=== PATIENT | female | born 1935 | race Caucasian/White ===

== ENCOUNTER 2020-01-11 12:44 | Outpatient (CLI) | payer MEDICARE, SELFPAY ==
[2020-01-11 13:14] LABS: Basophils % 0.2 %; Eosinophils # 0.3 10^3/uL (0.0-0.8); Eosinophils % 5.2 %; Hematocrit 44.2 % (37.0-47.0); Hemoglobin 13.4 g/dL (11.5-15.3); Lymphocytes # 1.1 10^3/uL (0.8-4.8); Lymphocytes % 22.2 %; Mean Corpuscular HGB Conc 30.3 g/dL (30.0-36.0); Mean Corpuscular Volume 92.5 fL (81-99); Mean Platelet Volume 9.1 fL (7.4-10.4); Monocytes # 0.4 10^3/uL (0.2-0.9); Monocytes % 8.1 %; Neutrophils # 3.2 10^3/uL (1.8-7.7); Neutrophils % 63.9 %; Nucleated Red Blood Cells % 0 %; Platelet Count 243 10^3/cmm (130-400); Red Blood Count 4.78 10^6/uL (4.1-5.3); Red Cell Distribution Width 13.2 % (12.1-15.1)
[2020-01-11 14:33] LABS: Alanine Aminotransferase 20 U/L (0-33); Albumin Level 4.5 g/dL (3.5-5.2); Alkaline Phosphatase 75 IU/L (35-105); Anion Gap 15.9 (5-19); Aspartate Amino Transferase 31 U/L (0-32); Blood Urea Nitrogen 29 mg/dL (8-23); Calcium 10.4 mg/dL (8.5-10.5); Carbon Dioxide 28 mmol/L (22-29); Chloride 98 mmol/L (98-107); Ferritin 84 ng/mL (15-150); Glucose 110 mg/dL (65-115); Iron 83 ug/dL (37-145); Osmolality Calculated 284 mOsm/kg (285-295); Percent Saturation 29.2 % (20-50); Potassium 3.9 mmol/L (3.5-5.1); Sodium 138 mmol/L (136-145); Total Bilirubin 0.5 mg/dL (0.15-1.2); Total Iron Binding Capacity 284 mcg/dl; Total Protein 7.5 g/dL (6.6-8.7); Unsaturated Iron Binding 201 ug/dL (112-347)
== END 2020-01-11 12:45 | disposition home or self-care (01) ==
LOC: LAB 12:49 → ONCMED 15:26
PROVIDERS: PCP Family Medicine; Visit Provider Internal Medicine Hematology & Oncology
DX: C18.2 Malignant neoplasm of ascending colon (principal); R91.8 Other nonspecific abnormal finding of lung field; K63.89 Other specified diseases of intestine
CPT/HCPCS: 36415; 71250; 74176; 80053; 82378; 82728; 83540; 83550; 85025

== ENCOUNTER 2020-01-11 14:00 | Outpatient (CLI) | payer MEDICARE, SELFPAY ==
[2020-01-03] MEDS: iohexol 300 mg/mL 50 mL Btl PO (11:20)
--- NOTE | 2020-01-11 14:08 | CT_ITS ---
WS: [id number] CT CHEST, ABDOMEN, AND PELVIS TECHNIQUE: Noncontrast CT of the chest, abdomen, and pelvis with coronal and sagittal reformatted karley ges. CLINICAL INFORMATION: COLON CANCER COMPARISON: CT chest April 18, 2019, August 31, 2018, PET/CT March 05, 2018, CT abdomen pelvis No vember 2016 and September 2016 DLP: 1600.[address] scans at [facility] use at least one of these dose optimization techniques: automat ed exposure control; mA and/or kV adjustment per patient size (includes targeted exams where dose is matched to clinical indication); or iterative reconstruction. CT CHEST: Again seen are several noncalcified pulmonary nodules largest in the left lower lobe measuring 7.5 mm unchanged. Stable noncalcified nodule superior segment left lower lobe measuring 4.5 mm. Tiny subple ural nodule left lower lobe laterally measuring 2.5 mm is unchanged. Additional faint nodule left low er lobe posteriorly measuring 3.7 mm also unchanged. Vascular calcification including coronary. Normal caliber thoracic aorta. No mediastinal or hilar lym phadenopathy. No axillary lymphadenopathy. Adrenal glands are normal. Cholecystectomy clips. Mild tho racic curve. Moderate thoracic kyphosis. CT ABDOMEN AND PELVIS: Noncontrast liver is normal in appearance. Prior cholecystectomy. Adrenal glands are normal. Normal G E junction. Normal noncontrast spleen. Mild aortic calcification. Lobulated nodule along the perineum measuring 2.6 x 2.3 cm is unchanged since 2017. Prior hysterectomy. 2.5 cm lucent lesion in the left ilium is unchanged since 2017. CT/CT chest abd pel wo con IMPRESSION: 1. Noncalcified left greater than right pulmonary nodules unchanged since the prior examination. Recommend 12 month follow-up. 2. Stable largest nodule in the left lower lobe laterally measuring 7.5 mm. 3. No mediastinal or hilar lymphadenopathy. 4. Prior partial colectomy with anastomosis. 5. Stable nodule in the right perineum measuring 2.3 x 2.6 CM. 6. No evidence of new or progressive disease in the chest abdomen or pelvis. 7. Prior cholecystectomy and hysterectomy.
== END 2020-01-11 14:01 | disposition home or self-care (01) ==
LOC: RADWPI 14:01
PROVIDERS: PCP Family Medicine; Visit Provider Internal Medicine Hematology & Oncology
DX: C18.2 Malignant neoplasm of ascending colon (principal); R91.8 Other nonspecific abnormal finding of lung field; K63.89 Other specified diseases of intestine
CPT/HCPCS: 71250; 74176

== ENCOUNTER 2020-01-17 11:26 | Outpatient (CLI) | payer MEDICARE, SELFPAY ==
--- NOTE | 2020-01-29 16:10 | ONC FU_ITS ---
Dr. Duong follow up note Patient: Rhina Brewer Unit #: [id number]: 1935 Dicatated By: Allen Duong M.D.Date of Visit:Jan 17, 2020 Onc Med Follow-up/Prog Note History of Present Illness: Mrs. Rhina Brewer, 84 -year-old, female with long-standing history of alternating constipation and diarrhea , had CT scan of abdomen done in August 2016 showed thickening of the wall of cecum as well as 2.9 cm perineal soft tissue mass and noncalcified 7.6 mm pulmonary nodules in left lower lung subsequently underwent endoscopy on 10/20/2016 showed internal hemorrhoids and 5 mm sessile polyp removed from sigmoid colon and other 5 mm sessile polyp removed from transverse colon addresses was normal and final path report was adenomatous polyps. Then again she underwent follow-up is EGD colonoscopy on 06/01/2017 and it showed circumferential cecal mass and a biopsy was obtained it showed low-grade well to moderately differentiated infiltrating adenocarcinoma subsequently on 06/04/2017 she underwent laparoscopic right hemicolectomy with extracorporeal ileo colic stapled anastomosis and final pathology report came back low-grade infiltrating adenocarcinoma, 0 out of 16 lymph nodes positive. Patient tolerated surgery very well, Now being monitored Last colonoscopy was done on 09/13/2018, was unremarkable Follow-up CT scan of chest abdomen pelvis done on 04/18/2019 showed left greater than right noncalcified pulmonary nodules unchanged from the prior exam Largest nodule in the left lower lobe measuring 7.5 mm. The previously described right middle lobe peribronchial nodularity is stable to improved likely inflammatory No mediastinal or hilar lymphadenopathy no intrahepatic pathology Came for follow-up, denies any specific complaints, no nausea or vomiting, no diarrhea constipation, no abdominal pain, no melena or hematochezia, appetite is good. = Medications: Chlorpheniramine Maleate 1 Tablet (of 4 mg) Oral q 4 hours, Cholecalciferol 1 (58268 Units) Capsule Oral q 14 days, Latanoprost 1 drop(s) (of 0.005 %) Solution Ophthalmic daily, Levothyroxine Sodium 1 (25 mcg) Tablet Oral daily, Lisinopril-Hydrochlorothiazide 1 Tablet (of 20-12.5 mg) Oral daily, Vitamin B12 1 Tablet (of 1000 mg) Oral daily Allergies: Codeine and Related, OxyCODONE HCl, TraMADol HCl, and Vicodin. Review of Systems: Review of Systems is not available for this patient. Vital Signs: Performed on Jan 17, 2020 11:50 Height - 65.50 in Weight - 123.8 lbs BSA - 1.62 sq.m BMI - 20.29 Temperature - 98.0 F (LOW) Pulse - 57 /min (LOW) Respiration - 18 /min BP - 144/73 mm(hg) (HIGH) O2 Sat - 96 % Pain - 0 Performance Status: 0 - Fully active, able to carry on all predisease activities without restrictions. (ECOG) Physical Examination: ENMT - no mouth sores, no thrush, no jaundice, Respiratory - Lungs are clear, Cardiovascular - Regular rate and rhythm of heart, Abdomen - soft, bowel sounds present, Extremities - no visible edema. Lab/Imaging: Test performed on January 11, 2020 12:50 Ferritin 84 ng/mL % Iron Saturation 29.2 % Glucose 110 mg/dL BUN 29 mg/dL Iron, Total 83 mcg/dL Creatinine 1.0 mg/dL TIBC 284 mcg/dL Cr Clearance (Est) 37.13 mL/min Sodium 138 mmol/L Potassium 3.9 mmol/L Chloride 98 mmol/L CO2 28 mmol/L Calcium 10.4 mg/dL Protein, Total 7.5 g/dL Albumin 4.5 g/dL Globulin 3.0 g/dL Bilirubin, Total 0.5 mg/dL Alkaline Phosphatase 75 IU/L AST (SGOT) 31 IU/L ALT (SGPT) 20 IU/L WBC 5.0 10^9/L RBC 4.78 10^12/L HGB 13.4 g/dL HCT 44.2 % MCV 92.5 fl MCH 28.0 pg MCHC 30.3 g/dL RDW 13.2 % Platelet Count 243 10^9/L MPV 9.1 fL Neutrophils (Gran) 3.2 10^9/L Lymphocytes 1.1 10^9/L Monocytes 0.4 10^9/L Eosinophils 0.3 10^9/L Basophils 0.0 10^9/L Manual Lymphocytes 22.2 % Manual Monocytes 8.1 % Manual Eosinophils 5.2 % Manual Basophils 0.2 % CEA 3.0 ng/mL Test performed on Jul 27, 2019 12:05 UIBC 187 ug/dL Anion Gap 16.8 Neutrophil % 67.6 % Lymphocyte % 22.5 % Monocyte % 7.2 % Eosinophil % 2.3 % Basophils % 0.2 % Impression: 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 Low-grade well to moderately differentiated, invasion focally to muscularis propria into superficial serosal connective tissue. Tumor dimensions 6.3 x 3.2 cm T3 Margins clear 16 pericolonic lymph nodes were removed showed no metastasis . 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 due to carcinoma of cecum now on oral iron but noncompliant due to intolerance resolved CT scan of chest done on 08/31/2018 showed no significant change in previously noted bilateral pulmonary nodules and distal third esophageal wall thickening versus pseudo-thickening, Plan: Discussed with patient regarding her labs from 01/11/2020 showed white blood count 5 hemoglobin 13.4 crit 44.2 platelets 243,000 CMP within normal limits CEA 3.[address] scan of chest abdomen pelvis showed no recurrence of disease. Stable noncalcified left greater than right pulmonary nodules unchanged since prior exam. Stable largest nodule in the left lower lobe measuring 7.5 mm. Stable nodule in the right perineum since 2017, measuring 2.3 x 2.6 cm. Clinically, patient is doing well with no signs symptom suggestive of disease progression and her lab workup as well as follow-up CT scan of chest abdomen pelvis showed no evidence of recurrence of disease and stable pulmonary nodules. And PET scan in 12 months is recommended , In that case patient will return to clinic in 6 months with CBC CMP and CEA. Signed By: Allen Duong M.D. <<Signature on File>>
== END 2020-01-17 11:27 | disposition home or self-care (01) ==
LOC: ONCMED 11:33
PROVIDERS: PCP Family Medicine; Visit Provider Internal Medicine Hematology & Oncology
DX: Z08 Encounter for follow-up examination after completed treatment for malignant neoplasm (principal); Z85.038 Personal history of other malignant neoplasm of large intestine; R91.8 Other nonspecific abnormal finding of lung field; Z90.49 Acquired absence of other specified parts of digestive tract; Z86.2 Personal history of diseases of the blood and blood-forming organs and certain disorders involving the immune mechanism
CPT/HCPCS: 99214; G0463

== ENCOUNTER 2020-02-07 10:30 | Outpatient (CLI) | payer MEDICARE, SELFPAY ==
--- NOTE | 2020-02-07 10:39 | XR_ITS ---
WS: [id number] THORACIC SPINE TECHNIQUE: 3 views of the thoracic spine CLINICAL INFORMATION: CHRONIC BACK PAIN COMPARISON: None. FINDINGS: Mild lumbar curve convex left. Aortic calcification. Lungs are well aerated. Cholecystectomy clips. M ild thoracic kyphosis. No acute appearing compression fractures. Disc space heights and vertebral bod y heights well-preserved. XR/XR thoracic spine 2V [id number] IMPRESSION: 1. No acute appearing thoracic spine findings.
--- NOTE | 2020-02-07 10:40 | XR_ITS ---
WS: [id number] LUMBAR SPINE TECHNIQUE: 3 views of the lumbar spine CLINICAL INFORMATION: CHRONIC BACK PAIN COMPARISON: None. FINDINGS: Mild lumbar curve convex right. Moderate to advanced spondylitic changes. Cholecystectomy clips. Five [id number] lumbar vertebral bodies. Disc space narrowing worse at L1-L2, L4-L5 and L5-S1. O steopenia. Moderate to advanced arthropathy L5-S1 with bony foraminal narrowing. Chronic appearing mi ld compression superior endplates at L1 L2 and L3 appears unchanged since 2014 XR/XR lumbar spine 2-3V* [id number] IMPRESSION: 1. Mild lumbar curve convex right with moderate to advanced spondylitic change s. 2. Disc space narrowing worse at L1-L2, L4-L5 and L5-S1. 3. No acute appearing compression fractures. 4. Moderate to advanced facet arthropathy L5-S1.
== END 2020-02-07 10:31 | disposition home or self-care (01) ==
LOC: RADWPI 10:34
PROVIDERS: Family Provider Family Medicine; PCP Family Medicine; Visit Provider Family Medicine
DX: M54.89 Other dorsalgia (principal); G89.29 Other chronic pain; M48.061 Spinal stenosis, lumbar region without neurogenic claudication; M47.817 Spondylosis without myelopathy or radiculopathy, lumbosacral region
CPT/HCPCS: 72070; 72100

== ENCOUNTER 2020-05-01 12:02 | Outpatient (CLI) | payer MEDICARE, SELFPAY ==
--- NOTE | 2020-05-01 12:07 | MR_ITS ---
WS: [id number] MRI HEAD WITHOUT CONTRAST TECHNIQUE: Sagittal T1, T2 axial, T2 axial FLAIR, axial and coronal T1 images, axial susceptibility w eighted imaging, axial diffusion weighted images, and coronal T2 images were obtained. CLINICAL INFORMATION: ATYPICAL HEADACHE COMPARISON: MRI [address] FINDINGS: No evidence of restricted diffusion to suggest acute ischemia. Ventricular system and basal cisterns are patent. Moderate to advanced small vessel changes with moderate parenchymal volume loss. Normal p osterior fossa. Normal vascular flow voids at the skull base. No extra-axial fluid collections. No ev idence of mass or mass effect. Partial opacification of the left mastoid air cells. Mild mucosal thickening in the ethmoid air cells . Normal optic chiasm and pituitary infundibulum. Moderate to advanced symmetric atrophy involving the temporal lobes and hippocampal formations. No he mosiderin on the susceptibly weighted images. MR/MR head wo con* [id number] IMPRESSION: 1. No evidence of restricted diffusion to suggest acute ischemia. 2. Moderate to advanced small vessel changes with moderate parenchymal volume loss. 3. Moderate to advanced symmetric atrophy involving the temporal lobes and hip pocampal formations. 4. Partial opacification left mastoid air cells with mucosal thickening ethmoi d air cells.
== END 2020-05-01 12:03 | disposition home or self-care (01) ==
PROVIDERS: Family Provider Family Medicine; PCP Family Medicine; Visit Provider Family Medicine
DX: R51 Headache (principal); E53.8 Deficiency of other specified B group vitamins; E03.9 Hypothyroidism, unspecified; G31.9 Degenerative disease of nervous system, unspecified
CPT/HCPCS: 70551

== ENCOUNTER 2020-07-03 09:35 | Outpatient (CLI) | payer MEDICARE, SELFPAY ==
[2020-07-03 10:19] LABS: Basophils % 0.2 %; Eosinophils # 0.1 10^3/uL (0.0-0.8); Eosinophils % 2.5 %; Hematocrit 41.5 % (37.0-47.0); Hemoglobin 12.8 g/dL (11.5-15.3); Lymphocytes # 1.1 10^3/uL (0.8-4.8); Lymphocytes % 25.9 %; Mean Corpuscular HGB Conc 30.8 g/dL (30.0-36.0); Mean Corpuscular Hemoglobin 28.1 pg (28.0-34.0); Mean Corpuscular Volume 91.2 fL (81-99); Mean Platelet Volume 9.3 fL (7.4-10.4); Monocytes # 0.4 10^3/uL (0.2-0.9); Monocytes % 8.6 %; Neutrophils % 62.6 %; Nucleated Red Blood Cells % 0 %; Platelet Count 242 10^3/cmm (130-400); Red Blood Count 4.55 10^6/uL (4.1-5.3); Red Cell Distribution Width 12.9 % (12.1-15.1); White Blood Count 4.3 10^3/uL (4.0-10.0)
[2020-07-03 10:36] LABS: Alanine Aminotransferase 14 U/L (0-33); Albumin Level 4.5 g/dL (3.5-5.2); Alkaline Phosphatase 74 IU/L (35-105); Anion Gap 14.4 (5-19); Aspartate Amino Transferase 24 U/L (0-32); Blood Urea Nitrogen 25 mg/dL (8-23); Calcium 9.8 mg/dL (8.5-10.5); Carbon Dioxide 27 mmol/L (22-29); Chloride 100 mmol/L (98-107); Globulin 2.5 g/dL (1.3-4.6); Glucose 105 mg/dL (65-115); Osmolality Calculated 289 mOsm/kg (285-295); Potassium 4.4 mmol/L (3.5-5.1); Sodium 137 mmol/L (136-145); Total Bilirubin 0.4 mg/dL (0.15-1.2)
[2020-07-03 11:00] LABS: Carcinoembryonic Antigen 2.7 ng/mL (0.0-4.7)
--- NOTE | 2020-07-03 13:18 | ONC FU_ITS ---
Dr. Duong follow up note Patient: Rhina Brewer Unit #: [id number]: 1935 Dicatated By: Allen Duong M.D.Date of Visit:Jul 03, 2020 Onc Med Follow-up/Prog Note History of Present Illness: Mrs. Rhina Brewer, 84 -year-old, female with long-standing history of alternating constipation and diarrhea , had CT scan of abdomen done in August 2016 showed thickening of the wall of cecum as well as 2.9 cm perineal soft tissue mass and noncalcified 7.6 mm pulmonary nodules in left lower lung subsequently underwent endoscopy on 10/20/2016 showed internal hemorrhoids and 5 mm sessile polyp removed from sigmoid colon and other 5 mm sessile polyp removed from transverse colon addresses was normal and final path report was adenomatous polyps. Then again she underwent follow-up is EGD colonoscopy on 06/01/2017 and it showed circumferential cecal mass and a biopsy was obtained it showed low-grade well to moderately differentiated infiltrating adenocarcinoma subsequently on 06/04/2017 she underwent laparoscopic right hemicolectomy with extracorporeal ileo colic stapled anastomosis and final pathology report came back low-grade infiltrating adenocarcinoma, 0 out of 16 lymph nodes positive. Patient tolerated surgery very well, Now being monitored Last colonoscopy was done on 09/13/2018, was unremarkable Follow-up CT scan of chest abdomen pelvis done on 04/18/2019 showed left greater than right noncalcified pulmonary nodules unchanged from the prior exam Largest nodule in the left lower lobe measuring 7.5 mm. The previously described right middle lobe peribronchial nodularity is stable to improved likely inflammatory No mediastinal or hilar lymphadenopathy no intrahepatic pathology Came for follow-up, denies any specific complaints except chronic back pain which is, as per patient due to chronic arthritis and no melena or hematochezia, no nausea or vomiting, no diarrhea constipation, no jaundice, no abdominal pain, no hemoptysis or hematemesis, appetite is good = Medications: Chlorpheniramine Maleate 1 Tablet (of 4 mg) Oral q 4 hours, Cholecalciferol 1 (71626 Units) Capsule Oral q 14 days, Latanoprost 1 drop(s) (of 0.005 %) Solution Ophthalmic daily, Levothyroxine Sodium 1 (25 mcg) Tablet Oral daily, Lisinopril-Hydrochlorothiazide 1 Tablet (of 20-12.5 mg) Oral daily, Vitamin B12 1 Tablet (of 1000 mg) Oral daily Allergies: Codeine and Related, OxyCODONE HCl, TraMADol HCl, and Vicodin. Review of Systems: Review of Systems is not available for this patient. Vital Signs: Performed on Jul 03, 2020 11:28 Height - 65.50 in Weight - 118.2 lbs (LOW) BSA - 1.59 sq.m BMI - 19.37 Temperature - 98.0 F (LOW) Pulse - 58 /min (LOW) Respiration - 18 /min BP - 144/75 mm(hg) (HIGH) O2 Sat - 100 % Pain - 0 Performance Status: 0 - Fully active, able to carry on all predisease activities without restrictions. (ECOG) Physical Examination: ENMT - No mouth sores, no thrush, no jaundice, Respiratory - Lungs are clear to auscultation, Cardiovascular - Regular rate and rhythm of heart, Abdomen - Soft, bowel sounds present, Extremities - No visible edema. Lab/Imaging: Test performed on January 11, 2020 12:50 Ferritin 84 ng/mL % Iron Saturation 29.2 % Glucose 110 mg/dL BUN 29 mg/dL Iron, Total 83 mcg/dL Creatinine 1.0 mg/dL TIBC 284 mcg/dL Cr Clearance (Est) 37.13 mL/min Sodium 138 mmol/L Potassium 3.9 mmol/L Chloride 98 mmol/L CO2 28 mmol/L Calcium 10.4 mg/dL Protein, Total 7.5 g/dL Albumin 4.5 g/dL Globulin 3.0 g/dL Bilirubin, Total 0.5 mg/dL Alkaline Phosphatase 75 IU/L AST (SGOT) 31 IU/L ALT (SGPT) 20 IU/L WBC 5.0 10^9/L RBC 4.78 10^12/L HGB 13.4 g/dL HCT 44.2 % MCV 92.5 fl MCH 28.0 pg MCHC 30.3 g/dL RDW 13.2 % Platelet Count 243 10^9/L MPV 9.1 fL Neutrophils (Gran) 3.2 10^9/L Lymphocytes 1.1 10^9/L Monocytes 0.4 10^9/L Eosinophils 0.3 10^9/L Basophils 0.0 10^9/L Manual Lymphocytes 22.2 % Manual Monocytes 8.1 % Manual Eosinophils 5.2 % Manual Basophils 0.2 % CEA 3.0 ng/mL Impression: 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 Low-grade well to moderately differentiated, invasion focally to muscularis propria into superficial serosal connective tissue. Tumor dimensions 6.3 x 3.2 cm T3 Margins clear 16 pericolonic lymph nodes were removed showed no metastasis . 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 due to carcinoma of cecum now on oral iron but noncompliant due to intolerance resolved CT scan of chest done on 08/31/2018 showed no significant change in previously noted bilateral pulmonary nodules and distal third esophageal wall thickening versus pseudo-thickening, Plan: Discussed with patient regarding her labs white blood count 4.3 hemoglobin 12.8 hematocrit 41.5 platelets 242,000 CMP within normal limits CEA 2.7 Clinically, patient is doing well with no new signs symptoms suggestive of recurrence of disease her follow-up lab work-up within normal range As far as bilateral pulmonary nodules are concerned, will consider CT scan of chest prior to next visit in 6 months with CBC CMP Signed By: Allen Duong M.D. <<Signature on File>>
== END 2020-07-03 09:36 | disposition home or self-care (01) ==
LOC: ONCMED 09:39
PROVIDERS: PCP Family Medicine; Visit Provider Internal Medicine Hematology & Oncology
DX: Z08 Encounter for follow-up examination after completed treatment for malignant neoplasm (principal); Z85.038 Personal history of other malignant neoplasm of large intestine; R91.8 Other nonspecific abnormal finding of lung field; Z90.49 Acquired absence of other specified parts of digestive tract
CPT/HCPCS: 36415; 80053; 82378; 85025; G0463

== ENCOUNTER 2020-11-06 11:08 | Outpatient (CLI) | payer MEDICARE, SELFPAY ==
--- NOTE | 2020-11-06 11:20 | MM_ITS ---
WS: [id number] DIAGNOSTIC BILATERAL DIGITAL MAMMOGRAM WITH CAD RIGHT breast ultrasound, limited HISTORY: RIGHT BREAST MASS COMPARISON: 01/03/2015 TECHNIQUE: Bilateral craniocaudad, mediolateral oblique, and mediolateral views are submitted. Spot c ompression RIGHT CC. Computer aided detection utilized. Breast composition: There are scattered areas of fibroglandular density. Spiculated mass with increas ed density noted in the posterior RIGHT breast just below and lateral to the nipple line. There is ad jacent tethering and mild distortion associated with the mass. Otherwise benign calcifications in eac h breast and vascular calcifications. RIGHT breast ultrasound, limited. Solid mass in the RIGHT breast at 7:00 in the subareolar location corresponds to the mammographic abn ormality. Lobulated borders with increased vascularity. Mass measures 1.7 x 1.3 x 2.1 cm. MM/[place] [id number] IMPRESSION: BI-RADS: 5-Highly Suggestive of Malignancy FOLLOW UP: Biopsy Recommended Ultrasound-guided biopsy recommended of the RIGHT breast mass at 7:00. Notified Deshawn Marin MD at 11/06/2020 12:35 PM.
== END 2020-11-06 11:09 | disposition home or self-care (01) ==
LOC: RADSHAW 11:13
PROVIDERS: PCP Family Medicine; Visit Provider Family Medicine
DX: N63.13 Unspecified lump in the right breast, lower outer quadrant (principal)
CPT/HCPCS: 76642; 77066

== ENCOUNTER 2020-11-11 11:39 | Outpatient (CLI) | payer MEDICARE, SELFPAY ==
--- NOTE | 2020-11-11 11:59 | US_ITS ---
WS: [id number] ULTRASOUND-GUIDED RIGHT BREAST BIOPSY HISTORY: R BREAST MASS COMPARISON: 11/06/2020 Procedure, risks and complications are explained to the patient. Medications are reviewed. Consent is obtained. The mass in the RIGHT breast is localized with ultrasound. Mass localizes to 7:00. Skin is cleansed w ith ChloraPrep and anesthetized with 1% buffered lidocaine. Small dermatome is made. Under sterile co nditions mass is biopsied with a 14-gauge Achieve needle. Multiple core biopsies are performed. Mater ial placed in formalin and sent to pathology for review. No complications encountered. Breast tissue marker (Joystickers ultrasound enhanced ribbon): Single. Patient left the radiology suite with no complications. Patient is instructed to return to [facility] or [facility] with any concerns. US/[place] [id number] IMPRESSION: 1. Uncomplicated core needle biopsy RIGHT breast mass at 7:00. 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 RECOMMENDATION: Surgical and oncologic follow-up.
[2020-11-25 12:10] LABS: Miscellaneous Test See Scanned Lab Rpt
== END 2020-11-11 11:40 | disposition home or self-care (01) ==
LOC: RAD 11:46
PROVIDERS: PCP Family Medicine; Visit Provider Family Medicine
DX: R92.8 Other abnormal and inconclusive findings on diagnostic imaging of breast (principal); C50.511 Malignant neoplasm of lower-outer quadrant of right female breast
CPT/HCPCS: 19083; 88305; 88361; 88367; 88374

== ENCOUNTER 2020-11-27 12:45 | Outpatient (CLI) | payer MEDICARE, SELFPAY ==
--- NOTE | 2020-11-27 16:43 | ONC FU_ITS ---
Dr. Duong follow up note Patient: Rhina Brewer Unit #: [id number]: 1935 Dicatated By: Allen Duong M.D.Date of Visit:Nov 27, 2020 Onc Med Follow-up/Prog Note History of Present Illness: Mrs. Rhina Brewer, 85 -year-old, female with long-standing history of alternating constipation and diarrhea , had CT scan of abdomen done in August 2016 showed thickening of the wall of cecum as well as 2.9 cm perineal soft tissue mass and noncalcified 7.6 mm pulmonary nodules in left lower lung subsequently underwent endoscopy on 10/20/2016 showed internal hemorrhoids and 5 mm sessile polyp removed from sigmoid colon and other 5 mm sessile polyp removed from transverse colon addresses was normal and final path report was adenomatous polyps. Then again she underwent follow-up is EGD colonoscopy on 06/01/2017 and it showed circumferential cecal mass and a biopsy was obtained it showed low-grade well to moderately differentiated infiltrating adenocarcinoma subsequently on 06/04/2017 she underwent laparoscopic right hemicolectomy with extracorporeal ileo colic stapled anastomosis and final pathology report came back low-grade infiltrating adenocarcinoma, 0 out of 16 lymph nodes positive. Patient tolerated surgery very well, Now being monitored Last colonoscopy was done on 09/13/2018, was unremarkable Follow-up CT scan of chest abdomen pelvis done on 04/18/2019 showed left greater than right noncalcified pulmonary nodules unchanged from the prior exam Largest nodule in the left lower lobe measuring 7.5 mm. 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 Other than that patient denies any melena or hematochezia, denies any jaundice denies any bony pains denies any right axillary fullness denies any nipple discharge denies any headaches blurred vision or double vision. Denies any weight loss. = Medications: Chlorpheniramine Maleate 1 Tablet (of 4 mg) Oral q 4 hours, Cholecalciferol 1 (44223 Units) Capsule Oral q 14 days, Latanoprost 1 drop(s) (of 0.005 %) Solution Ophthalmic daily, Levothyroxine Sodium 1 (25 mcg) Tablet Oral daily, Lisinopril-Hydrochlorothiazide 1 Tablet (of 20-12.5 mg) Oral daily, Vitamin B12 1 Tablet (of 1000 mg) Oral daily Allergies: Codeine and Related, OxyCODONE HCl, TraMADol HCl, and Vicodin. Review of Systems: Review of Systems is not available for this patient. Vital Signs: Performed on Nov 27, 2020 15:15 Height - 65.50 in Weight - 113 lbs (LOW) BSA - 1.56 sq.m BMI - 18.52 Temperature - 97.5 F (LOW) Pulse - 62 /min Respiration - 18 /min BP - 161/89 mm(hg) (HIGH) O2 Sat - 97 % Pain - 7 Fatigue - 5 Performance Status: 1 - No physically strenuous activity, but ambulatory and able to carry out light or sedentary work (e.g. office work, light house work). (ECOG) Physical Examination: ENMT - No mouth sores, no thrush, no jaundice, Respiratory - Lungs are clear to auscultation, Cardiovascular - Regular rate and rhythm of heart, Breasts - There is 2 x 4 cm mass in the lower outer quadrant of right breast, status post biopsy, with mild tenderness, no overlying skin changes no nipple discharge or inversion noted, no right axillary lymphadenopathy noted, Abdomen - Soft, bowel sounds present, Extremities - No visible edema. Lab/Imaging: Test performed on Jul 03, 2020 09:55 Sodium 137 mmol/L Potassium 4.4 mmol/L Chloride 100 mmol/L CO2 27 mmol/L Anion Gap 14.4 BUN 25 mg/dL Creatinine 1.0 mg/dL Cr Clearance (Est) 35.45 mL/min Glucose 105 mg/dL Osmolality - Calculated 289 mOsm/kg Calcium 9.8 mg/dL Protein, Total 7.0 g/dL Albumin 4.5 g/dL Globulin 2.5 g/dL Bilirubin, Total 0.4 mg/dL ALT (SGPT) 14 U/L AST (SGOT) 24 U/L Alkaline Phosphatase 74 IU/L WBC 4.3 10 3/uL RBC 4.55 10 6/uL HGB 12.8 g/dL HCT 41.5 % MCV 91.2 fL MCH 28.1 pg MCHC 30.8 g/dL RDW 12.9 % Platelet Count 242 10 3/cmm MPV 9.3 fL Neutrophils 2.70 10 3/uL Lymphocytes 1.1 10 3/uL Monocytes 0.4 10 3/uL Eosinophils 0.1 10 3/uL Basophils 0.0 10 3/uL Neutrophil % 62.6 % Lymphocyte % 25.9 % Monocyte % 8.6 % Eosinophil % 2.5 % Basophils % 0.2 % NRBC % 0 % CEA 2.7 ng/mL Impression: 1 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 Low-grade well to moderately differentiated, invasion focally to muscularis propria into superficial serosal connective tissue. Tumor dimensions 6.3 x 3.2 cm T3 Margins clear 16 pericolonic lymph nodes were removed showed no metastasis . 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 due to carcinoma of cecum now on oral iron but noncompliant due to intolerance resolved CT scan of chest done on 08/31/2018 showed no significant change in previously noted bilateral pulmonary nodules and distal third esophageal wall thickening versus pseudo-thickening, Plan: Discussed with patient regarding her right breast biopsy report which confirmed moderately differentiated intraductal carcinoma, 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 as far as treatment options is concern either lumpectomy with sentinel lymph node biopsy followed by radiation therapy or right modified mastectomy with sentinel lymph node biopsy is recommended and if there is no sentinel lymph node involvement, will consider prognostic profiling with Oncotype DX score, and consider starting her on hormonal therapy with aromatase inhibitor. We will also consider CBC CMP when she return to clinic 2 weeks after right breast surgery. also discussed with patient's son and daughter on the phone, patient will call her surgeon for appointment after discussing with her PMD. Signed By: Allen Duong M.D. <<Signature on File>>
== END 2020-11-27 12:46 | disposition home or self-care (01) ==
PROVIDERS: PCP Family Medicine; Visit Provider Internal Medicine Hematology & Oncology
DX: C50.811 Malignant neoplasm of overlapping sites of right female breast (principal); Z17.0 Estrogen receptor positive status [ER+]; C78.5 Secondary malignant neoplasm of large intestine and rectum; C78.01 Secondary malignant neoplasm of right lung; C78.02 Secondary malignant neoplasm of left lung; D50.0 Iron deficiency anemia secondary to blood loss (chronic); Z79.811 Long term (current) use of aromatase inhibitors; Z79.899 Other long term (current) drug therapy
CPT/HCPCS: 99215

== ENCOUNTER → 2020-12-05 09:32 | Outpatient (BNVA) | payer MEDICARE, SELFPAY | PROVIDERS: PCP Family Medicine; Visit Provider Surgery | DX: Z20.822 Contact with and (suspected) exposure to COVID-19 (principal); C50.911 Malignant neoplasm of unspecified site of right female breast | CPT/HCPCS: 87635 ==

== ENCOUNTER 2020-12-06 06:00 | Outpatient (RCR) | payer MEDICARE, SELFPAY | END 2020-12-13 23:59 | disposition home or self-care (01) | LOC: SPT 06:00 | PROVIDERS: PCP Family Medicine; Referring Provider Surgery; Visit Provider Surgery | DX: C50.911 Malignant neoplasm of unspecified site of right female breast (principal) | CPT/HCPCS: 97161 ==

== ENCOUNTER 2020-12-09 14:05 | Observation (INO) | payer MEDICARE, SELFPAY ==
[2020-12-06 09:53] VITALS: BMI 18.8
--- NOTE | 2020-12-06 10:16 | ECG_ITS ---
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 Measurements Intervals [place] Rate: 69 P: 87 MD: 151 QRS: 30 QRSD: 92 T: 40 QT: 391 QTc: 421 Interpretive Statements SINUS RHYTHM Compared to ECG 10/01/2018 19:25:50 No significant changes Electronically Signed On 12-07-2020 5:24:47 CDT by Deisi Rollins M.D. [id number]
--- NOTE | 2020-12-06 17:11 | P.ANESASSM_ITS ---
Pre-Anesthetic Assessment Pre-Anesthetic Assessment: Height/Weight: Height 1.65 m Weight 51.256 kg Proposed Procedure: Operation Date: 12/09/20 13:00 Proposed Procedures p Mastectomy Simple 16092 23934 c50.911(Right) - Surendra Walters MD s Sentinal Lymph Node Biopsy(Right) - Surendra Walters MD Was Beta Ada taken within 24 hours: N/A Was Clonidine taken within 24 hours: N/A Social: Social History: No alcohol and No tobacco Exam: Pre-Anes Outpt Exam: alert, oriented x 3, clear to auscultation bilaterally and regular rate & rhythm Airway: Submandibular: WNL Cervical ROM: WNL MP: 2 Dentition: Full CV/HEM: CV/HEM: HTN Metabolic: Metabolic: Thyroid Neuropsych: Comments: [place] Anesthetic Plan: ASA status: 2 Anesthesia: General Risk of > 500 ml blood loss (7ml/kg in children): No PFSH Anesthesia PFSH: Medical History (Updated 12/02/20 @ 15:03 by Surendra Walters MD) Breast cancer, right History of colon cancer Hypertension Hypothyroidism Vitamin D deficiency Surgical History (Updated 12/02/20 @ 15:00 by Surendra Walters MD) History of appendectomy History of back surgery 2x History of bilateral cataract extraction History of cholecystectomy History of colon resection History of colonoscopy History of hysterectomy Family History (Updated 12/02/20 @ 14:40 by SOLO Peres) Denies family history of Anesthesia complication Bleeding disorder Social History (Updated 12/02/20 @ 14:40 by SOLO Peres) Smoking and tobacco status: never smoked Data Anesthesia Cardiac Studies: No Data to Display
[2020-12-09] VITALS (18 sets, daily range): BP systolic 147–184; BP diastolic 62–87; PULSE 59–78; RESP 14–18; TEMP 36.1–36.7; O2SAT 94–100
--- NOTE | 2020-12-09 08:09 | W.PM.OPSUD ---
Surgery/Procedure H&P Update DATE OF PROCEDURE: December 09, 2020 DATE H&P PERFORMED: 12/02/20 H&P UPDATE INFORMATION: I have reviewed H&P completed within last 30 days, I have examined patient prior to procedure and No changes to prior documentation PREOP DIAGNOSIS: Right breast cancer PLANNED PROCEDURE: Operation Date: 12/09/20 13:00 Proposed Procedures p Mastectomy Simple 21630 42093 c50.911(Right) - Surendra Walters MD s Sentinal Lymph Node Biopsy(Right) - Surendra Walters MD
[2020-12-09] MEDS: sodium chloride 0.9% 1,000 ML 30 ML IV (08:10)
--- NOTE | 2020-12-09 08:11 | NM_ITS ---
WS: [id number] NUCLEAR MEDICINE SENTINEL LYMPH NODE IMAGING HISTORY: simple mastectomy, RIGHT COMPARISON: Prior imaging studies are reviewed. TECHNIQUE: The patient was injected with 1.1 mCi of Technetium 99 ultra filtered sulfur colloid. Inje ction is intradermal in a periareolar location. Four aliquots are used. Injection of radionuclide in the RIGHT breast. NM/NM sentinel node inject [id number] IMPRESSION: Status post RIGHT sentinel node injection.
--- NOTE | 2020-12-09 09:02 | P.ANESUD_ITS ---
Pre-Anesthetic Update Pre-Anesthetic Assessment: Date of Surgery/Procedure: 12/09/20 Preop Kori gnosis: Right breast cancer Proposed Procedure: Operation Date: 12/09/20 13:00 Proposed Procedures p Mastectomy Simple 12251 55300 c50.911(Right) - Surendra Walters MD s Sentinal Lymph Node Biopsy(Right) - Surendra Walters MD Last Intake: Intake Last Liquid Date 12/08/20 Last Solid Date 12/08/20 Vitals: Temperature 97.8 F 12/09/20 07:40 Pulse Rate 76 12/09/20 07:40 Respiratory Rate 18 12/09/20 07:40 Blood Pressure 147/85 12/09/20 07:40 Blood Pressure Esther n 105 12/09/20 07:40 Pulse Oximetry 99 12/09/20 07:40 Oxygen Delivery Me thod 12/09/20 07:40 Exam: Pre-Anes Outpt Exam: alert, oriented x 3, clear to auscultation bilaterally and regular rate & rhythm Other Pertinent Information: Other Pertinent Information: no changes Cardiac Studies: No Data to Display
--- NOTE | 2020-12-09 09:02 | SUR.PREOP ---
Central Node injection complete at 08:50.
[2020-12-09] MEDS: thrombin 5,000 unit SDV 5000 UNIT (13:55)
--- NOTE | 2020-12-09 14:07 | P.OP_ITS ---
Operative Report Date of procedure: December 09, 2020 Pre-op Diagnosis: Right breast cancer Post-op Findings: Right breast cancer 7 o'clock position Procedure Done: 1. Right mastectomy 2. Right axillary sentinel lymph node biopsy Specimens removed/disposition: Right breast, short superior, long stitch lateral Right axillary sentinel lymph node biopsy Surgeon: Surendra Walters Anesthesia: General Condition: stable Disposition: PACU Procedure: The patient was taken to the operating room and intubated under general anesthesia after IV antibiotic and instead. The right chest and arm was prepped and draped in a sterile manner. Using a 15 blade an elliptical incision was made around the nipple areolar complex and dermis was divided with electrocautery. 40 mL of normal saline mixed with 20 mL of 1% lidocaine with epinephrine was injected deep to the dermis using a 22-gauge spinal needle for tumescence. Using Romeo scissors skin flaps were raised superiorly up to the second rib space, inferiorly to the inframammary line, medially up to the lateral edge of sternum and laterally up to the latissimus dorsi in the avascular plane. Using electrocautery the breast along with the pectoral fascia was dissected off the pectoralis muscle starting superiorly and medially and moving inferiorly and laterally. A short stitch was placed superiorly and long stitch was placed laterally using 2-0 silk on the partially excised breast specimen. The lateral edge of the breast was freed along with the axillary tail and the specimen was removed entirely from the operative field. There were couple of bleeding muscular branches from the pectoral muscle which were controlled with cautery. The wound was irrigated with warm water and the site was reexamined to ensure adequate hemostasis. There was no active bleeding note d. A technetium sulfur colloid had been injected previously by the radiologist in the periareolar area. Using gamma probe radioactive lymph node was identified which was dissected free from the surrounding subcutaneous tissue and vascular bundle using electrocautery and sent to pathology. There was no other significant radioactive lymph nodes noted in the axilla. A stab incision was made laterally and 10 flat CODY drain was placed along the inframammary fold and attached to bulb suction. The skin flaps appeared healthy and of adequate thickness. The dermis was approximated using running 3-0 Vicryl suture and the skin was closed using running subcuticular 4-0 Monocryl suture and Dermabond. Fluffs and a surgical bra was used for pressure dressing. Patient was transferred to the recovery room in stable condition.
--- NOTE | 2020-12-09 14:25 | SUR.PHASEI ---
pt resting quietly with good resp noted VSS PT STATES PAIN IS ( A LITTLE BIT) PT DOES NOT WANT IV PAIN MEDS AT THIS TIME
[2020-12-09] MEDS: acetaminophen 325 mg Tablet 650 MG PO ×2 (15:41→21:40)
[2020-12-09] MEDS: D5-NS 0.45% + KCL 20 mEq 20 MEQ/1,000 ML BAG 50 MEQ IV (15:45)
[2020-12-09] MEDS: sennosides-docusate Tablet 1 TAB PO (17:18)
[2020-12-09] MEDS: hydroCHLOROthiazide 25 mg Tablet 12.5 MG PO (17:18)
[2020-12-09] MEDS: lisinopril 20 mg Tablet PO (17:19)
--- NOTE | 2020-12-10 01:08 | PC.NURSE ---
STRAIGHT CATH Pt has been voiding 100-125ml at at time tonight with c/o not feeling like she is emptying her bladder when she goes and still feels urge to urinate. Dr Walters was called after bladder scan showed >616 ml. Straight cath done with return of 500ml urine and says feels better
[2020-12-10 03:08] LABS: Basophils % 0.3 %; Eosinophils # 0.1 10^3/uL (0.0-0.8); Eosinophils % 2.3 %; Hematocrit 37.4 % (37.0-47.0); Hemoglobin 11.4 g/dL (11.5-15.3); Lymphocytes # 0.8 10^3/uL (0.8-4.8); Mean Corpuscular HGB Conc 30.5 g/dL (30.0-36.0); Mean Corpuscular Hemoglobin 27.7 pg (28.0-34.0); Mean Platelet Volume 9.4 fL (7.4-10.4); Monocytes # 0.6 10^3/uL (0.2-0.9); Monocytes % 9.5 %; Neutrophils # 4.42 10^3/uL (1.8-7.7); Neutrophils % 73.6 %; Nucleated Red Blood Cells % 0 %; Platelet Count 195 10^3/cmm (130-400); Red Blood Count 4.11 10^6/uL (4.1-5.3); Red Cell Distribution Width 12.9 % (12.1-15.1)
[2020-12-10 03:17] LABS: Anion Gap 10.9 (5-19); Blood Urea Nitrogen 18 mg/dL (8-23); Calcium 8.5 mg/dL (8.5-10.5); Carbon Dioxide 29 mmol/L (22-29); Chloride 101 mmol/L (98-107); Glucose 123 mg/dL (65-115); Osmolality Calculated 287 mOsm/kg (285-295); Potassium 3.9 mmol/L (3.5-5.1); Sodium 137 mmol/L (136-145)
[2020-12-10 04:04] VITALS: BP 134/72; PULSE 57; RESP 17; TEMP 36.7; O2SAT 99
[2020-12-10] MEDS: acetaminophen 325 mg Tablet 650 MG PO (04:34)
--- NOTE | 2020-12-10 05:56 | PC.NURSE ---
SHIFT SUMMARY Has done well tonight except for the difficulties with urination. Still only voiding 100ml at a time this morning and cont to c/o feeling like she still needs to urinate after she goes. Bladder scan was rechecked and showed 234ml this morning. Will continue to monitor. Dressing/tunde binder in place to chest. CODY with 82ml sanguinous liquid drainage this shift. Has been up to ambulate in coates this morning with walker & nurse. Ronaldo well. Requests to only take Tylenol for pain and has been medicated X2 this shift. IV fluids infusing at 50ml/hr rate.
[2020-12-10 07:25] VITALS: BP 122/69; PULSE 63; RESP 18; TEMP 36.6; O2SAT 99
--- NOTE | 2020-12-10 08:05 | PC.NURSE ---
In room as patient's call light is going off. Patient is slumped over to the side of her chair that she is sitting in. Sat patient up in an upright position and asked patient if anything was wrong. Patient just stared at this nurse. Called out for help and Yvette PATTERSON entered the room. Patient physically picked up by this nurse and Yvette PATTERSON and placed in bed. Once laid down in bed patient rolled to her left side as she began to vomit. Patient then stated, I am sick to my stomach. Patient vomited about 50 mls of food and liquid. Asked patient if she felt like she had choked on her food and patient states, NO I did not choke I have done this before when I get sick to my stomach I feel like I am going to pass out. I am okay. I did not mean to scare you. Vital signs 98.3 Temp, 77 HR, 132/63 BP, 98% RA. Patient denies any new or increase in pain. Patient is A&Ox3. 0845 Dr. Walters notified of event. No new orders received.
[2020-12-10] MEDS: ondansetron 2 mg/ML SDV 2 mL 4 MG IVP (08:23)
[2020-12-10] MEDS: D5-NS 0.45% + KCL 20 mEq 20 MEQ/1,000 ML BAG 50 MEQ IV (08:33)
[2020-12-10] MEDS: sennosides-docusate Tablet 1 TAB PO (09:02)
[2020-12-10] MEDS: lisinopril 20 mg Tablet PO (09:02)
[2020-12-10] MEDS: hydroCHLOROthiazide 25 mg Tablet 12.5 MG PO (09:02)
--- NOTE | 2020-12-10 09:48 | PC.CHAP ---
Pastoral Care Encounter/Spiritual Assessment Type of Contact [] Declined construction framer visit [] Patient/Family/Request visit [] Outpatient visit [] Follow-up visit [] Physician referral [] Code/Alert [x] Routine visit [] Staff referral [] Actively dying [] Patient sleeping [] Family support [] [] Out of room [] Palliative care [] [] Receiving care in room [] Pre-surgical visit [] Trauma [] Long length of stay [] ICU visit [] Other: Relational/Emotional Strength [x] Patient feels connected with others/family/visitors/staff [] Distress [] Loneliness/isolation [] Abandonment Spirituality of Patient [x] Person of Bryanna [x] Attends Quaker of their [place] [x] Believes in Prayer [x] Reads Bible or Gnosticism materials [] There are Spiritual issues to be addressed Ship Scraper Interventions [x] Prayer [x] Active listening [x] Non-anxious presence [x] Spiritual/emotional support [] Crisis/trauma care [] Spiritual counseling [] Bereavement support [] Provided bereavement packet [] Provided Bible/devotional materials [] Provided toy/stuffed animal, coloring book to patient or family member [] Provided Communion [] Anointing/[place] [] Salvation [x] Completed spiritual assessment [] Other: Impact on Illness or Injury [] Angry [] Fearful [] Anxious [] Often cries [] Exhaustion [] Unable to work [] Unable to attend protestant [] Unable to walk/stand [] Unable to read [] Unable to drive [] Unable to eat/drink [] Unable to sleep [] Unable to be with family [] Patient intubated [] Other: Summary Pt's son was present in room at time of visit. Pt lives alone but son lives nearby which she considers a blessing, allowing her to continue to live on her own. Expecting to be released home today. Unsure if she will have to undergo additional treatment. Time spent with patient 15m
[2020-12-10 11:39] VITALS: BP 116/64; PULSE 61; RESP 18; TEMP 36.8; O2SAT 98
--- NOTE | 2020-12-10 11:54 | P.DS_ITS ---
Discharge Providers Date of Admission: 12/09/20 14:05 Date of Discharge: December 10, 2020 Attending Provider at Admission: Surendra Walters MD Attending Provider at Discharge: Surendra Walters MD Primary Care Provider: Deshawn Marin MD Reason for Visit Reason for Visit: masectomy, lymph biopsy Hospital Course Hospital Course This is a 85 year-old female with invasive ductal carcinoma right breast who underwent right mastectomy with sentinel lymph node biopsy. Patient is admitted overnight for observation. At time of discharge her vital signs are stable, blood work was normal. Her pain is well controlled. Discharge Data Data Completed and Pending: Completed Studies During Hospitalization Category Date Time Status NM sentinel node inject [id number] Routi ne Nuc Med 12/09/20 08:11 Completed Pending at discharge Category Date Time Status Pathology: Surgic al [PTH] Routine Pth 12/09/20 14:00 Received Labs from last 24 hours 12/10/20 12/10/20 02:43 02:43 WBC 6.0 RBC 4.11 Hgb 11.4 L Hct 37.4 MCV 91.0 MCH 27.7 L MCHC 30.5 RDW 12.9 Plt Count 195 MPV 9.4 Neut % (Auto) 73.6 Lymph % (Auto) 14.0 Colbert % (Auto) 9.5 Eos % (Auto) 2.3 Baso % (Auto) 0.3 Neut # (Auto) 4.42 Lymph # (Auto) 0.8 Colbert # (Auto) 0.6 Eos # (Auto) 0.1 Baso # (Auto) 0.0 Nucleated RBC % (a uto) 0 Nucleated RBCs # 0.0 Sodium 137 Potassium 3.9 Chloride 101 Carbon Dioxide 29 Anion Gap 10.9 BUN 18 Creatinine 0.7 GFR Calculation Not Reportable Glucose 123 H Calculated Osmolal ity 287 Calcium 8.5 Vitals: Last Vital Signs Temp 98.2 F 12/10/20 11:39 Pulse 61 12/10/20 11:39 Resp 18 12/10/20 11:39 BP 116/64 12/10/20 11:39 Pulse Ox 98 12/10/20 11:39 Discharge Plan Discharge Patient Disposition: Home Condition: Stable Prescriptions: New Colace 100 mg capsule 100 mg PO BID Qty: 30 RF: 0 hydrocodone-acetaminophen 5-325 mg tablet 1 tab PO Q6H PRN (Reason: pain) Qty: 20 RF: 0 Zofran 4 mg tablet 4 mg PO Q6H PRN (Reason: nausea and vomiting) Qty: 20 RF: 0 Continued acetaminophen 500 mg capsule 500 mg PO Q6H PRN (Reason: Pain) RF: 0 levothyroxine 25 mcg capsule 25 mcg PO DAILY RF: 0 cyanocobalamin (vitamin B-12) [Vitamin B-12] 1,000 mcg tablet 1,000 mcg PO DAILY RF: 0 lisinopril-hydrochlorothiazide 20-12.5 mg tablet 1 tab PO DAILY RF: 0 travoprost [Travatan Z] 0.004 % drops 1 drp ophthalmic (eye) ONCE RF: 0 Discharge Orders: Discharge Order (Routine); Ordered 12/10/20 Ordered By: Surendra Walters Referrals: Surendra Walters MD [Physician] - 12/17/20 3:30 pm Patient Instructions: Hydrocodone/Acetaminophen (By mouth), Laxative, Stool Softeners (By mouth), Ondansetron (By mouth), Mastectomy (DC), Opioid Safety Activity Restrictions/Additional Instructions: Diet Advance to normal diet as tolerated, increase fluid intake as much as possible. Activity Avoid strenuous activity for 2 weeks but continue with daily activities including walking as tolerated. Do not lift more than 10 pounds for 2 weeks Return to work/school You can return to work/ school whenever you feel ready as long as you don?t have to lift more than 10 pounds at work. If you have paperwork that needs to be completed for time off from work, please contact my office Driving You can resume driving once you stop using narcotic pain medications, and transition to non-opioid pain medications like Tylenol, Motrin, Aleve, etc. Medications Pain Take opioid pain medications as prescribed and transition to non-opioid pain medications like Tylenol, Motrin, Aleve etc. over the next few days. The goal of the pain medications is to make the pain bearable and not to be pain free since you recently had surgery. Resume all home medications after surgery as per the medication reconciliation list Nausea Nausea is common after surgery, take nausea medications as needed and stay on a liquid bland diet until nausea resolves. Constipation The combination of surgery, anesthesia and pain medications can result in constipation. Take stool softeners as prescribed. If you do not have a bowel movement in 3 days, please take an nsoc-som-lqeklbj laxative like MiraLAX to add ress the constipation. Shower It is ok to shower but avoid getting the wound wet for 48 hours after surgery. Do not soak in bathtub, swimming pool or hot tub for 2 weeks. Wound care The glue applied to the incision will peel slowly over the next two weeks. The stitches used are dissolvable and will not need to be removed. Do not apply antibiotics or other medications on the incision Drain care Strip CODY drain 3 times a day. Monitor drain output and document every 24 hours. Call office once drain output is less than 30 cc in 24 hours Problems with the wound You can develop some redness around the incision from bruising after surgery. If there is increasing pain, redness, tenderness around the incision with or without drainage, please contact my office to rule out an infection. Sometimes the skin at the incisions can separate, resulting in reopening of the wound. Cover the wound with antibiotic cream and sterile dressings and contact my office. Contact physician Call the office at [phone] during office hours or go the Emergency Room after hours for - ?Fever to 100.4 or greater ?Shaking chills ?Pain that increases over time ?Redness, warmth, or pus draining from incision sites ?Persistent nausea or inability to take in liquids Discharge Attestations Time Spent in Discharge Care*: less than 30 min Quality Metrics Clinical Quality Measures During this hospital stay, did patient experience: None Coding Level of Care Code Acute [place] KYM GAYLE note
[2020-12-10 13:31] VITALS: BP 116/64; PULSE 61; RESP 18; TEMP 36.8; O2SAT 98
--- NOTE | 2020-12-10 13:33 | PC.NURSE ---
Reviewed discharge with patient and sister at this time. 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 Patient verbalized understanding of discharge instructions. Patient's sister returned a demonstration of how to empty patient's CODY drain. Patient is A&Ox3. Respirations even and non-labored on room air. IV removed intact. Patient tolerated well. Patient wheel chaired to private vehicle at this time.
== END 2020-12-10 13:16 | disposition home or self-care (01) ==
LOC: MEDSURG 14:06
PROVIDERS: Admitting Provider Surgery; PCP Family Medicine; Visit Provider Surgery
PROC: (CPT 19303; principal; 2020-12-09 12:50)
PROC: (CPT 19303; 2020-12-09 12:50)
DX: C50.911 Malignant neoplasm of unspecified site of right female breast (principal); I10 Essential (primary) hypertension; E03.9 Hypothyroidism, unspecified; E55.9 Vitamin D deficiency, unspecified; Z80.0 Family history of malignant neoplasm of digestive organs
CPT/HCPCS: 19303; 38525; 36415; 38792; 51702; 51798; 80048; 85025; 88305; 93005; 94664; A9541; G0378; J0690; J2405; J2704; J3010; J3490; J7030

== ENCOUNTER 2020-12-14 06:00 | Outpatient (RCR) | payer MEDICARE, SELFPAY | END 2021-01-13 23:59 | disposition home or self-care (01) | LOC: SPT 06:00 | PROVIDERS: PCP Family Medicine; Referring Provider Surgery; Visit Provider Surgery | DX: C50.911 Malignant neoplasm of unspecified site of right female breast (principal) | CPT/HCPCS: 97110 ==

== ENCOUNTER 2021-01-01 12:57 | Outpatient (CLI) | payer MEDICARE, SELFPAY ==
[2021-01-01 13:39] LABS: Basophils % 0.2 %; Eosinophils # 0.1 10^3/uL (0.0-0.8); Eosinophils % 2.3 %; Hemoglobin 12.3 g/dL (11.5-15.3); Lymphocytes # 0.9 10^3/uL (0.8-4.8); Lymphocytes % 15.3 %; Mean Corpuscular HGB Conc 31.5 g/dL (30.0-36.0); Mean Corpuscular Hemoglobin 28.7 pg (28.0-34.0); Mean Corpuscular Volume 91.1 fL (81-99); Mean Platelet Volume 9.1 fL (7.4-10.4); Monocytes # 0.5 10^3/uL (0.2-0.9); Monocytes % 8.8 %; Neutrophils # 4.14 10^3/uL (1.8-7.7); Nucleated Red Blood Cells % 0 %; Platelet Count 244 10^3/cmm (130-400); Red Blood Count 4.28 10^6/uL (4.1-5.3); Red Cell Distribution Width 13.2 % (12.1-15.1); White Blood Count 5.7 10^3/uL (4.0-10.0)
[2021-01-01 14:29] LABS: Alanine Aminotransferase 11 U/L (0-33); Albumin Level 4.3 g/dL (3.5-5.2); Alkaline Phosphatase 68 IU/L (35-105); Aspartate Amino Transferase 20 U/L (0-32); Blood Urea Nitrogen 29 mg/dL (8-23); Calcium 9.5 mg/dL (8.5-10.5); Carbon Dioxide 30 mmol/L (22-29); Chloride 97 mmol/L (98-107); Globulin 2.4 g/dL (1.3-4.6); Glucose 131 mg/dL (65-115); Osmolality Calculated 292 mOsm/kg (285-295); Sodium 137 mmol/L (136-145); Total Bilirubin 0.3 mg/dL (0.15-1.2); Total Protein 6.7 g/dL (6.6-8.7)
--- NOTE | 2021-01-01 16:17 | ONC FU_ITS ---
Dr. Duong follow up note Patient: Rhina Brewer Unit #: [id number]: 1935 Dicatated By: Allen Duong M.D.Date of Visit:January 01, 2021 Onc Med Follow-up/Prog Note History of Present Illness: Mrs. Rhina Brewer, 85 -year-old, female with long-standing history of alternating constipation and diarrhea , had CT scan of abdomen done in August 2016 showed thickening of the wall of cecum as well as 2.9 cm perineal soft tissue mass and noncalcified 7.6 mm pulmonary nodules in left lower lung subsequently underwent endoscopy on 10/20/2016 showed internal hemorrhoids and 5 mm sessile polyp removed from sigmoid colon and other 5 mm sessile polyp removed from transverse colon addresses was normal and final path report was adenomatous polyps. Then again she underwent follow-up is EGD colonoscopy on 06/01/2017 and it showed circumferential cecal mass and a biopsy was obtained it showed low-grade well to moderately differentiated infiltrating adenocarcinoma subsequently on 06/04/2017 she underwent laparoscopic right hemicolectomy with extracorporeal ileo colic stapled anastomosis and final pathology report came back low-grade infiltrating adenocarcinoma, 0 out of 16 lymph nodes positive. Patient tolerated surgery very well, Now being monitored Last colonoscopy was done on 09/13/2018, was unremarkable Follow-up CT scan of chest abdomen pelvis done on 04/18/2019 showed left greater than right noncalcified pulmonary nodules unchanged from the prior exam Largest nodule in the left lower lobe measuring 7.5 mm. The previously described right middle lobe peribronchial nodularity is stable to improved likely inflammatory No mediastinal or hilar lymphadenopathy no intrahepatic pathology noted mass in her right breast for which she underwent ultrasound-guided right breast biopsy on November 18, 2020 which showed moderately differentiated intraductal carcinoma, ER/MI positive HER-2/sonny negative. Subsequently underwent right simple mastectomy with sentinel lymph node biopsy on December 09, 2020 and final pathology report showed moderately differentiated invasive ductal carcinoma tumor size 1.5 cm, clear surgical margins, 0 out of 6 lymph nodes showed metastatic disease clinical stage I ( T1c, N0 MX) Came for follow-up, denies any specific complaint except soreness at right mastectomy site, she was recently seen by surgery and was informed wound is healing well. Patient denies any fever or chills denies any nausea or vomiting denies any diarrhea constipation also complaining of off and on pain in mid upper back, denies any trauma to her back denies any lower extremity weakness or numbness denies any urine or stool incontinence, patient is taking tramadol for his postsurgical pain and is helping. = Medications: Chlorpheniramine Maleate 1 Tablet (of 4 mg) Oral q 4 hours, Cholecalciferol 1 (59766 Units) Capsule Oral q 14 days, Latanoprost 1 drop(s) (of 0.005 %) Solution Ophthalmic daily, Levothyroxine Sodium 1 (25 mcg) Tablet Oral daily, Lisinopril-Hydrochlorothiazide 1 Tablet (of 20-12.5 mg) Oral daily, Vitamin B12 1 Tablet (of 1000 mg) Oral daily Allergies: Codeine and Related, OxyCODONE HCl, TraMADol HCl, and Vicodin. Review of Systems: Review of Systems is not available for this patient. Vital Signs: Performed on January 01, 2021 14:44 Height - 65.50 in Weight - 113.0 lbs BSA - 1.56 sq.m BMI - 18.52 Temperature - 97.9 F (LOW) Pulse - 67 /min Respiration - 18 /min BP - 127/60 mm(hg) O2 Sat - 98 % Pain - 0 Performance Status: 0 - Fully active, able to carry on all predisease activities without restrictions. (ECOG) Physical Examination: ENMT - No mouth sores, no thrush, no jaundice, Respiratory - Lungs are clear to auscultation, Cardiovascular - Regular rate and rhythm of heart, Abdomen - Soft, bowel sounds present, right simple mastectomy site shows no discharge or swelling, Extremities - No visible edema. Lab/Imaging: Most recent lab results are not available for this patient. Impression: 1Stage I (T1c, N0 MX) status post right breast simple mastectomy and right axillary sentinel lymph node biopsy done on December 09, 2020 final pathology confirmed 1.5 cm moderately differentiated invasive ductal carcinoma, 0 out of 6 lymph node positive for metastatic disease. ER/MI positive, HER-2/sonny negative Moderately differentiated intraductal carcinoma involving right breast per ultrasound-guided right breast biopsy done on November 11, 2020 final pathology report showed moderately differentiated intraductal carcinoma ofmixed type, grade 2, ER 98%, MI 90%, HER-2/sonny negative, Ki-67 25% 2 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 Low-grade well to moderately differentiated, invasion focally to muscularis propria into superficial serosal connective tissue. Tumor dimensions 6.3 x 3.2 cm T3 Margins clear 16 pericolonic lymph nodes were removed showed no metastasis . 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 due to carcinoma of cecum now on oral iron but noncompliant due to intolerance resolved CT scan of chest done on 08/31/2018 showed no significant change in previously noted bilateral pulmonary nodules and distal third esophageal wall thickening versus pseudo-thickening, Plan: Discussed with patient regarding her labs white blood count 5.7 hemoglobin 12.3 hematocrit 39 platelets 244,000 CMP within normal limits and her right breast mastectomy/sentinel lymph node biopsy report which confirmed T1c lesion and 0 of 6+ lymph nodes thus stage I, ER/MI positive HER-2/sonny negative Clinically, patient doing well, tolerated right simple mastectomy with sentinel lymph node biopsy well, now healing well,, at this point, will consider breast prognostic profiling with Oncotype DX score and in the meantime we will start her on Arimidex 1 mg p.o. daily for 5 years unless Oncotype DX score shows high risk, patient already on vitamin D and she was also advised to take calcium supplement, on the side effect possible benefits associated with aromatase inhibitor including but not limited to hot flashes, musculoskeletal discomfort/pain, osteoporosis, mood swings, generalized weakness and fatigue. We will give her prescription for 1 month, in the meantime we will have Oncotype DX score report available so she will return to clinic in 1 month for further discussion. As far as history of pulmonary nodules concerned, we will consider follow-up CT scan of chest upon return to clinic visit. Signed By: Allen Duong M.D. <<Signature on File>>
== END 2021-01-01 12:58 | disposition home or self-care (01) ==
PROVIDERS: PCP Family Medicine; Visit Provider Internal Medicine Hematology & Oncology
DX: C50.811 Malignant neoplasm of overlapping sites of right female breast (principal); Z17.0 Estrogen receptor positive status [ER+]; E55.9 Vitamin D deficiency, unspecified; E83.51 Hypocalcemia; D50.0 Iron deficiency anemia secondary to blood loss (chronic); Z85.038 Personal history of other malignant neoplasm of large intestine; Z79.899 Other long term (current) drug therapy; Z79.811 Long term (current) use of aromatase inhibitors
CPT/HCPCS: 80053; 85025; 99214

== ENCOUNTER 2021-02-07 11:22 | Outpatient (CLI) | payer MEDICARE, SELFPAY ==
--- NOTE | 2021-02-07 12:58 | ONC FU_ITS ---
Dr. Duong follow up note Patient: Rhina Brewer Unit #: [id number]: 1935 Dicatated By: Allen Duong M.D.Date of Visit:Feb 07, 2021 Onc Med Follow-up/Prog Note History of Present Illness: Mrs. Rhina Brewer, 85 -year-old, female with long-standing history of alternating constipation and diarrhea , had CT scan of abdomen done in August 2016 showed thickening of the wall of cecum as well as 2.9 cm perineal soft tissue mass and noncalcified 7.6 mm pulmonary nodules in left lower lung subsequently underwent endoscopy on 10/20/2016 showed internal hemorrhoids and 5 mm sessile polyp removed from sigmoid colon and other 5 mm sessile polyp removed from transverse colon addresses was normal and final path report was adenomatous polyps. Then again she underwent follow-up is EGD colonoscopy on 06/01/2017 and it showed circumferential cecal mass and a biopsy was obtained it showed low-grade well to moderately differentiated infiltrating adenocarcinoma subsequently on 06/04/2017 she underwent laparoscopic right hemicolectomy with extracorporeal ileo colic stapled anastomosis and final pathology report came back low-grade infiltrating adenocarcinoma, 0 out of 16 lymph nodes positive. Patient tolerated surgery very well, Now being monitored Last colonoscopy was done on 09/13/2018, was unremarkable Follow-up CT scan of chest abdomen pelvis done on 04/18/2019 showed left greater than right noncalcified pulmonary nodules unchanged from the prior exam Largest nodule in the left lower lobe measuring 7.5 mm. The previously described right middle lobe peribronchial nodularity is stable to improved likely inflammatory No mediastinal or hilar lymphadenopathy no intrahepatic pathology noted mass in her right breast for which she underwent ultrasound-guided right breast biopsy on November 18, 2020 which showed moderately differentiated intraductal carcinoma, ER/TN positive HER-2/sonny negative. Subsequently underwent right simple mastectomy with sentinel lymph node biopsy on December 09, 2020 and final pathology report showed moderately differentiated invasive ductal carcinoma tumor size 1.5 cm, clear surgical margins, 0 out of 6 lymph nodes showed metastatic disease clinical stage I ( T1c, N0 MX) Came for follow-up, denies any specific complaints except chronic mid upper back pain and right chest wall paresthesia/pain, she is status post right mastectomy, denies any lower extremity weakness or numbness denies any upper extremity weakness or numbness denies any shoulder pain denies any recent trauma to her upper back or chest wall but patient said after surgery to minimize risk of fluid accumulation in the right chest wall, the chest wrap was little too tight Pain is not bad when she is not moving but upper body movement, bending sometime aggravate it otherwise denies any fever or chills denies any nausea or vomiting denies any diarrhea constipation denies any hot flashes, tolerating Arimidex well. Patient said she is planning to move to [facility] to see her family and because of this discomfort and pain and mid back she is not sure, wants evaluation., Her Oncotype DX is still pending = Medications: Chlorpheniramine Maleate 1 Tablet (of 4 mg) Oral q 4 hours, Cholecalciferol 1 (70348 Units) Capsule Oral q 14 days, Latanoprost 1 drop(s) (of 0.005 %) Solution Ophthalmic daily, Levothyroxine Sodium 1 (25 mcg) Tablet Oral daily, Lisinopril-Hydrochlorothiazide 1 Tablet (of 20-12.5 mg) Oral daily, Vitamin B12 1 Tablet (of 1000 mg) Oral daily Allergies: Codeine and Related, OxyCODONE HCl, TraMADol HCl, and Vicodin. Review of Systems: Review of Systems is not available for this patient. Vital Signs: Performed on Feb 07, 2021 11:44 Height - 65.50 in Weight - 110.2 lbs (LOW) BSA - 1.54 sq.m BMI - 18.06 Temperature - 98.5 F Pulse - 67 /min Respiration - 18 /min BP - 165/80 mm(hg) (HIGH) O2 Sat - 97 % Pain - 5 Fatigue - 5 Performance Status: 1 - No physically strenuous activity, but ambulatory and able to carry out light or sedentary work (e.g. office work, light house work). (ECOG) Physical Examination: ENMT - No mouth sores, no thrush, no jaundice, Respiratory - Lungs are clear to auscultation No overlying skin changes in the mid upper back no focal tenderness, no overlying skin change in the right chest wall no focal tenderness or mass or swelling noted, Cardiovascular - Regular rate and rhythm of heart, Abdomen - Soft, bowel sounds present, Extremities - No visible edema. Lab/Imaging: Most recent lab results are not available for this patient. Impression: 1Stage I (T1c, N0 MX) status post right breast simple mastectomy and right axillary sentinel lymph node biopsy done on December 09, 2020 final pathology confirmed 1.5 cm moderately differentiated invasive ductal carcinoma, 0 out of 6 lymph node positive for metastatic disease. ER/TN positive, HER-2/sonny negative Moderately differentiated intraductal carcinoma involving right breast per ultrasound-guided right breast biopsy done on November 11, 2020 final pathology report showed moderately differentiated intraductal carcinoma ofmixed type, grade 2, ER 98%, TN 90%, HER-2/sonny negative, Ki-67 25% 2 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 Low-grade well to moderately differentiated, invasion focally to muscularis propria into superficial serosal connective tissue. Tumor dimensions 6.3 x 3.2 cm T3 Margins clear 16 pericolonic lymph nodes were removed showed no metastasis . 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 due to carcinoma of cecum now on oral iron but noncompliant due to intolerance resolved CT scan of chest done on 08/31/2018 showed no significant change in previously noted bilateral pulmonary nodules and distal third esophageal wall thickening versus pseudo-thickening, Plan: Discussed with patient regarding her concern and safety regarding traveling to [facility] which is about [address], patient has history of chronic back pain, in the past she underwent lower back surgery, now with off and on upper back pain/discomfort but no associated neurological symptoms, also complaining of pain/paresthesia in right chest wall since right modified mastectomy for early stage breast cancer. patient has not seen Dr. Walters in recent past. Etiology of her chronic mid upper back pain is unclear, could be musculoskeletal, less likely due to metastatic disease, we will refer her to orthopedics for evaluation, as patient used to see orthopedics in the past for chronic back pain. And she was also advised that right chest wall pain could be due to postop paresthesia. And advised to see Dr. Walters for evaluation, if there is no improvement or worsening, will consider bone scan. Patient will continue with Arimidex 1 mg p.o. daily along with vitamin D and calcium and then return to clinic in 3 months with CBC CMP,And follow-up CT scan of chest, patient was advised in case there is a worsening of symptoms she need to call us. Signed By: Allen Duong M.D. <<Signature on File>>
== END 2021-02-07 11:23 | disposition home or self-care (01) ==
LOC: ONCMED 11:25
PROVIDERS: PCP Family Medicine; Visit Provider Internal Medicine Hematology & Oncology
DX: C50.811 Malignant neoplasm of overlapping sites of right female breast (principal); C78.5 Secondary malignant neoplasm of large intestine and rectum; G89.29 Other chronic pain; M54.6 Pain in thoracic spine; D50.0 Iron deficiency anemia secondary to blood loss (chronic)
CPT/HCPCS: 99214

== ENCOUNTER 2021-04-29 08:58 | Outpatient (CLI) | payer MEDICARE, SELFPAY ==
[2021-04-29 09:47] LABS: Basophils % 0.2 %; Eosinophils # 0.2 10^3/uL (0.0-0.8); Eosinophils % 3.9 %; Hemoglobin 12.8 g/dL (11.5-15.3); Lymphocytes # 0.9 10^3/uL (0.8-4.8); Lymphocytes % 19.4 %; Mean Corpuscular HGB Conc 31.2 g/dL (30.0-36.0); Mean Corpuscular Hemoglobin 28.1 pg (28.0-34.0); Mean Corpuscular Volume 89.9 fl (81-99); Monocytes # 0.4 10^3/uL (0.2-0.9); Monocytes % 8.2 %; Neutrophils # 3.16 10^3/uL (1.8-7.7); Neutrophils % 67.9 %; Nucleated Red Blood Cells % 0 %; Platelet Count 244 10^3/cmm (130-400); Red Blood Count 4.56 10^6/uL (4.1-5.3); Red Cell Distribution Width 13.4 % (12.1-15.1); White Blood Count 4.7 10^3/uL (4.0-10.0)
[2021-04-29 10:24] LABS: Carcinoembryonic Antigen 3.2 ng/mL (0.0-4.7)
[2021-04-29 10:35] LABS: Alanine Aminotransferase 19 U/L (0-33); Albumin Level 4.2 g/dL (3.5-5.2); Alkaline Phosphatase 83 IU/L (35-105); Anion Gap 15.2 (5-19); Aspartate Amino Transferase 28 U/L (0-32); Blood Urea Nitrogen 28 mg/dL (8-23); Calcium 9.1 mg/dL (8.5-10.5); Carbon Dioxide 26 mmol/L (22-29); Chloride 98 mmol/L (98-107); Globulin 2.4 g/dL (1.3-4.6); Glucose 103 mg/dL (65-115); Osmolality Calculated 286 mOsm/kg (285-295); Potassium 4.2 mmol/L (3.5-5.1); Sodium 135 mmol/L (136-145); Total Bilirubin 0.6 mg/dL (0.15-1.2); Total Protein 6.6 g/dL (6.6-8.7)
--- NOTE | 2021-04-29 17:16 | ONC FU_ITS ---
Dr. Duong follow up note Patient: Rhina Brewer Unit #: [id number]: 1935 Dicatated By: Allen Duong M.D.Date of Visit:Apr 29, 2021 Onc Med Follow-up/Prog Note History of Present Illness: Mrs. Rhina Brewer, 85 -year-old, female with long-standing history of alternating constipation and diarrhea , had CT scan of abdomen done in August 2016 showed thickening of the wall of cecum as well as 2.9 cm perineal soft tissue mass and noncalcified 7.6 mm pulmonary nodules in left lower lung subsequently underwent endoscopy on 10/20/2016 showed internal hemorrhoids and 5 mm sessile polyp removed from sigmoid colon and other 5 mm sessile polyp removed from transverse colon addresses was normal and final path report was adenomatous polyps. Then again she underwent follow-up is EGD colonoscopy on 06/01/2017 and it showed circumferential cecal mass and a biopsy was obtained it showed low-grade well to moderately differentiated infiltrating adenocarcinoma subsequently on 06/04/2017 she underwent laparoscopic right hemicolectomy with extracorporeal ileo colic stapled anastomosis and final pathology report came back low-grade infiltrating adenocarcinoma, 0 out of 16 lymph nodes positive. Patient tolerated surgery very well, Now being monitored Last colonoscopy was done on 09/13/2018, was unremarkable Follow-up CT scan of chest abdomen pelvis done on 04/18/2019 showed left greater than right noncalcified pulmonary nodules unchanged from the prior exam Largest nodule in the left lower lobe measuring 7.5 mm. The previously described right middle lobe peribronchial nodularity is stable to improved likely inflammatory No mediastinal or hilar lymphadenopathy no intrahepatic pathology noted mass in her right breast for which she underwent ultrasound-guided right breast biopsy on November 18, 2020 which showed moderately differentiated intraductal carcinoma, ER/CO positive HER-2/sonny negative. Subsequently underwent right simple mastectomy with sentinel lymph node biopsy on December 09, 2020 and final pathology report showed moderately differentiated invasive ductal carcinoma tumor size 1.5 cm, clear surgical margins, 0 out of 6 lymph nodes showed metastatic disease clinical stage I ( T1c, N0 MX) Came for follow-up, denies any specific complaints, no fever chills, no nausea or vomiting, no diarrhea constipation, no melena or hematochezia, no hemoptysis or hematemesis, no new bony pains, patient was supposed to get CT scan of the chest as a part of follow-up for multiple pulmonary nodules but patient is going back and forth to [place] to spend time with her family so could not get it done otherwise tolerating Arimidex well = Medications: Chlorpheniramine Maleate 1 Tablet (of 4 mg) Oral q 4 hours, Cholecalciferol 1 (53683 Units) Capsule Oral q 14 days, Latanoprost 1 drop(s) (of 0.005 %) Solution Ophthalmic daily, Levothyroxine Sodium 1 (25 mcg) Tablet Oral daily, Lisinopril-Hydrochlorothiazide 1 Tablet (of 20-12.5 mg) Oral daily, Vitamin B12 1 Tablet (of 1000 mg) Oral daily Allergies: Codeine and Related, OxyCODONE HCl, TraMADol HCl, and Vicodin. Review of Systems: Review of Systems is not available for this patient. Vital Signs: Performed on Apr 29, 2021 11:00 Height - 65.50 in Weight - 118.8 lbs (HIGH) BSA - 1.59 sq.m BMI - 19.47 Temperature - 97.4 F (LOW) Pulse - 67 /min Respiration - 18 /min BP - 164/74 mm(hg) (HIGH) O2 Sat - 98 % Pain - 0 Performance Status: 0 - Fully active, able to carry on all predisease activities without restrictions. (ECOG) Physical Examination: ENMT - No mouth sores, no thrush, no jaundice, Respiratory - Lungs are clear to auscultation, Cardiovascular - Regular rate and rhythm of heart, Abdomen - Soft, bowel sounds present, Extremities - No visible edema. Lab/Imaging: Most recent lab results are not available for this patient. Impression: 1Stage I (T1c, N0 MX) status post right breast simple mastectomy and right axillary sentinel lymph node biopsy done on December 09, 2020 final pathology confirmed 1.5 cm moderately differentiated invasive ductal carcinoma, 0 out of 6 lymph node positive for metastatic disease. ER/CO positive, HER-2/sonny negative Moderately differentiated intraductal carcinoma involving right breast per ultrasound-guided right breast biopsy done on November 11, 2020 final pathology report showed moderately differentiated intraductal carcinoma ofmixed type, grade 2, ER 98%, CO 90%, HER-2/sonny negative, Ki-67 25% 2 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 Low-grade well to moderately differentiated, invasion focally to muscularis propria into superficial serosal connective tissue. Tumor dimensions 6.3 x 3.2 cm T3 Margins clear 16 pericolonic lymph nodes were removed showed no metastasis . 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 due to carcinoma of cecum now on oral iron but noncompliant due to intolerance resolved CT scan of chest done on 08/31/2018 showed no significant change in previously noted bilateral pulmonary nodules and distal third esophageal wall thickening versus pseudo-thickening, Plan: Discussed with patient regarding her labs white blood count 4.7 hemoglobin 12.8 hematocrit 41 platelets 244,000 CMP within normal limits CEA 3.2 Clinically, patient doing well with no new signs symptom suggestive of recurrence of disease, as far as colon cancer is concerned, her lab work-up is within normal range and her CEA is within normal range, will continue to monitor As far as breast cancer is concerned, patient is on Arimidex/vitamin D and calcium tolerating well will continue with same and then return to clinic in 6 months and we will also consider follow-up CT scan of chest regarding her history of pulmonary nodules but patient wants to get it done in [place] as she is going back with her daughter to be with her family. Signed By: Allen Duong M.D. <<Signature on File>>
== END 2021-04-29 08:59 | disposition home or self-care (01) ==
LOC: ONCMED 09:03
PROVIDERS: PCP Family Medicine; Visit Provider Internal Medicine Hematology & Oncology
DX: C50.911 Malignant neoplasm of unspecified site of right female breast (principal); Z17.0 Estrogen receptor positive status [ER+]; D50.9 Iron deficiency anemia, unspecified; Z85.038 Personal history of other malignant neoplasm of large intestine; Z79.811 Long term (current) use of aromatase inhibitors; Z79.899 Other long term (current) drug therapy
CPT/HCPCS: 36415; 80053; 82378; 85025; 99214

== ENCOUNTER 2021-12-29 14:29 | Outpatient (CLI) | payer MEDICARE, SELFPAY ==
[2021-12-29 15:37] LABS: Thyroid Stimulating Hormone 2.82 uIU/mL (0.27-4.20)
[2021-12-30 15:13] LABS: T3 Total 83 ng/dL (76-181)
[2021-12-31 02:18] LABS: Triiodothyronine Uptake 28 % (22-35)
[2021-12-31 03:57] LABS: T4 Total 7.7 mcg/dL (5.1-11.9)
[2022-01-03 22:57] LABS: T3 Reverse LC/MS/MS 20 ng/dL (8-25)
== END 2021-12-29 14:30 | disposition home or self-care (01) ==
PROVIDERS: PCP Family Medicine; Visit Provider Family Medicine
DX: E07.9 Disorder of thyroid, unspecified (principal); I10 Essential (primary) hypertension
CPT/HCPCS: 84436; 84443; 84479; 84480; 84482

== ENCOUNTER 2022-02-18 12:30 | Oncology outpatient (recurring) (ONCR) | payer MEDICARE, SELFPAY ==
--- NOTE | 2022-02-13 14:43 | CTR_ITS ---
PROCEDURE INFORMATION: Exam: CT Chest With Contrast; Diagnostic Exam date and time: 02/13/2022 3:36 PM Age: 86 years old Clinical indication: Condition or disease; Other: Breast cancer, colon cancer; Primary cancer: Breast, colon; Follow-up oncological assessment; Prior surgery; Surgery type: RT breast; Additional info: Malignant neoplasm of ascending colon TECHNIQUE: Imaging protocol: Diagnostic computed tomography of the chest with contrast. Radiation optimization: All CT scans at this facility use at least one of these dose optimization techniques: automated exposure control; mA and/or kV adjustment per patient size (includes targeted exams where dose is matched to clinical indication); or iterative reconstruction. Contrast material: VISIPAQUE; Contrast volume: 50 ml; Contrast route: INTRAVENOUS (IV); COMPARISON: [place] [id number] 01/11/2020 2:40 PM RADIATION DOSE METRICS: Total DLP (mGy-cm): 536.32 FINDINGS: Lungs: Lateral left lower lobe nodular density measuring 2 mm, series 5, image 45, versus 6-7 mm previously. Posterolateral nodule measuring 3-4 mm at the superior aspect of left lower lobe, image 36, unchanged. Subpleural anteromedial left upper lobe density measuring 1-2 mm, image 25, unchanged. No acute lung consolidation or ground-glass opacity. Pleural spaces: Unremarkable. No pneumothorax. No pleural effusion. Heart: Normal heart size with coronary calcification. Lymph nodes: No enlarged lymph nodes. Vasculature: Unremarkable. No aortic aneurysm. Liver: Calcified hepatic granulomas. Bones/joints: Osteopenia. Multilevel vertebral disc degeneration and endplate osteophytes. No acute osseous findings otherwise. Soft tissues: No acute findings. Probable prior right mastectomy. CT/CT chest w con* [id number] IMPRESSION: 1. Comparison CT 01/11/2020. Multiple tiny pulmonary nodules, most are stable in size and are most likely benign. The largest in the left lower lobe now measures 2 mm, versus 6-7 mm previously. For patients at low risk (minimal or absent history of smoking and of other known risk factors), no routine follow-up is indicated. For patients at high risk (history of smoking or of other known risk factors), consider optional CT Chest at 12 months. (Reference: Octaviano) 2. No enlarged adenopathy or other acute thoracic findings. REFERENCES: Octaviano Reyes et al. Guidelines for Management of Incidental Pulmonary Nodules Detected on CT Images: From the Fleischner Society 2017. Radiology. 2017;284(1):228-243.
[2022-02-13 15:32] LABS: Blood Urea Nitrogen 31 mg/dL (8-23)
[2022-02-13] MEDS: iodixanol 320 mg/mL 100mL Btl IV (15:47)
[2022-02-18 11:47] LABS: Eosinophils # 0.1 10^3/uL (0.0-0.8); Eosinophils % 1.7 %; Hematocrit 37.6 % (37.0-47.0); Hemoglobin 12.2 g/dL (11.5-15.3); Lymphocytes # 1.1 10^3/uL (0.8-4.8); Lymphocytes % 22.4 %; Mean Corpuscular HGB Conc 32.4 g/dL (30.0-36.0); Mean Corpuscular Volume 86.4 fl (81-99); Mean Platelet Volume 9.2 fL (7.4-10.4); Monocytes # 0.4 10^3/uL (0.2-0.9); Monocytes % 8.1 %; Neutrophils # 3.26 10^3/uL (1.8-7.7); Neutrophils % 67.6 %; Nucleated Red Blood Cells % 0 %; Platelet Count 220 10^3/cmm (130-400); Red Blood Count 4.35 10^6/uL (4.1-5.3); Red Cell Distribution Width 12.8 % (12.1-15.1); White Blood Count 4.8 10^3/uL (4.0-10.0)
[2022-02-18 12:13] LABS: Alanine Aminotransferase 15 U/L (0-33); Albumin Level 4.5 g/dL (3.5-5.2); Alkaline Phosphatase 73 IU/L (35-105); Aspartate Amino Transferase 25 U/L (0-32); Blood Urea Nitrogen 27 mg/dL (8-23); Calcium 9.9 mg/dL (8.5-10.5); Carbon Dioxide 25 mmol/L (22-29); Chloride 103 mmol/L (98-107); Globulin 2.4 g/dL (1.3-4.6); Glucose 102 mg/dL (65-115); Osmolality Calculated 295 mOsm/kg (285-295); Sodium 140 mmol/L (136-145); Total Bilirubin 0.6 mg/dL (0.15-1.2); Total Protein 6.9 g/dL (6.6-8.7)
== END 2022-03-15 23:59 | disposition home or self-care (01) ==
PROVIDERS: PCP Family Medicine; Visit Provider Internal Medicine Hematology & Oncology
DX: C50.911 Malignant neoplasm of unspecified site of right female breast (principal); Z17.0 Estrogen receptor positive status [ER+]; C18.0 Malignant neoplasm of cecum; R91.8 Other nonspecific abnormal finding of lung field
CPT/HCPCS: 71260; 80053; 82565; 84520; 85025; 99214; Q9967

== ENCOUNTER 2022-05-14 12:23 | Outpatient (CLI) | payer MEDICARE, SELFPAY ==
--- NOTE | 2022-05-14 12:15 | CT_ITS ---
WS: [id number] CT HEAD NONCONTRAST HISTORY: Chronic Headaches, worsening. TECHNIQUE: Contiguous axial imaging performed through the brain in 2.5 mm imaging. Bone and soft tiss ue windows. Sagittal and coronal reformats reviewed. All CT scans at [facility] use at least one of these dose optimization techniques: automated exposure control; mA and/or kV adjustment per pa tient size (includes targeted exams where dose is matched to clinical indication); or iterative recon struction. DLP: 1034.58 mGy.cm COMPARISON: 10/01/2018 No acute intracranial hemorrhage, midline shift or mass effect. Moderate atrophy with severe bilateral small vessel ischemic disease. Small lacunar infarct in the LE FT thalamus. Small bilateral lacunar infarcts in the basal ganglia and insular ribbons. Moderate prog ression of ischemic disease since 10/01/2018. Ventricles: Ventricles are mildly prominent on the basis of atrophy. No inferior displacement of the cerebellar tonsils. Paranasal sinuses: Mild mucoperiosteal thickening within the ethmoid air cells. Mastoid air cells: Well pneumatized. Calvarium and scalp: Skull is intact with no soft tissue edema or swelling. CT/CT head wo con* [id number] IMPRESSION: 1. No acute intracranial hemorrhage or edema. 2. Moderate atrophy with severe small vessel ischemic disease. Small vessel is chemic disease has progressed since 10/01/2018.
== END 2022-05-14 12:24 | disposition home or self-care (01) ==
LOC: RAD 12:23
PROVIDERS: PCP Family Medicine; Visit Provider Family Medicine
DX: R51.9 Headache, unspecified (principal); G89.29 Other chronic pain; I67.82 Cerebral ischemia; G31.9 Degenerative disease of nervous system, unspecified
CPT/HCPCS: 70450

== ENCOUNTER 2022-08-28 09:30 | Oncology outpatient (recurring) (ONCR) | payer MEDICARE, SELFPAY ==
--- NOTE | 2022-08-28 09:57 | MM_ITS ---
WS: [id number] DIAGNOSTIC LEFT DIGITAL MAMMOGRAPHY WITH CAD. HISTORY: HX OF BREAST CA COMPARISON: 11/06/2020, 01/03/2015 Technique: CC, MLO and ML views. Breast composition: There are scattered areas of fibroglandular density. No suspicious mass or calci fication. No distortion. Benign calcifications. MM/[place] [id number] IMPRESSION: BI-RADS: 2-Benign FOLLOW UP: 1 Year Follow-up
== END 2022-09-15 23:59 | disposition home or self-care (01) ==
LOC: RAD 08-29 → ONCMED 09-16 12:12
PROVIDERS: PCP Family Medicine; Visit Provider Internal Medicine Hematology & Oncology
DX: Z85.3 Personal history of malignant neoplasm of breast
CPT/HCPCS: 36415; 77066; 80053; 82378; 85025; 99214

== ENCOUNTER → 2022-09-03 08:06 | Outpatient (BNVA) | payer MEDICARE, SELFPAY | PROVIDERS: PCP Family Medicine; Visit Provider Podiatrist Foot & Ankle Surgery | DX: I73.9 Peripheral vascular disease, unspecified (principal); L60.3 Nail dystrophy | CPT/HCPCS: 11721; 99203 ==

== ENCOUNTER 2022-09-22 19:21 | Outpatient (CLI) | payer MEDICARE, SELFPAY ==
[2022-09-22 19:48] LABS: Add Urine Culture? No; Add Urine Microscopic? YES; Bilirubin Urine Neg (Negative); Blood Urine Neg (Negative); Glucose Urine UA Norm (Normal); Ketones Urine Negative (Negative); Leukocyte Esterase Urine Trace (Negative); Nitrate Urine Negative (Negative); Protein Urine Neg (Negative); Squamous Epithelial Cell Urine RARE /hpf (0-5); Urine Appearance Clear (CLEAR); Urine Color Yellow (Yellow); Urobilinogen Urine Neg (Negative); WBC Urine 0-4 /hpf (0-5); pH Urine 5 (5-7)
== END 2022-09-22 19:22 | disposition home or self-care (01) ==
LOC: LAB 19:25
PROVIDERS: PCP Family Medicine; Visit Provider Family Medicine
DX: Z01.89 Encounter for other specified special examinations (principal)
CPT/HCPCS: 81001; 87086

== ENCOUNTER → 2023-04-06 13:00 | Outpatient (BNVA) | payer MEDICARE, SELFPAY | PROVIDERS: PCP Family Medicine; Visit Provider Podiatrist Foot & Ankle Surgery | DX: B35.1 Tinea unguium (principal); L84 Corns and callosities; M20.41 Other hammer toe(s) (acquired), right foot; M20.42 Other hammer toe(s) (acquired), left foot; M79.671 Pain in right foot; M79.672 Pain in left foot | CPT/HCPCS: 11055; 11721; 99204 ==

== ENCOUNTER 2023-04-27 12:08 | Oncology outpatient (recurring) (ONCR) | payer MEDICARE, SELFPAY ==
[2023-04-27 13:19] LABS: Basophils % 0.2 %; Eosinophils # 0.1 10^3/uL (0.0-0.8); Hematocrit 38.8 % (36-47); Lymphocytes # 1.1 10^3/uL (0.8-4.8); Lymphocytes % 24.1 %; Mean Corpuscular HGB Conc 31.4 g/dL (30-55); Mean Corpuscular Hemoglobin 28.7 pg (27-33); Mean Corpuscular Volume 91.3 fl (85-98); Mean Platelet Volume 8.9 fL (7.4-10.4); Monocytes # 0.3 10^3/uL (0.2-0.9); Monocytes % 6.8 %; Neutrophils # 3.08 10^3/uL (1.8-7.7); Neutrophils % 65.7 %; Nucleated Red Blood Cells % 0 %; Platelet Count 196 10^3/cmm (157-399); Red Blood Count 4.25 10^6/uL (3.85-5.65); Red Cell Distribution Width 12.9 % (12.1-15.1); White Blood Count 4.69 10^3/uL (3.29-11.43)
[2023-04-27 13:29] LABS: Alanine Aminotransferase 12 U/L (0-33); Albumin Level 4.5 g/dL (3.5-5.2); Alkaline Phosphatase 67 U/L (35-105); Anion Gap 13.3 (5-19); Aspartate Amino Transferase 21 U/L (0-32); Blood Urea Nitrogen 39 mg/dL (8-23); Calcium 9.4 mg/dL (8.5-10.5); Carbon Dioxide 27 mmol/L (22-29); Chloride 106 mmol/L (98-107); Globulin 2.2 g/dL (1.3-4.6); Glucose 100 mg/dL (65-115); Osmolality Calculated 303 mOsm/kg (285-295); Potassium 4.3 mmol/L (3.5-5.1); Sodium 142 mmol/L (136-145); Total Bilirubin 0.2 mg/dL (0.15-1.2); Total Protein 6.7 g/dL (6.6-8.7)
== END 2023-05-15 23:59 | disposition home or self-care (01) ==
PROVIDERS: PCP Family Medicine; Visit Provider Internal Medicine Medical Oncology
DX: C50.811 Malignant neoplasm of overlapping sites of right female breast (principal); C18.0 Malignant neoplasm of cecum; R91.1 Solitary pulmonary nodule; Z17.0 Estrogen receptor positive status [ER+]; F03.90 Unspecified dementia, unspecified severity, without behavioral disturbance, psychotic disturbance, mood disturbance, and anxiety
CPT/HCPCS: 36415; 80053; 85025; 99214

== ENCOUNTER 2023-07-11 06:38 | Inpatient (IN) | payer MEDICARE, SELFPAY ==
[2023-07-11] VITALS (15 sets, daily range): BP systolic 113–164; BP diastolic 57–76; PULSE 58–86; RESP 14–22; TEMP 36.3–37.1; O2SAT 95–98; BMI 23.3
--- NOTE | 2023-07-11 | XR_ITS ---
WS: [id number] C-ARM RADIOGRAPHS LEFT HIP; 3 IMAGES HISTORY: OR PICS COMPARISON: 07/11/2023 Intraoperative imaging during ORIF of LEFT intertrochanteric hip fracture. Hardware in good position and alignment. IMPRESSION: 1. Intraoperative imaging during LEFT hip ORIF. 2. Limited by technique.
--- NOTE | 2023-07-11 06:55 | CTR_ITS ---
PROCEDURE INFORMATION: Exam: CT Head Without Contrast Exam date and time: 07/11/2023 7:16 AM Age: 87 years old Clinical indication: Injury or trauma; Fall; Blunt trauma (contusions or hematomas); With loss of consciousness; Loss of consciousness for 30 minutes or less TECHNIQUE: Imaging protocol: Computed tomography of the head without contrast. Radiation optimization: All CT scans at this facility use at least one of these dose optimization techniques: automated exposure control; mA and/or kV adjustment per patient size (includes targeted exams where dose is matched to clinical indication); or iterative reconstruction. REPORTING DATA: Count of CT and Cardiac NM exams in prior 12 months: This patient has received 0 known CTs and 0 known cardiac nuclear medicine studies in the 12 months prior to the current study. COMPARISON: CT head wo con* [id number] 05/14/2022 12:32 PM RADIATION DOSE METRICS: Total DLP (mGy-cm): 1052.38 FINDINGS: Brain: There is mild to moderate small vessel disease. There is no evidence of acute parenchymal hemorrhage, extra-axial collection, or acute infarction. There is no mass effect, midline shift, or downward herniation. Cerebral ventricles: No ventriculomegaly. Paranasal sinuses: There is mild paranasal sinus disease. Mastoid air cells: There is left mastoid effusion again seen. Bones/joints: Unremarkable. No acute fracture. Soft tissues: Unremarkable. CT/CT head wo con* [id number] IMPRESSION: Sccc-bi-foazapfr small vessel disease. No evidence of acute intracranial process.
--- NOTE | 2023-07-11 06:55 | XRR_ITS ---
PROCEDURE INFORMATION: Exam: XR Left Shoulder Exam date and time: 07/11/2023 7:21 AM Age: 87 years old Clinical indication: Injury or trauma; Fall; Blunt trauma (contusions or hematomas); Shoulder and arm, upper; Left TECHNIQUE: Imaging protocol: Radiologic exam of the left shoulder. Views: 2 or more views. COMPARISON: CT chest w con* [id number] 02/13/2022 3:36 PM FINDINGS: Bones/joints: There is a displaced humeral neck fracture identified. Soft tissues: Normal. XR/XR shoulder LT min 2V* [id number] IMPRESSION: Displaced left humeral neck fracture.
--- NOTE | 2023-07-11 06:55 | XRR_ITS ---
PROCEDURE INFORMATION: Exam: XR Bilateral Hips Exam date and time: 07/11/2023 7:24 AM Age: 87 years old Clinical indication: Injury or trauma; Fall; Blunt trauma (contusions or hematomas); Bilateral; Hip TECHNIQUE: Imaging protocol: Radiologic exam of the bilateral hips. Views: 2 views of hips with pelvis when performed. COMPARISON: [place] [id number] 01/11/2020 2:40 PM FINDINGS: Bones/joints: There is an acute intertrochanteric left hip fracture. There is mild bilateral hip osteoarthritis. There is osteopenia present. Soft tissues: Unremarkable. XR/XR hip BI 3-4V wo/w pel [id number] IMPRESSION: Acute left hip intratrochanteric fracture.
--- NOTE | 2023-07-11 06:58 | W.ED.FALL ---
HPI - Fall General: Chief Complaint: Fall Stated Complaint: FALL Time Seen by Provider: 07/11/23 06:41 History of Present Illness: 87-year-old female who presents to the emergency department via EMS from her [facility] secondary to reported fall sometime between arrival here at 4 AM this morning she had an unwitnessed fall she is not on anticoagulation at present she does have a 2 cm superficial laceration to the left upper supraorbital region she does complain of lower back pain left hip pain left shoulder pain. Was unknown if there is loss of consciousness. The patient does have a history of dementia. She does appear to be awake alert and oriented at present. She states she does have pain to her left hip area. She is unable to quantify it. Review of Systems General: Reports: 10 or more systems reviewed and unremarkable except in HPI and below Musc: Reports: back pain, extremity pain and joint pain Skin/Breast: Reports: other (Laceration to the left supraorbital region) [facility] PFSH: Medical History Adenocarcinoma of cecum Breast cancer, right History of colon cancer Hypertension Hypothyroidism Pulmonary nodules Vitamin D deficiency Surgical History History of appendectomy History of back surgery 2x History of bilateral cataract extraction History of cholecystectomy History of colon resection History of colonoscopy History of hysterectomy S/P right mastectomy (12/09/20) Family History Other Cancer Dementia Diabetes Hyperlipidemia Hypertension Stroke Denies family history of CAD (coronary artery disease) Clotting disorder Psychiatric illness Chronic kidney disease (CKD) Suicide Anesthesia complication Bleeding disorder Lung disease Social History Smoking and tobacco/nicotine status: never used tobacco/nicotine Alcohol intake: never Physical Exam Narrative: EXAM NARRATIVE: Constitutional: the patient appears well nourished and with normal development. Vital signs reviewed as documented. HENMT: Normocephalic, 2 cm laceration to the left supraorbital region. External ears with normal appearance without drainage. Nose without drainage, normal appearance. Mucus membranes moist. Neck is supple, No jugular venous distension, trachea is midline, no appreciable carotid bruits. No lymphadenopathy. No meningeal signs. Flexion, extension and lateral rotation is without pain. Eyes: Pupils are equal, round, reactive to light and accommodation. No scleral icterus. Extra-ocular movement are intact. Thorax is symmetrical and with equal rise and fall with respirations. Resp: Lungs are clear to auscultation. No wheezes, rales, crackles or ronchi at present. Cardio: Regular rate and rhythm. Positive S1, S2. No appreciable murmurs, rubs or gallops. GI: Abdominal exam reveals normal bowel sounds to all quadrants. No organomegaly. No obvious palpable masses noted. No hepatomegally appreciated. Soft, nontender to palpation. Extremity: Extremities are non-edematous and both femoral and pedal pulses are 2+ and equal bilaterally. Moves all extremities--pain to palpation to left hip and left proximal humerus , sensation in all extremities. Neuro: Alert and oriented x4, person, place, time and situation. Cranial nerves II through XII are grossly intact, there is no focal neurological deficits that I can appreciate at present. Motor strength in the upper and lower extremities are equal and bilateral 5/5. Psych: Cooperative, calm, normal thought process, appropriate judgment. Skin: No lesions, rashes. No gross abnormalities noted. superficiallaceration to left lateral supraorbital area Back: Symmetrical, no obvious deformity, No CVA tenderness Course Vital Signs: Vital signs: Vital Signs Temperature 97.7 F 07/11/23 06:38 Pulse Rate 58 L 07/11/23 06:52 Respiratory Rate 22 H 07/11/23 06:52 Blood Pressure 139/61 07/11/23 06:52 Pulse Oximetry 96 07/11/23 06:52 Oxygen Delivery Me thod Room Air 07/11/23 06:52 MDM - Fall Medical Decision Making Will obtain a CT scan of her head, plain film of her pelvis bilaterally and her left shoulder. Medical Records I reviewed the patient's medical records. Lab Data Radiology Impressions Head CT 07/11/23 06:55 IMPRESSION: [id number]-gv-[id number] small vessel disease. No evidence of acute intracranial process. Hip/Pelvis X-Ray 07/11/23 06:55 IMPRESSION: Acute left hip intratrochanteric fracture. Shoulder X-Ray 07/11/23 06:55 IMPRESSION: Displaced left humeral neck fracture. Chest X-Ray 07/11/23 07:31 IMPRESSION: No acute pulmonary process. All radiology interpretation(s) finalized by discharge Discharge Plan Discharge Patient Disposition: Admitted As Inpatient Clinical Impression: Accidental fall, Contusion of face, scalp and neck, Closed left femoral fracture, Closed left humeral fracture Condition: Stable Prescriptions: No Action acetaminophen 500 mg capsule 500 mg PO Q6H PRN (Reason: Pain) lisinopril-hydrochlorothiazide 20-12.5 mg tablet 1 tab PO DAILY cyanocobalamin (vitamin B-12) [Vitamin B-12] 1,000 mcg tablet 2,500 mcg PO DAILY Colace 100 mg capsule 100 mg PO BID PRN (Reason: constipation) anastrozole 1 mg tablet 1 mg PO DAILY latanoprost 0.005 % drops 1 drp ophthalmic (eye) .HS magnesium oxide 250 mg magnesium tablet 250 mg PO DAILY meloxicam 15 mg tablet 15 mg PO DAILY multivitamin Tablet 1 tab PO DAILY mirtazapine 15 mg tablet See Rx Instructions .ROUTE .COMPLEX Qty: 28 0RF Dose Instruction: TAKE 1 TABLET BY MOUTH DAILY AT BEDTIME FOR DEPRESSION Rx Instructions: TAKE 1 TABLET BY MOUTH DAILY AT BEDTIME FOR DEPRESSION Referrals: Romeo Anderson DO [Primary Care Provider] - Patient Instructions: Opioid Safety, Pain Management Coding Level of Care Code ED 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
--- NOTE | 2023-07-11 07:31 | XRR_ITS ---
PROCEDURE INFORMATION: Exam: XR Chest Exam date and time: 07/11/2023 7:29 AM Age: 87 years old Clinical indication: Dyspnea; Additional info: Preop TECHNIQUE: Imaging protocol: Radiologic exam of the chest. Views: 1 view. COMPARISON: CT chest w con* [id number] 02/13/2022 3:36 PM FINDINGS: Lungs: Unremarkable. No consolidation. Pleural spaces: Unremarkable. No pleural effusion. No pneumothorax. Heart/Mediastinum: Unremarkable. No cardiomegaly. Bones/joints: There is a left humeral neck fracture. XR/XR chest 1V portable [id number] IMPRESSION: No acute pulmonary process.
[2023-07-11 08:56] LABS: Basophils % 0.2 %; Eosinophils % 0.1 %; Hematocrit 35.7 % (36-47); Lymphocytes # 0.4 10^3/uL (0.8-4.8); Lymphocytes % 3.3 %; Mean Corpuscular HGB Conc 31.1 g/dL (30-55); Mean Corpuscular Hemoglobin 28.5 pg (27-33); Mean Corpuscular Volume 91.8 fl (85-98); Mean Platelet Volume 9.1 fL (7.4-10.4); Monocytes # 0.7 10^3/uL (0.2-0.9); Monocytes % 5.2 %; Neutrophils % 90.8 %; Nucleated Red Blood Cells % 0 %; Platelet Count 194 10^3/cmm (157-399); Red Blood Count 3.89 10^6/uL (3.85-5.65); Red Cell Distribution Width 13.2 % (12.1-15.1); White Blood Count 12.88 10^3/uL (3.29-11.43)
[2023-07-11 09:14] LABS: INR 1.04 (0.8-1.2); Partial Thromboplastin Time 25.2 SECONDS (23.9-36.7)
--- NOTE | 2023-07-11 09:20 | PC.PHAR ---
PT IS FROM [facility]. 07/11/23
[2023-07-11 09:23] LABS: Alanine Aminotransferase 18 U/L (0-33); Albumin Level 4.3 g/dL (3.5-5.2); Alkaline Phosphatase 78 U/L (35-105); Anion Gap 13.8 (5-19); Aspartate Amino Transferase 24 U/L (0-32); Blood Urea Nitrogen 39 mg/dL (8-23); Calcium 9.7 mg/dL (8.5-10.5); Carbon Dioxide 26 mmol/L (22-29); Chloride 105 mmol/L (98-107); Globulin 2.4 g/dL (1.3-4.6); Glucose 172 mg/dL (65-115); Osmolality Calculated 305 mOsm/kg (285-295); Potassium 3.8 mmol/L (3.5-5.1); Sodium 141 mmol/L (136-145); Total Bilirubin 0.4 mg/dL (0.15-1.2); Total Protein 6.7 g/dL (6.6-8.7)
--- NOTE | 2023-07-11 09:56 | PM.HP ---
Providers/Chief Complaint Admitting Physician: Nathan Phillip Primary Care Provider: Romeo Anderson DO Chief Complaint: FALL History of Present Illness 87-year-old lady [place] resident with remote history of colon cancer, colon resection, dementia, HTN, hypothyroidism, other medical problems fell around 4 AM this morning with severe left-sided hip pain, left arm pain, she states that she was trying to get out of bed because she had to go somewhere and seems that when the fall occurred. She states that had some lightheadedness in the past but not this time, no other recent new developments in her health. Has not been short of breath, no chest pain or pressure. Ambulation on flat ground is usually not limited by any dyspnea or chest pain or pressure. In ER she is found to have intertrochanteric left hip fracture as well as left humeral neck fracture. Review of Systems Const: Denies: fever(s), chills, body aches or malaise ENMT: Denies: throat pain Card: Denies: chest pain, edema, pre-syncope or dyspnea on exertion Resp: Denies: dyspnea, productive cough, change in phlegm color or hemoptysis GI: Denies: abdominal pain, nausea, vomiting, diarrhea, constipation, hematochezia or melena : Denies: flank pain, urinary frequency or hematuria Musc: Denies: back pain, joint swelling or joint redness Skin/Breast: Denies: rash or new lesions Neuro: Denies: headache(s), numbness in extremities, weakness in extremities, dizziness, confusion or seizure-like activity Medications/Allergies Home Medications Medication Instructions Recorded Confirmed Last Taken Type acetaminophen 500 mg capsule See Rx Instructions .Route 12/02/20 07/11/23 12/08/20 History .COMPLEX PRN Pain lisinopril 20 2 tab PO BID 12/02/20 07/11/23 12/08/20 History mg-hydrochlorothiazide 12.5 mg tablet anastrozole 1 mg tablet 1 mg PO DAILY 11/15/21 07/11/23 Unknown History cyanocobalamin (vitamin B-12) 2,500 mcg PO DAILY 11/15/21 07/11/23 Unknown History 1,000 mcg tablet (Vitamin B-12) docusate sodium 100 mg capsule 100 mg PO BID PRN constipation 11/15/21 07/11/23 Unknown History (Colace) latanoprost 0.005 % eye drops 1 drp ophthalmic (eye) BEDTIME 11/15/21 07/11/23 Unknown History magnesium oxide 250 mg PO DAILY 11/15/21 07/11/23 Unknown History meloxicam 15 mg tablet 15 mg PO DAILY 11/15/21 07/11/23 Unknown History multivitamin 1 tab PO DAILY 11/15/21 07/11/23 Unknown History diclofenac sodium 1 % topical gel See Rx Instructions .Route .COMPLEX 07/11/23 07/11/23 Unknown History levothyroxine 25 mcg tablet 25 mcg PO QAM 07/11/23 07/11/23 Unknown History mirtazapine 15 mg tablet 15 mg PO BEDTIME 07/11/23 07/11/23 Unknown History Allergies Allergy/AdvReac Type Severity Reaction Status Date / Time codeine Allergy Intermediate nausea Verified 07/11/23 06:45 PFSH Acute PFSH: Medical History (Updated 07/11/23 @ 10:19 by Nathan Phillip MD) Adenocarcinoma of cecum Breast cancer, right Dementia History of colon cancer Hypertension Hypothyroidism Pulmonary nodules Vitamin D deficiency Surgical History History of appendectomy History of back surgery 2x History of bilateral cataract extraction History of cholecystectomy History of colon resection History of colonoscopy History of hysterectomy S/P right mastectomy (12/09/20) Family History Other Cancer Dementia Diabetes Hyperlipidemia Hypertension Stroke Denies family history of CAD (coronary artery disease) Clotting disorder Psychiatric illness Chronic kidney disease (CKD) Suicide Anesthesia complication Bleeding disorder Lung disease Social History Smoking and tobacco/nicotine status: never used tobacco/nicotine Alcohol intake: never Vitals/I&O/Wt Last Vital Signs Temp 97.7 F 07/11/23 06:38 Pulse 58 L 07/11/23 06:52 Resp 22 H 07/11/23 06:52 BP 139/61 07/11/23 06:52 Pulse Ox 96 07/11/23 06:52 O2 Del Method Room Air 07/11/23 06:52 Weight last 48 hrs Weight 63.503 kg Physical Exam Narrative: Accompanied by family. Const: COMMON NORMALS: alert GENERAL APPEARANCE: cooperative ORIENTATION/CONSCIOUSNESS: Yes awake HENMT: COMMON NORMALS: oropharynx normal Neck/C-Spine: COMMON NORMALS: no JVD Resp: COMMON NORMALS: normal respiratory effort and clear to auscultation bilaterally AUSCULTATION: clear to auscultation bilaterally Cardio: COMMON NORMALS: no JVD, regular rhythm, S1 normal heart sound present, S2 normal heart sound present and No murmurs present (Cardio) RHYTHM: regular rhythm HEART SOUNDS: S1 normal heart sound present and S2 normal heart sound present GI: COMMON NORMALS: Normal to inspection, nondistended, normoactive bowel sounds present, Soft to palpation and non-tender PALPATION: Yes Soft to palpation Extremity: COMMON NORMALS: no joint enlargement and no pedal edema NARRATIVE EXTREMITY EXAM: Antalgic positioning left arm, left leg Neuro: COMMON NORMALS: patient oriented x3 and moves all extremities SENSORIUM/ORIENTATION: Yes alert Skin: COMMON NORMALS: no rashes or lesions noted GENERAL SKIN EXAM: no rashes or lesions noted Data 07/11/23 08:41 07/11/23 08:41 A&P Assessment and plan (1) Closed left femoral fracture: Seems after accidental fall try to get out of bed. She and family would like to pursue surgical repair. Understand elevated risk with her age, although otherwise she seems to be pretty active, unrestricted in her mobility on flat ground without any dyspnea or chest pain or pressure. Will obtain baseline EKG, otherwise does not appear that there is much that should delay surgery. Will be at risk of delirium perioperatively especially with her age and underlying dementia. Orthopedics consulted in ER. NPO. Hold lisinopril, HCTZ. Hilliard catheter. Most history obtained from her family. Reviewed vitals, CBC, INR, CMP, chest, shoulder, hip x-rays and head CT. Reviewed ER documentation, discussed with ER physician. (2) Closed left humeral fracture: Pending orthopedic evaluation. Sling is requested. (3) Accidental fall: Obtain UA, check TSH. States she fell getting out of bed. Does have underlying dementia. (4) Dementia: At risk of delirium. May have difficult recovery. May fare better without delays in repair of her hip and mobilization. Unclear whether we will be able to safely continue on her own at [place]. Case management consultation for postdischarge planning. (5) Contusion of face, scalp and neck: Reassess (6) Goals of care, counseling/discussion: Whereas patient and family would like to pursue surgical intervention and any other medical treatments, in case of cardiopulmonary arrest, would not want cardiopulmonary resuscitation. Plan History of colon resection with history of colon cancer. Intermittent diarrhea/constipation. HTN: Monitor blood pressures. Hold lisinopril, HCTZ for now in anticipation of possible surgical intervention. Hypothyroidism: Continue levothyroxine. Check TSH. Pulmonary nodule Right kidney disease: Appears baseline creatinine is around 1.2 as currently. Would avoid and discontinue NSAIDs at discharge. Unable to enter admission orders at the moment as it is being blocked by another user. Attestations Medical Necessity Statement*: Admission of over 2 midnights anticipated for assessment management of left hip and left humeral fracture in a lady of advanced age with underlying dementia. Diagnoses Closed left femoral fracture S72.92XA Closed left humeral fracture S42.302A Accidental fall W19.XXXA Dementia F03.90 Contusion of face, scalp and neck S00.83XA; S00.03XA; S10.93XA Goals of care, counseling/discussion Z71.89
--- NOTE | 2023-07-11 10:13 | ECG_ITS ---
[facility] Test Date: 2023-07-11 Pat Name: Rhina Brewer Department: Room: 261 Gender: Female Rn Anesthesiology: : 1935 Requested By: Nathan Phillip Order Number: [id number] Reading MD: Milo Verdugo M.D. Measurements Intervals [place] Rate: 66 P: 78 ME: 151 QRS: -14 QRSD: 83 T: 62 QT: 414 QTc: 435 Interpretive Statements SINUS RHYTHM Normal EKG Compared to ECG 12/06/2020 10:57:13 No significant changes Electronically Signed On 07-11-2023 13:50:56 [employer] by Milo Verdugo M.D. [id number]
[2023-07-11 10:38] LABS: Thyroid Stimulating Hormone 2.69 uIU/mL (0.27-4.20)
[2023-07-11 10:56] LABS: Add Urine Microscopic? NO; Charge for UA Resulting for Rev
--- NOTE | 2023-07-11 11:02 | P.CONIM_ITS ---
Providers/Reason For Consult Consulting Physician/Specialty*: Yandy Chau MD Reason for Consult*: Left Intertrochanteric Hip Fracture Requesting Physician: Dr. Donnie Carreon Attending Physician: Nathan Phillip Primary Care Provider: Romeo Anderson DO History of Present Illness History of Present Illness Rhina Brewer is a 87 year old female who is a resident of [place] and who presents today after an unwitnessed fall. The patient stated that she was trying to get out of bed at approximately 4 AM this morning. Causes for her fall have been denied including shortness of breath, chest pain, or chest pressu re. She does suffer with a history of colon cancer with subsequent colon resection, dementia, hypertension, and hypothyroidism. She was found to have both a left intertrochanteric hip fracture and left humeral neck fracture upon her evaluation in the emergency department. She was admitted to the medical service. I was consulted for evaluation and definitive treatment. Review of Systems General: Reports: 10 or more systems reviewed and unremarkable except in HPI and below Const: Denies: fever(s), chills, body aches or malaise ENMT: Denies: throat pain Card: Denies: chest pain, edema, pre-syncope or dyspnea on exertion Resp: Denies: dyspnea, productive cough, change in phlegm color or hemoptysis GI: Denies: abdominal pain, nausea, vomiting, diarrhea, constipation, hematochezia or melena : Denies: flank pain, urinary frequency or hematuria Musc: Reports: extremity pain and joint pain; Denies: back pain, joint swelling or joint redness Skin/Breast: Reports: other (Laceration to the left supraorbital region); Denies: rash or new lesions Neuro: Denies: headache(s), numbness in extremities, weakness in extremities, dizziness, confusion or seizure-like activity Medications/Allergies Home Medications Medication Instructions Recorded Confirmed Last Taken Type acetaminophen 500 mg capsule See Rx Instructions .Route 12/02/20 07/11/23 12/08/20 History .COMPLEX PRN Pain lisinopril 20 2 tab PO BID 12/02/20 07/11/23 12/08/20 History mg-hydrochlorothiazide 12.5 mg tablet anastrozole 1 mg tablet 1 mg PO DAILY 11/15/21 07/11/23 Unknown History cyanocobalamin (vitamin B-12) 2,500 mcg PO DAILY 11/15/21 07/11/23 Unknown History 1,000 mcg tablet (Vitamin B-12) docusate sodium 100 mg capsule 100 mg PO BID PRN constipation 11/15/21 07/11/23 Unknown History (Colace) latanoprost 0.005 % eye drops 1 drp ophthalmic (eye) BEDTIME 11/15/21 07/11/23 Unknown History magnesium oxide 250 mg PO DAILY 11/15/21 07/11/23 Unknown History meloxicam 15 mg tablet 15 mg PO DAILY 11/15/21 07/11/23 Unknown History multivitamin 1 tab PO DAILY 11/15/21 07/11/23 Unknown History diclofenac sodium 1 % topical gel See Rx Instructions .Route .COMPLEX 07/11/23 07/11/23 Unknown History levothyroxine 25 mcg tablet 25 mcg PO QAM 07/11/23 07/11/23 Unknown History mirtazapine 15 mg tablet 15 mg PO BEDTIME 07/11/23 07/11/23 Unknown History Allergies Allergy/AdvReac Type Severity Reaction Status Date / Time codeine Allergy Intermediate nausea Verified 07/11/23 06:45 PFSH Acute PFSH: Medical History (Updated 07/11/23 @ 11:14 by Yandy Chau MD) Adenocarcinoma of cecum Breast cancer, right Dementia History of colon cancer Hypertension Hypothyroidism Pulmonary nodules Vitamin D deficiency Surgical History History of appendectomy History of back surgery 2x History of bilateral cataract extraction History of cholecystectomy History of colon resection History of colonoscopy History of hysterectomy S/P right mastectomy (12/09/20) Family History Other Cancer Dementia Diabetes Hyperlipidemia Hypertension Stroke Denies family history of CAD (coronary artery disease) Clotting disorder Psychiatric illness Chronic kidney disease (CKD) Suicide Anesthesia complication Bleeding disorder Lung disease Social History Smoking and tobacco/nicotine status: never used tobacco/nicotine Alcohol intake: never Vitals/I&O/Wt Last Vital Signs Temp 97.7 F 07/11/23 06:38 Pulse 58 L 07/11/23 06:52 Resp 22 H 07/11/23 06:52 BP 139/61 07/11/23 06:52 Pulse Ox 96 07/11/23 06:52 O2 Del Method Room Air 07/11/23 06:52 Weight last 48 hrs Weight 140 lb Physical Exam Urinary Catheter Management: [place]: Cath Placed During This Visit: yes Urinary Catheter Date of Insertion: 07/11/23 Urinary Catheter Time of Insertion: 10:52 Data 07/11/23 08:41 07/11/23 08:41 Xray Ortho: My impression: X-rays of the patient's left hip and shoulder are evaluated and interpreted by me. The imaging studies demonstrate there is a proximal humerus fracture involving the surgical neck and more of a transverse fashion. There is minimal comminution. The humeral head is well located. There is significant displacement. Left hip imaging demonstrates there is an intertrochanteric hip fracture involving both the greater and lesser trochanters. There is minimal angulation and no significant shortening on initial imaging. A&P Assessment and plan (1) Closed intertrochanteric fracture of left hip: Patient presented to the emergency room after a fall at approximately 4 AM. There was no reason for her fall, but she got out of bed stating she had to go somewhere. The patient suffers with dementia. She was admitted through the emergency room with complaints of both left shoulder and hip pain. She was unable to ambulate. She also had contusions of the face scalp and neck. Upon evaluation, the patient was found to have a left intertrochanteric hip fracture with minimal angulation and displacement. Additionally, she had a proximal humerus fracture involving the surgical neck with displacement. Patient will be taken to the operating room for open reduction internal fixation of her left intertrochanteric hip fracture. Plans are for surgical intervention today. Questions were answered and consents were signed in the preoperative area. Qualifiers: Encounter type: initial encounter Fracture alignment: displaced Qualified Code(s): S72.142A - Displaced intertrochanteric fracture of left femur, initial encounter for closed fracture (2) Fracture of surgical neck of left humerus: X-rays are evaluated, and this fracture demonstrates significant displacement, but she is quite osteopenic and not a good surgical candidate. Plans will be made for closed treatment. Discussion occurred regarding closed treatment of her humeral surgical neck fracture. Family is in agreement. Qualifiers: Encounter type: initial encounter Fracture morphology: unspecified fracture morphology Fracture type: closed Consult Attestations Medical Necessity Statement: Ongoing care for infected total hip arthroplasty Coding Level of Care Code Acute Code for [facility] Fwd Diagnoses Closed intertrochanteric fracture of left hip S72.142A Encounter type: initial encounter Fracture alignment: displaced Fracture of surgical neck of left humerus S42.212A Encounter type: initial encounter Fracture morphology: unspecified fracture morphology Fracture type: closed
[2023-07-11 11:07] LABS: Bilirubin Urine Neg (Negative); Blood Urine Neg (Negative); Glucose Urine UA Norm (Normal); Ketones Urine 1+ (Negative); Leukocyte Esterase Urine Negative (Negative); Nitrate Urine Negative (Negative); Protein Urine Neg (Negative); Specific Gravity, Urine 1.015 (1.005-1.030); Urine Appearance Clear (CLEAR); Urine Color Straw (Yellow); Urobilinogen Urine Norm (Negative); pH Urine 5 (5-7)
[2023-07-11] MEDS: gabapentin 300 mg Capsule PO (11:56)
[2023-07-11] MEDS: CELEcoxib 200 mg Capsule 400 MG PO (11:56)
[2023-07-11] MEDS: acetaminophen 1,000 MG/100 ML PIGGYBACK 400 MG IV (11:56)
[2023-07-11] MEDS: sodium chloride 0.9% 1,000 ML 30 ML IV (11:57)
--- NOTE | 2023-07-11 13:19 | P.ANESASSM_ITS ---
Pre-Anesthetic Assessment Height/Weight: Height 1.65 m Weight 63.503 kg Temp Pulse Resp BP Pulse Ox O2 Del Method 98.8 F 62 19 H 132/60 95 Room Air 07/11/23 11:45 07/11/23 11:45 07/11/23 11:45 07/11/23 11:45 07/11/23 11:45 07/11/23 11:45 Operation Date: 07/11/23 12:15 Proposed Procedures p Total Hip Arthroplasty(Left) - Yandy Chau MD Familial anesthetic complications: none Was Beta Ada taken within 24 hours: N/A Was Clonidine taken within 24 hours: N/A Social No alcohol and No tobacco Exam alert and clear to auscultation bilaterally Airway Submandibular: within normal limits Cervical ROM: within normal limits Mallampati: Class II Dentition: false CV/HEM Hypertension Chronic Renal Insufficiency GI Colon CA Metabolic Thyroid Disease [facility] [place] Osteoarthritis/DJD Neuropsych Dementia Anesthetic Plan ASA status: 3 Anesthesia: General Medications/Allergies Home Medications Medication Instructions Recorded Confirmed Last Taken Type acetaminophen 500 mg capsule See Rx Instructions .Route 12/02/20 07/11/23 12/08/20 History .COMPLEX PRN Pain lisinopril 20 2 tab PO BID 12/02/20 07/11/23 12/08/20 History mg-hydrochlorothiazide 12.5 mg tablet anastrozole 1 mg tablet 1 mg PO DAILY 11/15/21 07/11/23 Unknown History cyanocobalamin (vitamin B-12) 2,500 mcg PO DAILY 11/15/21 07/11/23 Unknown History 1,000 mcg tablet (Vitamin B-12) docusate sodium 100 mg capsule 100 mg PO BID PRN constipation 11/15/21 07/11/23 Unknown History (Colace) latanoprost 0.005 % eye drops 1 drp ophthalmic (eye) BEDTIME 11/15/21 07/11/23 Unknown History magnesium oxide 250 mg PO DAILY 11/15/21 07/11/23 Unknown History meloxicam 15 mg tablet 15 mg PO DAILY 11/15/21 07/11/23 Unknown History multivitamin 1 tab PO DAILY 11/15/21 07/11/23 Unknown History diclofenac sodium 1 % topical gel See Rx Instructions .Route .COMPLEX 07/11/23 07/11/23 Unknown History levothyroxine 25 mcg tablet 25 mcg PO QAM 07/11/23 07/11/23 Unknown History mirtazapine 15 mg tablet 15 mg PO BEDTIME 07/11/23 07/11/23 Unknown History Allergies Allergy/AdvReac Type Severity Reaction Status Date / Time codeine Allergy Intermediate nausea Verified 07/11/23 06:45 Current Medications Generic Name Dose Route Start Last Admin Trade Name Freq PRN Reason Stop Dose Admin Sodium Chloride 1,000 mls @ 30 mls/hr 07/11/23 12:00 07/11/23 11:57 Sodium Chloride 0.9% IV 07/12/23 11:59 30 mls/hr .Q24H JACQUELINE Administration PFSH Anesthesia Medical History (Updated 07/11/23 @ 11:14 by Yandy Chau MD) Adenocarcinoma of cecum Breast cancer, right Dementia History of colon cancer Hypertension Hypothyroidism Pulmonary nodules Vitamin D deficiency Surgical History History of appendectomy History of back surgery 2x History of bilateral cataract extraction History of cholecystectomy History of colon resection History of colonoscopy History of hysterectomy S/P right mastectomy (12/09/20) Family History Other Cancer Dementia Diabetes Hyperlipidemia Hypertension Stroke Denies family history of CAD (coronary artery disease) Clotting disorder Psychiatric illness Chronic kidney disease (CKD) Suicide Anesthesia complication Bleeding disorder Lung disease Social History Smoking and tobacco/nicotine status: never used tobacco/nicotine Alcohol intake: never Data Anesthesia 07/11/23 08:41 07/11/23 08:41 Short CBC 07/11/23 Range/Units 08:41 WBC 12.88 H (3.29-11.43) 10^3/uL Hgb 11.10 L (11.27-16.99) g/dL Hct 35.7 L (36-47) % MCV 91.8 (85-98) fl Plt Count 194 (157-399) 10^3/cmm Neut % (Auto) 90.8 % Neut # (Auto) 11.70 H (1.8-7.7) 10^3/uL BMP 07/11/23 08:41 Sodium 141 Potassium 3.8 Chloride 105 Carbon Dioxide 26 BUN 39 H Creatinine 1.2 H Glucose 172 H Calcium 9.7 Liver Function 07/11/23 Range/Units 08:41 Total Bilirubin 0.4 (0.15-1.2) mg/dL AST 24 (0-32) U/L ALT 18 (0-33) U/L Alkaline Phosphatase 78 (35-105) U/L Albumin 4.3 (3.5-5.2) g/dL Urine 07/11/23 Range/Units 10:19 Urine Color Straw (Yellow) Urine Appearance Clear (CLEAR) Urine pH 5 (5-7) Ur Specific [place] 1.015 (1.005-1.030) Urine Protein Neg (Negative) Urine Glucose (UA) Norm (Normal) Urine Ketones 1+ H (Negative) Urine Nitrate Negative (Negative) Urine Bilirubin Neg (Negative) Ur Leukocyte Esterase Negative (Negative) Coags 07/11/23 08:41 PT 13.90 INR 1.04 APTT 25.2 Cardiac Studies: No Data to Display
[2023-07-11] MEDS: ceFAZolin 2,000 MG in sodium chloride 0.9% (plus) 50 ML 100 MG IV ×3 (13:47→23:55)
[2023-07-11] MEDS: BUPivacaine 0.5% INJ 30 mL 20 ML INJECTION (14:42)
--- NOTE | 2023-07-11 15:16 | ANE.PACU2 ---
Inpatient post-anesthesia follow up: Airway intact: Yes Vital signs: Temperature 98.8 F Pulse Rate 62 Respiratory Rate 19 Blood Pressure 132/60 Pulse Oximetry 95 Oxygen Delivery Me thod Room Air Oxygen Flow Rate Fraction of Inspir ed Oxygen Hydration adequate: Yes Nausea and vomiting: No Pain level: 1 Mental status: Baseline
--- NOTE | 2023-07-11 16:03 | P.OP_ITS ---
Operative Report Date of procedure: July 11, 2023 Pre-op diagnosis: Slightly displaced left intertrochanteric hip fracture Post-op diagnosis: Slightly displaced left intertrochanteric hip fracture Procedure done: Open reduction internal fixation left intertrochanteric hip fracture Implants: The [place] gamma nail 3 with an 11 mm x 180 mm x 125 degree gamma 3 trochanteric nail, a 10.5 mm x 100 mm lag screw and a 5 mm x 35 mm fully threaded distal locking screw Specimens removed/disposition: None Surgeon: Yandy Chau MD [employer] Consulting: None Anesthesia: General (Per LMA, ASA 3) Estimated blood loss (mL): 20 IV fluids (mL): 1,500 Urine output (mL): 700 Complications: None Condition: stable Disposition: PACU (Then admitted to the floor for postoperative rehabilitation and pain management) Brief History: Rhina Brewer is a 87 year old female who is a resident of [place] and who presents today after an unwitnessed fall.? The patient stated that she was trying to get out of bed at approximately 4 AM this morning.? Causes for her fall have been denied including shortness of breath, chest pain, or chest pressure.? She does suffer with a history of colon cancer with subsequent colon resection, dementia, hypertension, and hypothyroidism.? She was found to have both a left intertrochanteric hip fracture and left humeral neck fracture upon her evaluation in the emergency department.? She was admitted to the medical service.? Patient was seen with her family in the room. Discussion was undertaken with regards to appropriate treatment for this fracture. Risks and complications were discussed. Consents were signed and questions were answered. Procedure: Patient is brought to the operating theater. After undergoing adequate general anesthesia with intubation, the patient was transferred to the fracture table, positioned on the table and fluoroscopic guidance obtained throughout the surgical procedure. Prior to the commencement of the surgical procedure, a surgical pause was performed. At the time of the surgical pause, we confirmed the site and side of surgery as well as preoperative surgical markings and appropriate and timely administration of IV antibiotics, Ancef 2 g. Availability of equipment was also confirmed. Fluoroscopy was used to confirm the fracture was appropriately reduced in both AP and lateral planes. An incision was then made slightly above the greater trochanter to allow access to the greater trochanter. An awl was used to enter the greater trochanter and a guidewire was subsequently placed. Once the guidewire was confirmed to be in appropriate position in AP and lateral planes, reaming was accomplished over this to allow for the proximal diameter of the nail. Guidewire was then removed. An 11 mm x 180 mm x 125 degree gamma 3 trochanteric nail was placed into appropriate position with positioning being confirmed in AP and lateral planes on the x-ray. It passed without difficulty. Guidewire was then passed through the jigging system into the femoral head. We wanted to be center or slightly inferior and posterior to center. Guidewire was placed into appropriate position. Once the guidewire was in appropriate position and this position was confirmed by x-ray. This was then measured and we chose a 10.5 mm x 100 mm lag screw. We reamed to allow for the lag screw to be placed. The 10.5 mm x 100 mm lag screw was then passed into the femoral head through the trochanteric nail. This was passed uneventfully and again position was confirmed in AP and lateral planes. Compression was obtained under fluoroscopic guidance. The set screw was then placed in position, tightened completely, and subsequently backed off one-quarter turn. The construct was left in position and attention was directed distally. Cannulas were again used to determine appropriate placement for the distal screw. This was placed in position without difficulty. It was measured off of the drill. The appropriate length screw was then obtained and placed in position without difficulty. Once the screw was in position, we confirmed appropriate placement of the components, and we removed the jigging system. Attention was then directed to closure. The hip was copiously irrigated with normal saline with antibiotics. Following this it was dried and closed. Tensor fascia darren was closed proximally with 0 Vicryl in an interrupted fashion. Subcutaneous tissues were closed with 2-0 Monocryl, and the skin was closed with a continuous 3-0 Monocryl subcuticular stitch. This was then covered with Dermabond followed by Steri-Strips and OpSite. The patient was removed from the fracture table and returned to recovery in satisfactory condition. The patient will be discharged to the floor for postoperative rehabilitation and pain management. There were no specimens obtained. Related Problem List Diagnoses (1) Closed intertrochanteric fracture of left hip:
[2023-07-11] MEDS: lisinopril 20 mg Tablet PO (17:08)
[2023-07-11] MEDS: hydroCHLOROthiazide 25 mg Tablet 12.5 MG PO (17:09)
[2023-07-11] MEDS: acetaminophen 500 mg Tablet 1000 MG PO ×2 (17:09→23:55)
[2023-07-11] MEDS: mirtazapine 15 mg Tablet PO (22:06)
[2023-07-11] MEDS: latanoprost 0.005% Op Soln 2.5 mL Btl 1 DROP EYE-BOTH (22:10)
[2023-07-12] VITALS (7 sets, daily range): BP systolic 93–140; BP diastolic 50–58; PULSE 65–89; RESP 16–18; TEMP 36.4–36.6; O2SAT 94–98; BMI 23.3
[2023-07-12] MEDS: oxyCODONE 5 mg IR Tab/Cap PO ×2 (06:24→10:38)
[2023-07-12] MEDS: levothyroxine 25 mcg Tablet PO (06:25)
[2023-07-12] MEDS: ceFAZolin 2,000 MG in sodium chloride 0.9% (plus) 50 ML 100 MG IV (08:32)
[2023-07-12] MEDS: cyanocobalamin 1,000 mcg Tablet 2500 MCG PO (08:33)
[2023-07-12] MEDS: hydroCHLOROthiazide 25 mg Tablet 12.5 MG PO (08:34)
[2023-07-12] MEDS: acetaminophen 500 mg Tablet 1000 MG PO ×2 (08:34→17:24)
[2023-07-12] MEDS: meloxicam 7.5 mg tablet 15 MG PO (08:34)
[2023-07-12] MEDS: lisinopril 20 mg Tablet PO (08:34)
[2023-07-12] MEDS: aspirin 325 mg EC Tablet PO (08:34)
[2023-07-12] MEDS: docusate sodium 100 mg Capsule PO (08:34)
[2023-07-12] MEDS: anastrozole 1 mg Tablet PO (10:35)
--- NOTE | 2023-07-12 11:56 | PC.OT ---
OT EVALUATION ATTEMPTED TWICE THIS A.M. AT FIRST ATTEMPT THE PATIENT WAS EATING BREAKFAST. AT SECOND ATTEMPT THE PATIENT BP WAS 94/47; HOLD OT AT THIS TIME.
[2023-07-12] MEDS: sodium chloride 0.9% 1,000 ML 50 ML IV (12:21)
[2023-07-12 13:13] LABS: Iron 45 ug/dL (37-145); Percent Saturation 18.1 % (20-50); Total Iron Binding Capacity 248 mcg/dl; Unsaturated Iron Binding 203 ug/dL (112-347)
[2023-07-12 13:29] LABS: Vitamin B12 1893 pg/mL (232-1245)
--- NOTE | 2023-07-12 13:31 | P.PN_ITS ---
Subjective 2 Subjective: Patient is seen in her room the day. She has not been up yet with physical therapy secondary to ongoing medical issues. Patient is at baseline for confusion. Medications: Reviewed: Yes Vitals/I&O/Wt Last Vital Signs Temp 97.5 F L 07/12/23 12:23 Pulse 67 07/12/23 12:23 Resp 18 07/12/23 12:23 BP 104/58 07/12/23 12:23 Pulse Ox 94 07/12/23 12:23 O2 Del Method Room Air 07/12/23 12:23 07/11/23 07/12/23 07/12/23 22:59 06:59 14:59 Intake Total 1010 / 1060 170 / 1230 1372 / 1372 Output Total 1600 / 1600 400 / 2000 Balance -590 / -540 -230 / -770 1372 / 1372 Weight last 48 hrs Weight 140 lb Weight 140 lb Weight 140 lb Physical Exam 2 Const: COMMON NORMALS: no acute distress, average body habitus, patient oriented x3 and alert GENERAL APPEARANCE: cooperative and comfortable O RIENTATION/CONSCIOUSNESS: Yes awake HENMT: COMMON NORMALS: normocephalic and atraumatic HEAD & SCALP: n ormocephalic and atraumatic Eye: GENERAL EYE: appearance normal, both eyes and all related structures Chest: COMMONS NORMALS: normal inspection of the chest Resp: COMMON NORMALS: normal respiratory effort EFFORT & INSPECTION: Yes able to speak in complete sentences and Yes symmetric chest movement Extremity: LEFT LOWER EXTREMITY: Yes hip joint (Minimal to no swelling) Left hip: Yes inspection (No ecchymosis), Yes palpation (Minimal tenderness), Yes ROM (Not evaluated) and Yes neurovascular exam (Intact distally with no evidence of DVT) Neuro: COMMON NORMALS: patient oriented x3 SENSORIUM/ORIENTATION: Yes alert Psych: COMMON NORMALS: mental status grossly normal APPEARANCE: Yes grossly normal ATTITUDE: Yes calm and Yes engaged ATTENTION/CONCENTRATION: Yes attention grossly intact Skin: COMMON NORMALS: no rashes or lesions noted GENERAL SKIN EXAM: no rashes or lesions noted Urinary Catheter Management: [place]: Cath Placed During This Visit: yes, but has since been removed by the nurse Reason for Continuing Indwelling Catheter: Perioperative Use in Selected Surgeries Urinary Catheter Date of Insertion: 07/11/23 Urinary Catheter Time of Insertion: 10:52 Date Urinary Catheter Removed: 07/12/23 Time Urinary Catheter Discontinued: 06:30 Data 07/13/23 05:20 07/13/23 05:20 A&P Assessment and plan (1) Closed intertrochanteric fracture of left hip: Patient presented to the emergency room after a fall at approximately 4 AM the day of surgery. There was no reason for her fall, but she got out of bed stating she had to go somewhere. The patient suffers with dementia. She was admitted through the emergency room with complaints of both left shoulder and hip pain. She was unable to ambulate. She also had contusions of the face scalp and neck. Upon evaluation, the patient was found to have a left intertrochanteric hip fracture with minimal angulation and displacement. Additionally, she had a proximal humerus fracture involving the surgical neck with displacement. Patient was taken on the day of admission to the operating room for open reduction internal fixation of her left intertrochanteric hip fracture. Her shoulder fracture will be treated nonoperatively in a shoulder immobilizer, and this has been discussed with the patient's family. Patient will begin to work with physical therapy as tolerated. Qualifiers: Encounter type: initial encounter Fracture alignment: displaced Qualified Code(s): S72.142A - Displaced intertrochanteric fracture of left femur, initial encounter for closed fracture (2) Fracture of surgical neck of left humerus: Qualifiers: Encounter type: initial encounter Fracture type: closed Fracture morphology: unspecified fracture morphology Fracture alignment: displaced Qualified Code(s): S42.212A - Unspecified displaced fracture of surgical neck of left humerus, initial encounter for closed fracture Attestations 2 Medical Necessity Statement*: Ongoing care following left hip and proximal humerus fracture Coding Level of Care Code Acute Code for [facility] Fwd Diagnoses Closed displaced intertrochanteric fracture of left femur, initial encounter S72.142A Encounter type: initial encounter Fracture alignment: displaced Closed displaced fracture of surgical neck of left humerus, unspecified fracture morphology, initial encounter S42.212A Encounter type: initial encounter Fracture type: closed Fracture morphology: unspecified fracture morphology Fracture alignment: displaced
--- NOTE | 2023-07-12 16:18 | PM.PN ---
Subjective Subjective: Hospital course, labs appreciated. Seen with family numbers at bedside. Patient denies any nausea, vomiting, headache. As per the family members patient worked in bedside with physical therapy due to borderline blood pressure the patient hospital did not have any dizziness. Currently patient is awake and alert at her baseline. Denies any dizziness, nausea vomiting, or chest pain. Vitals/I&O/Wt Last Vital Signs Temp 97.5 F L 07/12/23 12:23 Pulse 67 07/12/23 12:23 Resp 18 07/12/23 12:23 BP 104/58 07/12/23 12:23 Pulse Ox 94 07/12/23 12:23 O2 Del Method Room Air 07/12/23 12:23 07/12/23 07/12/23 07/12/23 06:59 14:59 22:59 Intake Total 170 / 1230 1372 / 1372 Output Total 400 / 2000 Balance -230 / -770 1372 / 1372 Weight last 48 hrs Weight 63.503 kg Weight 63.503 kg Weight 63.503 kg Physical Exam Narrative: Accompanied by family. Const: COMMON NORMALS: patient oriented x3 and alert GENERAL APPEARANCE: cooperative ORIENTATION/CONSCIOUSNESS: Yes awake HENMT: COMMON NORMALS: oropharynx normal Neck/C-Spine: COMMON NORMALS: no JVD Resp: COMMON NORMALS: normal respiratory effort and clear to auscultation bilaterally AUSCULTATION: clear to auscultation bilaterally Cardio: COMMON NORMALS: no JVD, regular rhythm, S1 normal heart sound present, S2 normal heart sound present and No murmurs present (Cardio) RHYTHM: regular rhythm HEART SOUNDS: S1 normal heart sound present and S2 normal heart sound present GI: COMMON NORMALS: Normal to inspection, nondistended, normoactive bowel sounds present, Soft to palpation and non-tender PALPATION: Yes Soft to palpation Extremity: COMMON NORMALS: no joint enlargement and no pedal edema NARRATIVE EXTREMITY EXAM: Antalgic positioning left arm, left leg Neuro: COMMON NORMALS: patient oriented x3 and moves all extremities SENSORIUM/ORIENTATION: Yes alert Skin: COMMON NORMALS: no rashes or lesions noted GENERAL SKIN EXAM: no rashes or lesions noted Urinary Catheter Management: Hilliard: Cath Placed During This Visit: yes, but has since been removed by the nurse Reason for Continuing Indwelling Catheter: Perioperative Use in Selected Surgeries Urinary Catheter Date of Insertion: 07/11/23 Urinary Catheter Time of Insertion: 10:52 Date Urinary Catheter Removed: 07/12/23 Time Urinary Catheter Discontinued: 06:30 Data 07/11/23 08:41 07/11/23 08:41 A&P Assessment and plan (1) Closed left femoral fracture: Post ORIF on 07/11. PT evaluation, anticoagulation as per orthopedic team. Decrease pain medications due to borderline blood pressures and advanced age. Monitor hemoglobin. (2) Closed left humeral fracture: (3) Accidental fall: Mechanical fall. Cannot rule out borderline blood pressures. Somehow antihypertensives were restarted postoperatively on transfer. Monitor hemoglobin. (4) Dementia: Frequent reorientation. Currently at baseline. (5) Contusion of face, scalp and neck: Stable. (6) Goals of care, counseling/discussion: Whereas patient and family would like to pursue surgical intervention and any other medical treatments, in case of cardiopulmonary arrest, would not want cardiopulmonary resuscitation. Plan History of colon resection with history of colon cancer. Intermittent diarrhea/constipation. HTN: Goal blood pressure less than 140/90 mmHg. Blood pressure is borderline low. Hold off on any further antihypertensives for now. At home takes combination of lisinopril and hydrochlorothiazide. Hypothyroidism: Continue levothyroxine. Appreciate TSH. Acute versus chronic kidney disease: Appears baseline creatinine is around 1.2 as currently. Would avoid and discontinue NSAIDs at discharge. Gentle IV hydration at 50 cc/h for 1 bag. Repeat BMP in AM. DNR/DNI Advance to regular diet Famotidine for PUD prophylaxis Started on aspirin 325 mg daily by orthopedics for DVT prophylaxis. Discharge planning: Discussed in detail with patient family members at bedside. Patient lives by herself currently at [facility]. Family would want her to go to rehab for a short while. 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 Attestations Medical Necessity Statement*: Requires further hospitalization for postoperative care. Post ORIF, borderline blood pressures and advanced age patient. Diagnoses Closed left femoral fracture S72.92XA Closed left humeral fracture S42.302A Accidental fall W19.XXXA Dementia F03.90 Contusion of face, scalp and neck S00.83XA; S00.03XA; S10.93XA Goals of care, counseling/discussion Z71.89
--- NOTE | 2023-07-12 17:26 | PC.NURSE ---
patient has not voided this shift. bladder scan performed- showed 145ml. Dr. Messina notified. no new orders.
[2023-07-12] MEDS: mirtazapine 15 mg Tablet PO (21:26)
[2023-07-13] VITALS (12 sets, daily range): BP systolic 135–171; BP diastolic 56–83; PULSE 68–88; RESP 16–18; TEMP 36.5–37.1; O2SAT 95–99
[2023-07-13] MEDS: acetaminophen 500 mg Tablet 1000 MG PO ×4 (00:06→23:56)
[2023-07-13] MEDS: levothyroxine 25 mcg Tablet PO (06:00)
[2023-07-13 08:28] LABS: Alanine Aminotransferase < 5 U/L (0-33); Alkaline Phosphatase 59 U/L (35-105); Anion Gap 13.3 (5-19); Aspartate Amino Transferase 34 U/L (0-32); Blood Urea Nitrogen 46 mg/dL (8-23); Calcium 8.2 mg/dL (8.5-10.5); Carbon Dioxide 23 mmol/L (22-29); Chloride 109 mmol/L (98-107); Chol HDL Ratio 2.27 mg/dL (0.0-4.40); Cholesterol 109 mg/dL (0-200); Estmated Average Glucose 103; Folate Level 8.7 ng/mL (4.8-37.3); Globulin 1.9 g/dL (1.3-4.6); Glucose 139 mg/dL (65-115); HDL Cholesterol 48 mg/dL (60-100); Hemoglobin A1C 5.2 % (4.0-6.0); LDL Cholesterol Calculated 43 mg/dL (50-129); Magnesium 2.1 mg/dL (1.7-2.3); Osmolality Calculated 306 mOsm/kg (285-295); Potassium 4.3 mmol/L (3.5-5.1); Sodium 141 mmol/L (136-145); Total Bilirubin 0.2 mg/dL (0.15-1.2); Total Protein 4.9 g/dL (6.6-8.7); Triglycerides 90 mg/dL (0-150); VLDL Cholestrol Calculation 18 mg/dL (0-30)
[2023-07-13] MEDS: meloxicam 7.5 mg tablet 15 MG PO (08:49)
[2023-07-13] MEDS: cyanocobalamin 1,000 mcg Tablet 2500 MCG PO (08:49)
[2023-07-13] MEDS: anastrozole 1 mg Tablet PO (08:49)
[2023-07-13] MEDS: aspirin 325 mg EC Tablet PO (08:50)
[2023-07-13 09:19] LABS: Basophils % 0.2 %; Eosinophils # 0.1 10^3/uL (0.0-0.8); Eosinophils % 1.4 %; Hematocrit 21.3 % (36-47); Lymphocytes # 0.6 10^3/uL (0.8-4.8); Lymphocytes % 9.6 %; Mean Corpuscular Hemoglobin 28.6 pg (27-33); Mean Corpuscular Volume 92.2 fl (85-98); Mean Platelet Volume 9.8 fL (7.4-10.4); Monocytes # 0.7 10^3/uL (0.2-0.9); Monocytes % 10.4 %; Neutrophils # 4.96 10^3/uL (1.8-7.7); Neutrophils % 77.8 %; Nucleated Red Blood Cells % 0 %; Platelet Count 122 10^3/cmm (157-399); Red Blood Count 2.31 10^6/uL (3.85-5.65); Red Cell Distribution Width 13.7 % (12.1-15.1); White Blood Count 6.37 10^3/uL (3.29-11.43)
--- NOTE | 2023-07-13 10:11 | USCV_ITS ---
Rhina Brewer Age: 87 Gender: F : 1935 Exam Date: 07/13/2023 14:00 Ordering Phys: Thomas Sparks MD Technologist: Antoine Grewal [place] [facility] [place] Indication: htn Aortic Velocity @ SMA (cm/s) 103 RIGHT KIDNEY LEFT KIDNEY Velocity (cm/s) Velocity (cm/s) Sys/Armendariz Sys/Armendariz Resistive Index Resistive Index 70.4 / 9.4 0.87 Proximal Renal Artery 49.0 / 9.9 0.80 53.7 / 11.0 0.80 Mid Renal Artery 48.5 / 8.3 0.83 44.3 / 10.4 0.76 Distal Renal Artery 51.6 / 9.9 0.81 40.7 / 10.4 0.74 Hilar 42.8 / 8.9 0.79 49.5 / 9.4 0.81 Upper Pole 51.6 / 9.4 0.82 50.6 / 10.4 0.79 Mid Pole 49.0 / 10.4 0.79 44.3 / 7.8 0.82 Lower Pole 50.6 / 9.4 0.81 0.70 Renal Aortic Ratio 0.50 Accleration Index (cm/sec2) 1718.0 Hilar 440.00 0 1007.0 Upper Pole 1841.0 0 0 1732.0 Mid Pole 948.00 0 794.00 Lower Pole 582.00 72.6 Kidney Length (mm) 86.2 CONCLUSIONS No sonographic evidence of hemodynamically significant renal artery stenosis bilaterally. No hydronephrosis in either kidney Bashir Olsen MD (Electronically Signed) Final Date: 13 July 2023 16:45 S
--- NOTE | 2023-07-13 12:15 | PC.OT ---
OT EVALUATION HELD TODAY DUE TO HGB: 6.6L WILL ATTEMPT AGAIN TOMORROW
[2023-07-13] MEDS: oxyCODONE 5 mg IR Tab/Cap PO ×2 (13:14→18:21)
--- NOTE | 2023-07-13 13:34 | PM.PN ---
Subjective Subjective: No acute events overnight. Patient has remained hemodynamically stable and afebrile. Seen with multiple family members at the. Still waiting to work with physical therapy. Patient did get out of bed to go to bedside commode. Urine output documented appreciated. Blood work shows hemoglobin down to 6.6 today, platelet of 122, CMP showing worsening of creatinine to 1.5 with BUN of 46 today. Vitals/I&O/Wt Last Vital Signs Temp 98.5 F 07/13/23 13:22 Pulse 68 07/13/23 13:22 Resp 16 07/13/23 13:22 BP 158/64 07/13/23 13:22 Pulse Ox 99 07/13/23 13:22 O2 Del Method Room Air 07/13/23 11:28 07/12/23 07/13/23 07/13/23 22:59 06:59 14:59 Intake Total 1971 1120 / 1120 Output Total 350 / 350 1200 / 1200 Balance 1971 -350 / 1622 -80 / -80 Weight last 48 hrs Weight 63.503 kg Weight 63.503 kg Physical Exam Narrative: Accompanied by family. Const: COMMON NORMALS: patient oriented x3 and alert GENERAL APPEARANCE: cooperative ORIENTATION/CONSCIOUSNESS: Yes awake HENMT: COMMON NORMALS: oropharynx normal Neck/C-Spine: COMMON NORMALS: no JVD Resp: COMMON NORMALS: normal respiratory effort and clear to auscultation bilaterally AUSCULTATION: clear to auscultation bilaterally Cardio: COMMON NORMALS: no JVD, regular rhythm, S1 normal heart sound present, S2 normal heart sound present and No murmurs present (Cardio) RHYTHM: regular rhythm HEART SOUNDS: S1 normal heart sound present and S2 normal heart sound present GI: COMMON NORMALS: Normal to inspection, nondistended, normoactive bowel sounds present, Soft to palpation and non-tender PALPATION: Yes Soft to palpation Extremity: COMMON NORMALS: no joint enlargement and no pedal edema NARRATIVE EXTREMITY EXAM: Antalgic positioning left arm, left leg Neuro: COMMON NORMALS: patient oriented x3 and moves all extremities SENSORIUM/ORIENTATION: Yes alert Skin: COMMON NORMALS: no rashes or lesions noted GENERAL SKIN EXAM: no rashes or lesions noted Urinary Catheter Management: Hilliard: Cath Placed During This Visit: yes, but has since been removed by the nurse Reason for Continuing Indwelling Catheter: Perioperative Use in Selected Surgeries Urinary Catheter Date of Insertion: 07/11/23 Urinary Catheter Time of Insertion: 10:52 Date Urinary Catheter Removed: 07/12/23 Time Urinary Catheter Discontinued: 06:30 Data 07/13/23 05:20 07/13/23 05:20 A&P Assessment and plan (1) Closed left femoral fracture: Post ORIF on 07/11. PT , anticoagulation as per orthopedic team. Decrease pain medications due to borderline blood pressures and advanced age. Monitor hemoglobin. (2) Acute kidney injury: Appears baseline creatinine is around 1.2 as currently. Creatinine worsening to 1.5 today, worsening of BUN. Most likely in setting of reinitiation of nephrotoxic medications including losartan, hydrochlorothiazide and meloxicam on transfer from the OR. Medication reconciliation done for nephrotoxic drugs now. No further losartan, hydrochlorothiazide and meloxicam. Transfusion as above, continue with IV hydration at 50 cc/h. Strict input output charting, daily weights. Repeat BMP in AM. (3) Postoperative anemia: Hemoglobin down to 6.6 today. Most likely dilutional along with postoperative status. Target hemoglobin more than 7. Will transfuse 1 unit of PRBC. (4) Closed left humeral fracture: (5) Accidental fall: Mechanical fall. Cannot rule out secondary to borderline low blood pressures. Somehow antihypertensives were restarted postoperatively on transfer. Monitor hemoglobin. (6) Dementia: Frequent reorientation. Currently at baseline. (7) Contusion of face, scalp and neck: Stable. (8) Goals of care, counseling/discussion: Whereas patient and family would like to pursue surgical intervention and any other medical treatments, in case of cardiopulmonary arrest, would not want cardiopulmonary resuscitation. Plan History of colon resection with history of colon cancer. Intermittent diarrhea/constipation. HTN: Goal blood pressure less than 140/90 mmHg. Blood pressure is borderline low. Hold off on any further antihypertensives for now. At home takes combination of lisinopril and hydrochlorothiazide. Hypothyroidism: Continue levothyroxine. Appreciate TSH. DNR/DNI Advance to regular diet Famotidine for PUD prophylaxis Started on aspirin 325 mg daily by orthopedics for DVT prophylaxis. Discharge planning: Discussed in detail with patient family members at bedside. Patient lives by herself currently at [facility]. Family would want her to go to rehab for a short while. 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 Attestations Medical Necessity Statement*: Requires further hospitalization for postoperative care for ORIF, postoperative anemia, LUKE on CKD while safe discharge planning to SNF is sought Diagnoses Closed left femoral fracture S72.92XA Acute kidney injury N17.9 Postoperative anemia D64.9 Closed left humeral fracture S42.302A Accidental fall W19.XXXA Dementia F03.90 Contusion of face, scalp and neck S00.83XA; S00.03XA; S10.93XA Goals of care, counseling/discussion Z71.89
[2023-07-13 17:01] LABS: SARS Covid-2 Antigen negative (Negative)
--- NOTE | 2023-07-13 17:15 | P.PN_ITS ---
Subjective 2 Subjective: Patient is seen in her room today. She is [facility] to maximize her recovery following surgical neck fracture on the left and left intertrochanteric hip fracture which required operative intervention. She remains confused. Medications: Reviewed: Yes Vitals/I&O/Wt Last Vital Signs Temp 98.1 F 07/13/23 16:15 Pulse 76 07/13/23 16:15 Resp 16 07/13/23 16:15 BP 164/63 07/13/23 16:15 Pulse Ox 99 07/13/23 16:15 O2 Del Method Room Air 07/13/23 11:28 07/13/23 07/13/23 07/13/23 06:59 14:59 22:59 Intake Total 1120 / 1120 350 / 1470 Output Total 350 / 350 1200 / 1200 400 / 1600 Balance -350 / 1622 -80 / -80 -50 / -130 Weight last 48 hrs Weight 140 lb Physical Exam 2 Const: COMMON NORMALS: no acute distress, average body habitus, patient oriented x3 and alert GENERAL APPEARANCE: cooperative and comfortable O RIENTATION/CONSCIOUSNESS: Yes awake HENMT: COMMON NORMALS: normocephalic and atraumatic HEAD & SCALP: n ormocephalic and atraumatic Eye: GENERAL EYE: appearance normal, both eyes and all related structures Chest: COMMONS NORMALS: normal inspection of the chest Resp: COMMON NORMALS: normal respiratory effort EFFORT & INSPECTION: Yes able to speak in complete sentences and Yes symmetric chest movement Extremity: LEFT LOWER EXTREMITY: Yes hip joint (Dressing is dry and intact. ) Left hip: Yes inspection (No swelling or ecchymosis), Yes palpation (Minimal discomfort), Yes ROM (Not evaluated) and Yes neurovascular exam (Intact distally) Neuro: COMMON NORMALS: patient oriented x3 SENSORIUM/ORIENTATION: Yes alert Psych: COMMON NORMALS: mental status grossly normal APPEARANCE: Yes grossly normal ATTITUDE: Yes calm and Yes engaged ATTENTION/CONCENTRATION: Yes attention grossly intact Skin: COMMON NORMALS: no rashes or lesions noted GENERAL SKIN EXAM: no rashes or lesions noted Urinary Catheter Management: Hilliard: Cath Placed During This Visit: yes, but has since been removed by the nurse Reason for Continuing Indwelling Catheter: Perioperative Use in Selected Surgeries Urinary Catheter Date of Insertion: 07/11/23 Urinary Catheter Time of Insertion: 10:52 Date Urinary Catheter Removed: 07/12/23 Time Urinary Catheter Discontinued: 06:30 Data 07/14/23 05:19 07/14/23 05:19 A&P Assessment and plan (1) Closed intertrochanteric fracture of left hip: Patient presented to the emergency room after a fall at approximately 4 AM the day of surgery. There was no reason for her fall, but she got out of bed stating she had to go somewhere. The patient suffers with dementia. She was admitted through the emergency room with complaints of both left shoulder and hip pain. She was unable to ambulate. She also had contusions of the face scalp and neck. Upon evaluation, the patient was found to have a left intertrochanteric hip fracture with minimal angulation and displacement. Additionally, she had a proximal humerus fracture involving the surgical neck with displacement. Patient was taken on the day of admission to the operating room for open reduction internal fixation of her left intertrochanteric hip fracture. Her shoulder fracture will be treated nonoperatively in a shoulder immobilizer, and this has been discussed with the patient's family. The patient has been approved for transfer to jail. This will hopefully optimize her recovery from her shoulder and hip fracture on the left. Certainly, the shoulder will complicate her hip recovery if she will have to be nonweightbearing on the left shoulder. Qualifiers: Encounter type: initial encounter Fracture alignment: displaced Qualified Code(s): S72.142A - Displaced intertrochanteric fracture of left femur, initial encounter for closed fracture (2) Fracture of surgical neck of left humerus: Qualifiers: Encounter type: initial encounter Fracture type: closed Fracture morphology: unspecified fracture morphology Fracture alignment: displaced Qualified Code(s): S42.212A - Unspecified displaced fracture of surgical neck of left humerus, initial encounter for closed fracture Attestations 2 Medical Necessity Statement*: Awaiting placement to jail. Coding Level of Care Code Acute Code for [facility] Fwd Diagnoses Closed displaced intertrochanteric fracture of left femur, initial encounter S72.142A Encounter type: initial encounter Fracture alignment: displaced Closed displaced fracture of surgical neck of left humerus, unspecified fracture morphology, initial encounter S42.212A Encounter type: initial encounter Fracture type: closed Fracture morphology: unspecified fracture morphology Fracture alignment: displaced
[2023-07-13] MEDS: mirtazapine 15 mg Tablet PO (21:51)
[2023-07-13] MEDS: latanoprost 0.005% Op Soln 2.5 mL Btl 1 DROP EYE-BOTH (21:51)
[2023-07-14] VITALS: BP 140/60; PULSE 76; RESP 18; TEMP 36.8; O2SAT 96
[2023-07-14 04:36] VITALS: BP 140/68; PULSE 77; RESP 18; TEMP 36.8; O2SAT 98
[2023-07-14] MEDS: levothyroxine 25 mcg Tablet PO (05:01)
[2023-07-14 05:59] VITALS: BMI 23.3
[2023-07-14 08:33] VITALS: BP 168/71; PULSE 77; RESP 18; TEMP 36.4; O2SAT 96
[2023-07-14] MEDS: cyanocobalamin 1,000 mcg Tablet 2500 MCG PO (09:30)
[2023-07-14] MEDS: aspirin 325 mg EC Tablet PO (09:30)
[2023-07-14] MEDS: amlodipine 5 mg Tablet PO (09:30)
[2023-07-14] MEDS: acetaminophen 500 mg Tablet 1000 MG PO (09:30)
[2023-07-14] MEDS: anastrozole 1 mg Tablet PO (09:31)
[2023-07-14 09:34] LABS: Basophils % 0.1 %; Eosinophils # 0.2 10^3/uL (0.0-0.8); Eosinophils % 2.7 %; Hematocrit 28.7 % (36-47); Lymphocytes # 0.8 10^3/uL (0.8-4.8); Lymphocytes % 10.8 %; Mean Corpuscular HGB Conc 32.1 g/dL (30-55); Mean Corpuscular Hemoglobin 29.1 pg (27-33); Mean Corpuscular Volume 90.8 fl (85-98); Mean Platelet Volume 9.6 fL (7.4-10.4); Monocytes # 0.7 10^3/uL (0.2-0.9); Monocytes % 9.3 %; Neutrophils # 5.67 10^3/uL (1.8-7.7); Neutrophils % 75.8 %; Nucleated Red Blood Cells % 0 %; Platelet Count 154 10^3/cmm (157-399); Red Blood Count 3.16 10^6/uL (3.85-5.65); Red Cell Distribution Width 14.3 % (12.1-15.1); White Blood Count 7.49 10^3/uL (3.29-11.43)
[2023-07-14 09:42] LABS: Alanine Aminotransferase < 5 U/L (0-33); Albumin Level 3.1 g/dL (3.5-5.2); Alkaline Phosphatase 71 U/L (35-105); Anion Gap 13.5 (5-19); Aspartate Amino Transferase 35 U/L (0-32); Blood Urea Nitrogen 38 mg/dL (8-23); Calcium 8.8 mg/dL (8.5-10.5); Carbon Dioxide 23 mmol/L (22-29); Chloride 105 mmol/L (98-107); Globulin 2.2 g/dL (1.3-4.6); Glucose 134 mg/dL (65-115); Osmolality Calculated 295 mOsm/kg (285-295); Potassium 4.5 mmol/L (3.5-5.1); Sodium 137 mmol/L (136-145); Total Bilirubin 0.6 mg/dL (0.15-1.2); Total Protein 5.3 g/dL (6.6-8.7)
--- NOTE | 2023-07-14 10:38 | P.DS_ITS ---
Discharge Providers Date of Admission: 07/11/23 08:27 Date of Discharge: July 14, 2023 Attending Provider at Admission: Nathan Phillip Attending Provider at Discharge: Thomas Sparks MD Consults: Orthopedics: Dr. Chau. Primary Care Provider: Romeo Anderson DO Diagnoses at Discharge Discharge Diagnosis (1) Closed intertrochanteric fracture of left hip: Status: Acute Qualifiers: Encounter type: initial encounter Fracture alignment: displaced Qualified Code(s): S72.142A - Displaced intertrochanteric fracture of left femur, initial encounter for closed fracture (2) Fracture of surgical neck of left humerus: Status: Acute Qualifiers: Encounter type: initial encounter Fracture alignment: displaced Fracture morphology: unspecified fracture morphology Fracture type: closed Qualified Code(s): S42.212A - Unspecified displaced fracture of surgical neck of left humerus, initial encounter for closed fracture Reason for Visit Reason for Visit: FALL Brief History: History as per HPI: 87-year-old [facility] resident wit h remote history of colon cancer, colon resection, dementia, HTN, hypothyroidism, other medical problems fell around 4 AM this morning with severe left-sided hip pain, left arm pain, she states that she was trying to get out of bed because she had to go somewhere and seems that when the fall occurred. She states that had some lightheadedness in the past but not this time, no other recent new developments in her health. Has not been short of breath, no chest pain or pressure. Ambulation on flat ground is usually not limited by any dyspnea or chest pain or pressure. In ER she is found to have intertrochanteric left hip fracture as well as left humeral neck fracture. Hospital Course Hospital Course Patient was admitted to the hospital further evaluation and management of hip fracture. Orthopedics was consulted and she underwent ORIF. Her postoperative care was complicated by her developing anemia for which she required blood transfusion. Patient also developed acute kidney injury for which medical reconciliation was done and she was started on IV fluids. Patient has progressively improved and her hemoglobin has remained stable. Patient's kidney functions are back to her baseline. Safe discharge plan was discussed in detail with the patient and her family. Family decided for SNF placement for rehabitation. She is discharged in medically stable condition. Physical Exam Narrative: Accompanied by family. Const: COMMON NORMALS: patient oriented x3 and alert GENERAL APPEARANCE: cooperative ORIENTATION/CONSCIOUSNESS: Yes awake HENMT: COMMON NORMALS: oropharynx normal Neck/C-Spine: COMMON NORMALS: no JVD Resp: COMMON NORMALS: normal respiratory effort and clear to auscultation bilaterally AUSCULTATION: clear to auscultation bilaterally Cardio: COMMON NORMALS: no JVD, regular rhythm, S1 normal heart sound present, S2 normal heart sound present and No murmurs present (Cardio) RHYTHM: regular rhythm HEART SOUNDS: S1 normal heart sound present and S2 normal heart sound present GI: COMMON NORMALS: Normal to inspection, nondistended, normoactive bowel sounds present, Soft to palpation and non-tender PALPATION: Yes Soft to palpation Extremity: COMMON NORMALS: no joint enlargement and no pedal edema NARRATIVE EXTREMITY EXAM: Antalgic positioning left arm, left leg Neuro: COMMON NORMALS: patient oriented x3 and moves all extremities SENSORIUM/ORIENTATION: Yes alert Skin: COMMON NORMALS: no rashes or lesions noted GENERAL SKIN EXAM: no rashes or lesions noted Urinary Catheter Management: [place]: Cath Placed During This Visit: yes, but has since been removed by the nurse Reason for Continuing Indwelling Catheter: Perioperative Use in Selected Surgeries Urinary Catheter Date of Insertion: 07/11/23 Urinary Catheter Time of Insertion: 10:52 Date Urinary Catheter Removed: 07/12/23 Time Urinary Catheter Discontinued: 06:30 Discharge Data Studies Completed and Pending Completed Studies During Hospitalization Category Date Time Status CT head wo con* [id number] Stat Cat Scan 07/11/23 06:55 Completed CXRP [XR chest 1V portable [id number]] Stat Exams 07/11/23 07:31 Completed XR hip BI 3-4V wo/w pel [id number] Stat Exams 07/11/23 06:55 Completed XR hip LT 2-3V wo/w pel* [id number] Routine Exams 07/11/23 Completed XR shoulder LT min 2V* [id number] Stat Exams 07/11/23 06:55 Completed US renal doppler [CV renal doppler [id number]] Routine Ultrasound 07/13/23 10:11 Completed Pending at discharge Category Date Time Status MAG [Magnesium] AM LABS Lab 07/15/23 04:00 Ordered Radiology Impressions Head CT 07/11/23 06:55 IMPRESSION: [id number] small vessel disease. No evidence of acute intracranial process. Hip/Pelvis X-Ray 07/11/23 06:55 IMPRESSION: Acute left hip intratrochanteric fracture. Shoulder X-Ray 07/11/23 06:55 IMPRESSION: Displaced left humeral neck fracture. Chest X-Ray 07/11/23 07:31 IMPRESSION: No acute pulmonary process. Laboratory Results WBC 7.49 10^3/uL (3.29-11.43) 07/14/23 05:19 RBC 3.16 10^6/uL (3.85-5.65) L 07/14/23 05:19 Hgb 9.20 g/dL (11.27-16.99) L D 07/14/23 05:19 Hct 28.7 % (36-47) L D 07/14/23 05:19 MCV 90.8 fl (85-98) 07/14/23 05:19 MCH 29.1 pg (27-33) 07/14/23 05:19 MCHC 32.1 g/dL (30-55) 07/14/23 05:19 RDW 14.3 % (12.1-15.1) 07/14/23 05:19 Plt Count 154 10^3/cmm (157-399) L 07/14/23 05:19 MPV 9.6 fL (7.4-10.4) 07/14/23 05:19 Neut % (Auto) 75.8 % 07/14/23 05:19 Lymph % (Auto) 10.8 % 07/14/23 05:19 [place] % (Auto) 9.3 % 07/14/23 05:19 Eos % (Auto) 2.7 % 07/14/23 05:19 Baso % (Auto) 0.1 % 07/14/23 05:19 Neut # (Auto) 5.67 10^3/uL (1.8-7.7) 07/14/23 05:19 Lymph # (Auto) 0.8 10^3/uL (0.8-4.8) 07/14/23 05:19 [place] # (Auto) 0.7 10^3/uL (0.2-0.9) 07/14/23 05:19 Eos # (Auto) 0.2 10^3/uL (0.0-0.8) 07/14/23 05:19 Baso # (Auto) 0.0 10^3/uL (0.0-0.1) 07/14/23 05:19 Nucleated RBC % (auto) 0 % 07/14/23 05:19 Nucleated RBCs # 0.0 /100WBC 07/14/23 05:19 PT 13.90 SECONDS (12.1-14.9) 07/11/23 08:41 INR 1.04 (0.8-1.2) 07/11/23 08:41 APTT 25.2 SECONDS (23.9-36.7) 07/11/23 08:41 Sodium 137 mmol/L (136-145) 07/14/23 05:19 Potassium 4.5 mmol/L (3.5-5.1) 07/14/23 05:19 Chloride 105 mmol/L (98-107) 07/14/23 05:19 Carbon Dioxide 23 mmol/L (22-29) 07/14/23 05:19 Anion Gap 13.5 (5-19) 07/14/23 05:19 BUN 38 mg/dL (8-23) H 07/14/23 05:19 Creatinine 1.1 mg/dL (0.5-0.9) H 07/14/23 05:19 GFR Calculation Not Reportable 07/14/23 05:19 Glucose 134 mg/dL (65-115) H 07/14/23 05:19 Estimat Average Glucose 103 07/13/23 05:20 Hemoglobin A1c 5.2 % (4.0-6.0) 07/13/23 05:20 Calculated Osmolality 295 mOsm/kg (285-295) 07/14/23 05:19 Calcium 8.8 mg/dL (8.5-10.5) 07/14/23 05:19 Magnesium 2.0 mg/dL (1.7-2.3) 07/14/23 05:19 Iron 45 ug/dL (37-145) 07/11/23 08:41 TIBC 248 mcg/dl 07/11/23 08:41 % Saturation 18.1 % (20-50) L 07/11/23 08:41 Unsat Iron Binding 203 ug/dL (112-347) 07/11/23 08:41 Total Bilirubin 0.6 mg/dL (0.15-1.2) 07/14/23 05:19 AST 35 U/L (0-32) H 07/14/23 05:19 ALT < 5 U/L (0-33) 07/14/23 05:19 Alkaline Phosphatase 71 U/L (35-105) 07/14/23 05:19 Total Protein 5.3 g/dL (6.6-8.7) L 07/14/23 05:19 Albumin 3.1 g/dL (3.5-5.2) L 07/14/23 05:19 Globulin 2.2 g/dL (1.3-4.6) 07/14/23 05:19 Triglycerides 90 mg/dL (0-150) 07/13/23 05:20 Cholesterol 109 mg/dL (0-200) 07/13/23 05:20 LDL Cholesterol, Calc 43 mg/dL (50-129) L 07/13/23 05:20 Total VLDL Cholesterol 18 mg/dL (0-30) 07/13/23 05:20 HDL Cholesterol 48 mg/dL (60-100) L 07/13/23 05:20 Cholesterol/HDL Ratio 2.27 mg/dL (0.0-4.40) 07/13/23 05:20 Vitamin B12 1893 pg/mL (232-1245) H 07/11/23 08:41 Folate 8.7 ng/mL (4.8-37.3) 07/13/23 05:20 TSH 2.69 uIU/mL (0.27-4.20) 07/11/23 08:41 Urine Color Straw (Yellow) 07/11/23 10:19 Urine Appearance Clear (CLEAR) 07/11/23 10:19 Urine pH 5 (5-7) 07/11/23 10:19 Ur Specific [place] 1.015 (1.005-1.030) 07/11/23 10:19 Urine Protein Neg (Negative) 07/11/23 10:19 Urine Glucose (UA) Norm (Normal) 07/11/23 10:19 Urine Ketones 1+ (Negative) H 07/11/23 10:19 Urine Blood Neg (Negative) 07/11/23 10:19 Urine Nitrate Negative (Negative) 07/11/23 10:19 Urine Bilirubin Neg (Negative) 07/11/23 10:19 Urine Urobilinogen Norm mg/dL (Negative) 07/11/23 10:19 Ur Leukocyte Esterase Negative (Negative) 07/11/23 10:19 SARS-CoV-2 Ag (Rapid) negative (Negative) 07/13/23 16:30 Blood Type O Positive 07/13/23 10:40 Rho(D) Type Rh positive 07/13/23 10:40 Antibody Screen Negative 07/13/23 10:40 Crossmatch See Detail 07/13/23 10:40 Vitals Last Vital Signs Temp 97.6 F 07/14/23 08:33 Pulse 77 07/14/23 08:33 Resp 18 07/14/23 08:33 BP 168/71 07/14/23 08:33 Pulse Ox 96 07/14/23 08:33 O2 Del Method Room Air 07/13/23 11:28 Discharge Plan Discharge Patient Disposition: Home Condition: Stable Prescriptions: New amlodipine 5 mg Tablet 10 mg PO DAILY 30 Days Qty: 60 0RF aspirin 325 mg Tablet,Delayed Release (Dr/Ec) 325 mg PO DAILY Qty: 20 0RF Protonix 40 mg tablet,delayed release (DR/EC) 40 mg PO DAILY 28 Days Qty: 30 0RF oxycodone 5 mg Tablet 5 mg PO Q6H PRN (Reason: Moderate To Severe Pain) 7 Days Qty: 30 0RF Continued acetaminophen 500 mg capsule See Rx Instructions .ROUTE .COMPLEX PRN (Reason: Pain) Rx Instructions: 1,000 mg orally every 4 to 6 hours as needed for pain cyanocobalamin (vitamin B-12) [Vitamin B-12] 1,000 mcg tablet 2,500 mcg PO DAILY Colace 100 mg capsule 100 mg PO BID PRN (Reason: constipation) anastrozole 1 mg tablet 1 mg PO DAILY latanoprost 0.005 % drops 1 drp ophthalmic (eye) BEDTIME magnesium oxide 250 mg magnesium tablet 250 mg PO DAILY multivitamin Tablet 1 tab PO DAILY levothyroxine 25 mcg tablet 25 mcg PO QAM diclofenac sodium 1 % Gel See Rx Instructions .ROUTE .COMPLEX Rx Instructions: APPLY NICKEL SIZE AMOUNT TO BOTH HANDS TWICE DAILY NEEDED FOR PAIN mirtazapine 15 mg tablet 15 mg PO BEDTIME Discontinued lisinopril-hydrochlorothiazide 20-12.5 mg tablet 2 tab PO BID meloxicam 15 mg tablet 15 mg PO DAILY Discharge Orders: Discharge Order (Routine); Ordered 07/14/23 Ordered By: Thomas Sparks Referrals: Romeo Anderson DO [Primary Care Provider] - 07/20/23 9:30 am Yandy Chau MD [Physician] - 07/28/23 8:30 am Discharge Activity: Limit activity as instructed, Use walker/crutches as i nstructed and As per PT/OT instructions Patient Instructions: Aspirin (By mouth), Oxycodone, Rapid Release (By mouth), Amlodipine (By mouth), Pantoprazole (By mouth), Opioid Safety, Pain Management Activity Restrictions/Additional Instructions: Patient may weight-bear as tolerated on left lower extremity for ambulation, gait training, and strengthening. No weightbearing on left upper extremity secondary to fracture of the surgical neck of the left humerus. Ice to both areas as needed. Follow-up in my office as scheduled. She has been discharged on aspirin 325 mg daily for DVT prophylaxis. Antihypertensives has been changed. Do not take combination of losartan hydrochlorothiazide anymore. Instead amlodipine 5 mg daily has been added. Please check your blood pressure daily and maintain a blood pressure diary, follow-up with a primary care provider within next 1 week for further adjustment of antihypertensive. Discharge Attestations Time Spent in Discharge Care*: greater than 30 min Specific Discharge Activities: educating and/or supporting family/caregiver, discussing with pcp/other providers, discussing with lead case manager/social workers/dc planners and documenting/other paperwork Quality Metrics Clinical Quality Measures [ No reported AMI, CVA or VTE this stay] Coding Level of Care Code 76967 Total time (in minutes) for Discharge: 60 Diagnoses Closed displaced intertrochanteric fracture of left femur, initial encounter S72.142A Encounter type: initial encounter Fracture alignment: displaced Closed displaced fracture of surgical neck of left humerus, unspecified fracture morphology, initial encounter S42.212A Encounter type: initial encounter Fracture alignment: displaced Fracture morphology: unspecified fracture morphology Fracture type: closed
[2023-07-14 10:59] VITALS: RESP 16
[2023-07-14] MEDS: oxyCODONE 5 mg IR Tab/Cap PO (10:59)
--- NOTE | 2023-07-14 12:36 | PC.NURSE ---
Report called to Yulia at [facility]
[2023-07-14 12:43] VITALS: BP 163/75; PULSE 94; RESP 19; TEMP 36.7; O2SAT 96
[2023-07-14 13:19] VITALS: BP 163/75; PULSE 94; RESP 19; TEMP 36.7; O2SAT 96
== END 2023-07-14 13:20 | disposition skilled nursing facility (03) | DRG 481 ==
LOC: ER 09:16 → MEDSURG 09:46
PROVIDERS: Specialist; Admitting Provider Internal Medicine; Emergency Provider Internal Medicine; PCP Family Medicine; Visit Provider Student in an Organized Health Care Education/Training Program
PROC: 0QS704Z Reposition Left Upper Femur with Internal Fixation Device, Open Approach (ICD-10-PCS; CPT 27245; principal; 2023-07-11 11:30)
DX: S72.142A Displaced intertrochanteric fracture of left femur, initial encounter for closed fracture (principal); N17.9 Acute kidney failure, unspecified; S42.212A Unspecified displaced fracture of surgical neck of left humerus, initial encounter for closed fracture; W06.XXXA Fall from bed, initial encounter; Y92.122 Bedroom in nursing home as the place of occurrence of the external cause; F03.90 Unspecified dementia, unspecified severity, without behavioral disturbance, psychotic disturbance, mood disturbance, and anxiety; E03.9 Hypothyroidism, unspecified; R91.1 Solitary pulmonary nodule; D64.9 Anemia, unspecified; I12.9 Hypertensive chronic kidney disease with stage 1 through stage 4 chronic kidney disease, or unspecified chronic kidney disease; N18.9 Chronic kidney disease, unspecified; S00.83XA Contusion of other part of head, initial encounter; S00.03XA Contusion of scalp, initial encounter; S10.93XA Contusion of unspecified part of neck, initial encounter
CPT/HCPCS: 36415; 36430; 51702; 70450; 71045; 73030; 73502; 73522; 76000; 80053; 80061; 81003; 82607; 82746; 83036; 83540; 83550; 83735; 84443; 85025; 85610; 85730; 86850; 86900; 86920; 87426; 93005; 93010; 93975; 96374; 97110; 97116; 97161; 97167; 97530; 97535; 99285; C1713; C1776; J0131; J0690; J1100; J2405; J2704; J3010; J3490; J7030; J8999; P9016

== ENCOUNTER → 2023-07-28 14:14 | Outpatient (BNVA) | payer OTHER, SELFPAY | PROVIDERS: PCP Family Medicine; Visit Provider Specialist | DX: Z09 Encounter for follow-up examination after completed treatment for conditions other than malignant neoplasm; S42.212D Unspecified displaced fracture of surgical neck of left humerus, subsequent encounter for fracture with routine healing; S72.142D Displaced intertrochanteric fracture of left femur, subsequent encounter for closed fracture with routine healing; X58.XXXD Exposure to other specified factors, subsequent encounter | CPT/HCPCS: 73030; 73502; 99024 ==

== ENCOUNTER → 2023-09-08 15:25 | Outpatient (BNVA) | payer MEDICARE, SELFPAY | PROVIDERS: PCP Family Medicine; Visit Provider Specialist | DX: S42.212A Unspecified displaced fracture of surgical neck of left humerus, initial encounter for closed fracture; S72.142A Displaced intertrochanteric fracture of left femur, initial encounter for closed fracture; X58.XXXA Exposure to other specified factors, initial encounter | CPT/HCPCS: 73030; 73502; 99024 ==

== ENCOUNTER 2023-10-14 14:15 | Outpatient (CLI) | payer OTHER, SELFPAY ==
[2023-10-14 14:43] LABS: Basophils % 0.2 %; Eosinophils # 0.2 10^3/uL (0.0-0.8); Eosinophils % 2.8 %; Hematocrit 39.1 % (36-47); Lymphocytes # 1.1 10^3/uL (0.8-4.8); Lymphocytes % 18.4 %; Mean Corpuscular HGB Conc 30.4 g/dL (30-55); Mean Corpuscular Hemoglobin 26.9 pg (27-33); Mean Corpuscular Volume 88.5 fl (85-98); Mean Platelet Volume 8.9 fL (7.4-10.4); Monocytes # 0.4 10^3/uL (0.2-0.9); Neutrophils # 4.06 10^3/uL (1.8-7.7); Neutrophils % 71.2 %; Nucleated Red Blood Cells % 0 %; Platelet Count 255 10^3/cmm (157-399); Red Blood Count 4.42 10^6/uL (3.85-5.65); Red Cell Distribution Width 14.4 % (12.1-15.1)
[2023-10-14 15:06] LABS: Estmated Average Glucose 103; Hemoglobin A1C 5.2 % (4.0-6.0)
[2023-10-14 15:15] LABS: Alanine Aminotransferase 9 U/L (0-33); Albumin Level 4.1 g/dL (3.5-5.2); Alkaline Phosphatase 146 U/L (35-105); Aspartate Amino Transferase 17 U/L (0-32); Blood Urea Nitrogen 25 mg/dL (8-23); Calcium 9.4 mg/dL (8.5-10.5); Carbon Dioxide 25 mmol/L (22-29); Chloride 104 mmol/L (98-107); Chol HDL Ratio 2.38 mg/dL (0.0-4.40); Cholesterol 174 mg/dL (0-200); Globulin 2.9 g/dL (1.3-4.6); Glucose 109 mg/dL (65-115); HDL Cholesterol 73 mg/dL (60-100); LDL Cholesterol Calculated 75 mg/dL (50-129); LDL HDL Ratio 1.03 RATIO (0.00-3.22); Magnesium 2.1 mg/dL (1.7-2.3); Osmolality Calculated 295 mOsm/kg (285-295); Phosphorus 3.5 mg/dL (2.5-4.5); Sodium 140 mmol/L (136-145); Thyroid Stimulating Hormone 2.55 uIU/mL (0.27-4.20); Total Bilirubin 0.2 mg/dL (0.15-1.2); Triglycerides 129 mg/dL (0-150)
[2023-10-14 17:24] LABS: Anion Gap 14.2 (5-19); Potassium 4.2 mmol/L (3.5-5.1)
[2023-10-14 19:48] LABS: Vitamin B12 > 2000 pg/mL (232-1245)
== END 2023-10-14 14:16 | disposition home or self-care (01) ==
PROVIDERS: PCP Family Medicine; Visit Provider Family Medicine
DX: E11.9 Type 2 diabetes mellitus without complications (principal); I10 Essential (primary) hypertension; E03.9 Hypothyroidism, unspecified
CPT/HCPCS: 80053; 80061; 82607; 83036; 83735; 84100; 84443; 85025

== ENCOUNTER 2023-10-27 13:44 | Oncology outpatient (recurring) (ONCR) | payer MEDICARE, SELFPAY | END 2023-11-14 23:59 | disposition home or self-care (01) | PROVIDERS: PCP Family Medicine; Visit Provider Internal Medicine Medical Oncology | DX: C50.811 Malignant neoplasm of overlapping sites of right female breast (principal); Z17.0 Estrogen receptor positive status [ER+]; Z90.11 Acquired absence of right breast and nipple; Z79.818 Long term (current) use of other agents affecting estrogen receptors and estrogen levels; Z79.899 Other long term (current) drug therapy; Z85.038 Personal history of other malignant neoplasm of large intestine; Z85.118 Personal history of other malignant neoplasm of bronchus and lung | CPT/HCPCS: 99213 ==

== ENCOUNTER 2024-05-03 14:28 | Oncology outpatient (recurring) (ONCR) | payer MEDICARE, SELFPAY | END 2024-05-15 23:59 | disposition home or self-care (01) | LOC: ONCMED 14:28 | PROVIDERS: PCP Family Medicine; Visit Provider Internal Medicine Medical Oncology | DX: C18.0 Malignant neoplasm of cecum (principal); C50.911 Malignant neoplasm of unspecified site of right female breast; R91.8 Other nonspecific abnormal finding of lung field | CPT/HCPCS: 99214 ==

== ENCOUNTER 2025-03-03 10:57 | Outpatient (CLI) | payer MEDICARE, SELFPAY ==
[2025-03-03 11:42] LABS: Hematocrit 40.6 % (36-47); Hemoglobin 12.10 g/dL (11.27-16.99); Mean Corpuscular HGB Conc 29.8 g/dL (30-55); Mean Corpuscular Hemoglobin 27.4 pg (27-33); Mean Corpuscular Volume 91.9 fl (85-98); Nucleated Red Blood Cells % 0 %; Platelet Count 298 10^3/cmm (157-399); Red Blood Count 4.42 10^6/uL (3.85-5.65); White Blood Count 6.24 10^3/uL (3.29-11.43)
[2025-03-03 12:15] LABS: Alanine Aminotransferase 18 U/L (0-33); Albumin Level 4.2 g/dL (3.5-5.2); Alkaline Phosphatase 126 U/L (35-105); Blood Urea Nitrogen 40 mg/dL (8-23); Calcium 9.6 mg/dL (8.5-10.5); Carbon Dioxide 21 mmol/L (22-29); Chloride 103 mmol/L (98-107); Cholesterol 196 mg/dL (0-200); Globulin 2.7 g/dL (1.3-4.6); Glucose 89 mg/dL (65-115); HDL Cholesterol 62 mg/dL (60-100); Osmolality Calculated 303 mOsm/kg (285-295); Sodium 142 mmol/L (136-145); Thyroid Stimulating Hormone 3.48 uIU/mL (0.27-4.20); Total Protein 6.9 g/dL (6.6-8.7); Triglycerides 107 mg/dL (0-150)
[2025-03-03 12:30] LABS: Anion Gap 22.3 (5-19); Aspartate Amino Transferase 23 U/L (0-32); Potassium 4.3 mmol/L (3.5-5.1)
== END 2025-03-03 10:58 | disposition home or self-care (01) ==
LOC: LAB 11:01
PROVIDERS: PCP Family Medicine; Visit Provider Family Medicine
DX: E11.9 Type 2 diabetes mellitus without complications (principal); I10 Essential (primary) hypertension
CPT/HCPCS: 80053; 80061; 84443; 85025

== ENCOUNTER 2025-03-28 14:14 | Outpatient (CLI) | payer MEDICARE, SELFPAY ==
[2025-03-28 14:50] LABS: Glucose Urine UA Negative (Normal); Nitrate Urine Negative (Negative); Specific Gravity, Urine 1.021 (1.005-1.030)
[2025-03-28 15:06] LABS: Add Urine Microscopic? YES
== END 2025-03-28 14:15 | disposition home or self-care (01) ==
PROVIDERS: PCP Family Medicine; Visit Provider Family Medicine
DX: N39.0 Urinary tract infection, site not specified (principal)
CPT/HCPCS: 81001; 87086

== ENCOUNTER 2025-04-15 17:27 | Emergency (ER) | payer MEDICARE, SELFPAY ==
[2025-04-15 17:28] VITALS: BP 172/103; PULSE 72; RESP 18; TEMP 36.6; O2SAT 97
--- NOTE | 2025-04-15 17:34 | CTR_ITS ---
PROCEDURE INFORMATION: Exam: CT Head Without Contrast Exam date and time: 04/15/2025 5:54 PM Age: 89 years old Clinical indication: Injury or trauma; Blunt trauma (contusions or hematomas); EMS arrival from care home for unwitnessed fall. History of dementia. ; Additional info: Fall/unk head injury TECHNIQUE: Imaging protocol: Computed tomography of the head without contrast. Total images: 1050 Radiation optimization: All CT scans at this facility use at least one of these dose optimization techniques: automated exposure control; mA and/or kV adjustment per patient size (includes targeted exams where dose is matched to clinical indication); or iterative reconstruction. COMPARISON: 1. CT head wo con* [id number] 07/11/2023 7:[address] head wo con* [id number] 05/14/2022 12:32 PM RADIATION DOSE METRICS: Total DLP (mGy-cm): 888.99 FINDINGS: Brain: No intracranial hemorrhage. Brain global parenchymal volume loss. Periventricular white matter hypoattenuation is nonspecific but most likely due to small vessel disease. No evidence of acute territorial infarct or cerebral edema. No mass effect or midline shift. Cerebral ventricles: Prominent ventricles likely secondary to volume loss. Paranasal sinuses: Paranasal sinuses demonstrate ethmoid air cell areas of mucosal thickening characteristic of chronic sinus disease. No sinus air-fluid levels. Mastoid air cells: Right uncomplicated otomastoiditis. Left uncomplicated mastoiditis. Orbital cavities: Thinning of the lenses of the globes consistent with prior lens surgery. Teeth: The patient is edentulous. Bones: Temporomandibular joint (TMJ) moderate degeneration. 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 Soft tissues: Few scalp nonspecific calcifications. Vasculature: Bilateral carotid siphon mild atheromatous calcific plaque without specific manifestations of major vessel occlusion. CT/CT head wo con* [id number] IMPRESSION: 1. No acute intracranial findings. 2. Bilateral mastoid and right tympanic cavity fluid suggesting uncomplicated otomastoiditis. 3. Mild ethmoid chronic sinus disease. COMMENTS: Please see CT spine cervical regarding additional findings.
--- NOTE | 2025-04-15 17:35 | CTR_ITS ---
PROCEDURE INFORMATION: Exam: CT Cervical Spine Without Contrast Exam date and time: 04/15/2025 5:54 PM Age: 89 years old Clinical indication: Injury or trauma; Fall; Blunt trauma; Additional info: Fall/unk head inj TECHNIQUE: Imaging protocol: Computed tomography of the cervical spine without contrast. Total images: 190 Radiation optimization: All CT scans at this facility use at least one of these dose optimization techniques: automated exposure control; mA and/or kV adjustment per patient size (includes targeted exams where dose is matched to clinical indication); or iterative reconstruction. COMPARISON: 1. CT head wo con* [id number] 07/11/2023 7:[address] head wo con* [id number] 05/14/2022 12:32 PM RADIATION DOSE METRICS: Total DLP (mGy-cm): 188.6 FINDINGS: Bones: Stable right occipital calvarium outer table indolent appearing bony osteoma noted once again. Temporomandibular joint (TMJ) mild degeneration. Moderate generalized degenerative changes of the vertebral column characterized by multilevel osteophyte formation, degenerative disc height loss and facet arthrosis commensurate with patient's age. 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 C3-C4 mild multifactorial degenerative acquired stenosis of the spinal canal accompanied by severe disc height loss. C5-C6 moderate multifactorial degenerative acquired stenosis of the spinal canal and right neural foramina accompanied by severe degenerative disc height loss. Inferior pharyngeal pre-epiglottic fat pad is preserved. No acute displaced fracture, subluxation or dislocation. Mastoid air cells: Interval development subtotal bilateral mastoid air cell fluid opacification. No mastoid bony coalescent or destructive changes. Auditory system: Interval development of near-complete fluid opacification of the right tympanic cavity. Left external auditory canal debris likely represents excess cerumen (earwax). Pharynx: Nasopharyngeal lateral recesses and eustachian tubes appear normal. Superior parapharyngeal fat pads are symmetrical. Tonsillar pillars appear normal. Posterior pharyngeal wall is unremarkable. Salivary glands: The parotid and submandibular salivary glands are normal. Trachea: Lower airway, insofar as partially included within the field of view, reveals no internal filling defects, secretions or debris. Lungs: The visualized portions of the lung apices are normal. Esophagus: Thickening of the visualized distal esophagus. Thyroid: The thyroid gland is atrophic but otherwise normal. Left thyroid lobe coarse 7 mm calcification. Lymph nodes: No lymphadenopathy. Soft tissues: Soft tissues are normal as visualized, demonstrating no masses or induration. CT/CT cervical spin wo con* [id number] IMPRESSION: 1. No acute displaced fracture. 2. Generalized moderate skeletal degenerative and other chronic/nonacute findings as described above. 3. Interval development of uncomplicated right otomastoiditis and left mastoiditis. 4. Thickening of the visualized distal esophagus. Correlate for esophagitis though esophageal mass lesions are not well excluded on CT.
--- NOTE | 2025-04-15 17:37 | ED_ITS ---
HPI - Fall General: Chief Complaint: Fall Stated Complaint: head pain s/p fall Time Seen by Provider: 04/15/25 17:29 Source: EMS Mode of arrival: EMS Limitations: other (hx of dementia) History of Present Illness: Patient is an 89-year-old female with past medical history of dementia who presents the emergency department by ambulance from custodial due to unwitnessed fall. Staff had reported that they checked on the patient and she was standing up with her walker, and shortly after walking by her room noticed that she was on the floor, however was not unconscious. Unknown if she hit her head, though they do report a small bump behind her right ear. She does not use a blood thinner. She is at baseline mentation considering her dementia, and patient is not complaining of anything at this time. She is unable to provide any reliable review of systems secondary to her dementia, but it is noteworthy that she has ambulated without issue since the fall. Chronically ambulates with a walker. Patient has a history of hypertension, is hypertensive at this time however rest of her vitals are stable. Patient is a DNR. complaint: fall Onset (ago): minute(s) Fall from: standing Fall witnessed: yes, by living facility staff (heard by staff) Place fall occurred: custodial/SNF Loss of consciousness: None Prolonged down time: no Symptoms prior to fall: other (unknown) Context: tripped/slipped Location of injury: head (possibly) Related Data Home Medications ?Medication ?Instructions ?Recorded ?Confirmed acetaminophen 500 mg capsule See Rx Instructions .Rout e 12/02/20 05/03/24 .COMPLEX PRN Pain latanoprost 0.005 % eye drops 1 drp ophthalmic (eye) B EDTIME 11/15/21 05/03/24 magnesium oxide 250 mg PO DAILY 11/15/21 diclofenac sodium 1 % topical gel See Rx Instructions .Route .COMPLEX 07/11/23 05/03/24 mirtazapine 15 mg tablet 15 mg PO BEDTIME 07/11/23 Previous Rx's ?Medication ?Instructions ?Recorded anastrozole 1 mg tablet See Rx Instructions .Route 1 09/13/22 .COMPLEX #14 ea aspirin 325 mg tablet,delayed 325 mg PO DAILY #20 tabs 07/14/23 release cyanocobalamin (vitamin B-12) See Rx Instructions .Rou te 07/14/23 2,500 mcg sublingual tablet .COMPLEX #14 ea (Vitamin B-12) multivitamin See Rx Instructions .Route 1 09/13/22 .COMPLEX #14 ea docusate sodium 100 mg capsule See Rx Instructions .Ro lew 10/01/23 .COMPLEX #7 ea levothyroxine 25 mcg tablet See Rx Instructions .Route 10/01/23 .COMPLEX #14 ea urea 40 % topical cream 1 applic topical BID #28 gra ms 11/18/23 Allergies Allergy/AdvReac Type Severity Reaction Status Date / Time codeine Allergy Intermediate nausea Verified 05/03/24 14:42 Review of Systems General: Reports: ROS unobtainable due to mental status PFSH ED PFSH: Medical History Dementia Pulmonary nodules Adenocarcinoma of cecum Breast cancer, right Hypothyroidism Vitamin D deficiency History of colon cancer Hypertension Surgical History S/P right mastectomy (12/09/20) History of bilateral cataract extraction History of appendectomy History of cholecystectomy History of back surgery 2x History of colon resection History of hysterectomy History of colonoscopy Family History Other Cancer Dementia Diabetes Hyperlipidemia Hypertension Stroke Denies family history of CAD (coronary artery disease) Clotting disorder Psychiatric illness Chronic kidney disease (CKD) Suicide Anesthesia complication Bleeding disorder Lung disease Social History Smoking and tobacco/nicotine status: never used tobacco/nicotine Alcohol intake: never Physical Exam Const: COMMON NORMALS: no acute distress, healthy appearing, alert and well nourished GENERAL APPEARANCE: cooperative and comfortable ORIENTATION/CONSCIOUSNESS: Yes awake and Yes oriented to person OTHER: at baseline mentation, no acute distress HENMT: OTHER: Small bump to right temporal occipital region, question if this is acute or chronic. No other injuries to the face, head/scalp Eye: COMMON NORMALS: Equal, round and reactive pupils present, EOMs intact bilaterally and conjunctivae normal CONJUNCTIVA: Yes conjunctivae normal PUPIL: Yes Equal, round and reactive pupils present Neck/C-Spine: COMMON NORMALS: full ROM OTHER: No cervical tenderness to palpation. Full range of motion. No step-off deformity. Chest: COMMONS NORMALS: normal inspection of the chest and normal palpation of entire chest wall Resp: COMMON NORMALS: normal respiratory effort, No retractions, No use of accessory muscles and clear to auscultation bilaterally AUSCULTATION: clear to auscultation bilaterally Cardio: COMMON NORMALS: regular rate and regular rhythm RATE: regular rate RHYTHM: regular rhythm OTHER: 3/6 systolic ejection murmur GI: COMMON NORMALS: Normal to inspection, nondistended, normoactive bowel sounds present, Soft to palpation and non-tender PALPATION: Yes Soft to palpation Back/Pelvis: COMMON NORMALS: thoracic and lumbar spine normal to inspection and no thoracic nor lumbar tenderness Extremity: COMMON NORMALS: normal to inspection and full ROM NARRATIVE EXTREMITY EXAM: All of patient's joints and extremities are palpated and nontender. Specifically her hip joints as she has full range of motion at the hips without complication. Neuro: COMMON NORMALS: moves all extremities, no focal motor deficits and no sensory deficits noted SENSORIUM/ORIENTATION: Yes alert and Yes oriented to person Skin: COMMON NORMALS: no rashes or lesions noted GENERAL SKIN EXAM: no rashes or lesions noted Course Vital Signs: Vital signs: Vital Signs Temperature 97.8 F 04/15/25 17:28 Pulse Rate 72 04/15/25 18:31 Respiratory Rate 18 04/15/25 17:28 Blood Pressure 174/75 04/15/25 18:31 Pulse Oximetry 98 04/15/25 18:31 Oxygen Delivery Me thod Room Air 04/15/25 17:28 MDM - Fall Medical Decision Making Patient presented from custodial after fall that was heard by staff, unknown what she injured. She had no complaints with me, however there was concern of a head injury due to small questionable acute hematoma to the right posterior occipital temporal region. She was at baseline mentation after the fall as well as throughout her ED stay, and has even been ambulatory since falling. Head and neck CT were clear of any acute findings. EKG ordered and unremarkable, I suspect this was mechanical fall. She will be discharged back to custodial in stable condition. Lab Data Radiology Impressions Head CT 04/15/25 17:34 IMPRESSION: 1. No acute intracranial findings. 2. Bilateral mastoid and right tympanic cavity fluid suggesting uncomplicated otomastoiditis. 3. Mild ethmoid chronic sinus disease. COMMENTS: Please see CT spine cervical regarding additional findings. Cervical Spine CT 04/15/25 17:35 IMPRESSION: 1. No acute displaced fracture. 2. Generalized moderate skeletal degenerative and other chronic/nonacute findings as described above. 3. Interval development of uncomplicated right otomastoiditis and left mastoiditis. 4. Thickening of the visualized distal esophagus. Correlate for esophagitis though esophageal mass lesions are not well excluded on CT. All radiology interpretation(s) finalized by discharge Discharge Plan Discharge Patient Disposition: Home Clinical Impression: Fall Qualifiers: Encounter type: initial encounter Qualified Code(s): W19.XXXA - Unspecified fall, initial encounter CHI (closed head injury) Qualifiers: Encounter type: initial encounter Qualified Code(s): S09.90XA - Unspecified injury of head, initial encounter Condition: Stable Prescriptions: No Action acetaminophen 500 mg capsule See Rx Instructions .ROUTE .COMPLEX PRN (Reason: Pain) Rx Instructions: 1,000 mg orally every 4 to 6 hours as needed for pain latanoprost 0.005 % drops 1 drp ophthalmic (eye) BEDTIME magnesium oxide 250 mg magnesium tablet 250 mg PO DAILY cyanocobalamin (vitamin B-12) [Vitamin B-12] 2,500 mcg tablet, sublingual See Rx Instructions .ROUTE .COMPLEX Qty: 14 10RF Dose Instruction: TAKE 1 TABLET BY MOUTH DAILY Rx Instructions: TAKE 1 TABLET BY MOUTH DAILY anastrozole 1 mg tablet See Rx Instructions .ROUTE .COMPLEX Qty: 14 10RF Dose Instruction: TAKE 1 TABLET BY MOUTH DAILY Rx Instructions: TAKE 1 TABLET BY MOUTH DAILY multivitamin Tablet See Rx Instructions .ROUTE .COMPLEX Qty: 14 10RF Dose Instruction: TAKE 1 TABLET BY MOUTH DAILY Rx Instructions: TAKE 1 TABLET BY MOUTH DAILY levothyroxine 25 mcg tablet See Rx Instructions .ROUTE .COMPLEX Qty: 14 10RF Dose Instruction: TAKE ONE TABLET BY MOUTH DAILY AT 7:30AM FOR HYPOTHYROIDISM Rx Instructions: TAKE ONE TABLET BY MOUTH DAILY AT 7:30AM FOR HYPOTHYROIDISM docusate sodium 100 mg capsule See Rx Instructions .ROUTE .COMPLEX Qty: 7 10RF Dose Instruction: TAKE ONE CAPSULE BY MOUTH ONCE DAILY NEEDED. Rx Instructions: TAKE ONE CAPSULE BY MOUTH ONCE DAILY NEEDED. urea 40 % cream 1 applic topical BID Qty: 28 0RF diclofenac sodium 1 % Gel See Rx Instructions .ROUTE .COMPLEX Rx Instructions: APPLY NICKEL SIZE AMOUNT TO BOTH HANDS TWICE DAILY NEEDED FOR PAIN mirtazapine 15 mg tablet 15 mg PO BEDTIME aspirin 325 mg Tablet,Delayed Release (Dr/Ec) 325 mg PO DAILY Qty: 20 0RF Discharge Orders: Discharge ED (Routine); Ordered 04/15/25 Ordered By: Yogi Castrejon Referrals: Romeo Anderson DO [Primary Care Provider, [facility]] Patient Instructions: Patient Portal & [place] Instructions Activity Restrictions/Additional Instructions: Your images today were negative for any acute findings. EKG was also reassuring. Stable for discharge back to custodial, please continue taking your already prescribed medications as usual. Return with any new or worsening. Print Language: Ukrainian Coding Level of Care Code ED Service Parts Driver for Sheeba Almonte
--- NOTE | 2025-04-15 17:42 | ECG_ITS ---
[facility] Test Date: 2025-04-15 Pat Name: Rhina Brewer Department: Room: Gender: Female Tafe Registrar: : [id number] Requested By: Yogi Baxter Order Number: [id number] Román MD: Luis Martinez M.D. Measurements Intervals [place] Rate: 72 P: 55 MD: 166 QRS: -19 QRSD: 86 T: 54 QT: 410 QTc: 452 Interpretive Statements SINUS RHYTHM WITH OCCASIONAL SUPRAVENTRICULAR PREMATURE COMPLEXES Compared to ECG 07/11/2023 10:40:55 NO SIGNIFICANT CHANGE Electronically Signed On 04-15-2025 23:19:34 CDT by Luis Martinez M.D. [email or web address]
[2025-04-15 18:31] VITALS: BP 174/75; PULSE 72; O2SAT 98
[2025-04-15 20:10] LABS: Glucose Urine UA Negative (Normal); Nitrate Urine Negative (Negative); Specific Gravity, Urine 1.009 (1.005-1.030)
[2025-04-15 20:16] LABS: Add Urine Microscopic? YES
[2025-04-15 20:20] VITALS: BP 164/76; PULSE 80; O2SAT 96
[2025-04-15 20:57] VITALS: BP 140/93; PULSE 67; O2SAT 96
== END 2025-04-15 20:59 | disposition home or self-care (01) ==
PROVIDERS: Emergency Provider Physician Assistant; PCP Family Medicine
DX: S09.8XXA Other specified injuries of head, initial encounter (principal); W19.XXXA Unspecified fall, initial encounter; Z79.82 Long term (current) use of aspirin; I10 Essential (primary) hypertension; Z85.3 Personal history of malignant neoplasm of breast; Z85.038 Personal history of other malignant neoplasm of large intestine
CPT/HCPCS: 12345; 70450; 72125; 81001; 93005; 99284

== ENCOUNTER 2025-06-15 15:37 | Outpatient (CLI) | payer MEDICARE, SELFPAY ==
[2025-06-15 16:02] LABS: Hematocrit 36.1 % (36-47); Hemoglobin 11.20 g/dL (11.27-16.99); Mean Corpuscular HGB Conc 31.0 g/dL (30-55); Mean Corpuscular Hemoglobin 27.3 pg (27-33); Mean Corpuscular Volume 87.8 fl (85-98); Nucleated Red Blood Cells % 0 %; Platelet Count 326 10^3/cmm (157-399); Red Blood Count 4.11 10^6/uL (3.85-5.65); White Blood Count 7.80 10^3/uL (3.29-11.43)
[2025-06-15 17:03] LABS: Alanine Aminotransferase 14 U/L (0-33); Albumin Level 4.0 g/dL (3.5-5.2); Alkaline Phosphatase 118 U/L (35-105); Anion Gap 21.7 (5-19); Aspartate Amino Transferase 18 U/L (0-32); Blood Urea Nitrogen 34 mg/dL (8-23); Calcium 9.3 mg/dL (8.5-10.5); Carbon Dioxide 23 mmol/L (22-29); Chloride 101 mmol/L (98-107); Globulin 2.7 g/dL (1.3-4.6); Glucose 146 mg/dL (65-115); Osmolality Calculated 302 mOsm/kg (285-295); Potassium 4.7 mmol/L (3.5-5.1); Sodium 141 mmol/L (136-145); Total Protein 6.7 g/dL (6.6-8.7)
== END 2025-06-15 15:38 | disposition home or self-care (01) ==
PROVIDERS: PCP Family Medicine; Visit Provider Family Medicine
DX: I10 Essential (primary) hypertension (principal)
CPT/HCPCS: 80053; 85025

== ENCOUNTER 2025-07-08 18:15 | Outpatient (CLI) | payer MEDICARE, SELFPAY ==
[2025-07-08 22:18] LABS: C.Diff PCR (Lab) NEGATIVE (Negative)
== END 2025-07-08 18:16 | disposition home or self-care (01) ==
PROVIDERS: PCP Family Medicine; Visit Provider Family Medicine
DX: I10 Essential (primary) hypertension (principal)
CPT/HCPCS: 87493